=== PATIENT | female | born 1975 | race Asian ===

== ENCOUNTER 2016-08-23 13:11 | Day surgery (SDC) | payer OTHER ==
[~2016-08-23 13:11] MED LIST: OXYC-360 PO; PRENTAB72 PO; VITA100018 PO
[2016-08-23 13:44] VITALS: BP 137/96; PULSE 90; RESP 16; TEMP 98.6; O2SAT 100
--- NOTE | 2016-08-23 14:20 | PD.RAD ---
Post US Procedure Prog Note Pre Procedure Diagnosis: (1) Thyroid mass of unclear etiology Post Procedure Diagnosis: (1) Thyroid mass of unclear etiology Procedure Date: Aug 23, 2016 Supervising Radiologist: Alberto Matthews Proceduralist/Assist: Cristian Steinberg RDMS Anesthesia: Local Plan of Activity Patient to Unit: ROPU Patient Condition: Good See PACS Report for procedural detail/treatment Biopsy Side: Right Biopsy Procedure: Thyroid Specimen: Fine Needle Aspirate Alberto Matthews MD Aug 23, 2016 14:20
[2016-08-23] MEDS ORDERED: SODIUM BICARBONATE 8.4% INJ 50 ML ONE (14:26)
[2016-08-23] MEDS ORDERED: LIDOCAINE HCL 1% PF 30 ML VIAL ONE (14:26)
[2016-08-23 14:30] VITALS: BP 126/66; PULSE 80; RESP 16; O2SAT 100
[2016-08-23 14:45] VITALS: BP 123/69; PULSE 90; RESP 16; O2SAT 100
--- NOTE | 2016-08-23 14:57 | RADRPT ---
EXAM DATE/TIME: 08/23/2016 13:47 [facility] COMPARISON: No previous studies available for comparison. EXTERNAL COMPARISON: [facility], CT SOFT TISSUE NECK,W/ CONTRAST, Aug 09 2016. PET/CT - TUMOR METABOLISM, August. INDICATIONS : Right thyroid nodule. MEDICAL HISTORY : Right breast cancer. Carpal tunnel. Hypertension. Chemotherapy. SURGICAL HISTORY : Appendectomy. section. Right ear surgery. Right breast biopsy. ENCOUNTER: Initial ACUITY: 1 week PAIN SCORE: 0/10 LOCATION: Right neck ORGAN: Right thyroid lobe SPECIMENS: Five fine needle aspirate(s) submitted for pathologic evaluation. DEVICE: 25 gauge needle Post procedure scanning reveals no hematoma or other complication. The possibility does exist that the tissue obtained will be non-diagnostic. If the sample is non-romy gnostic a repeat biopsy or surgical biopsy may need to be performed. TECHNIQUE: 1. Ultrasound guidance for needle biopsy. 2. Needle biopsy. The risks, benefits, and alternatives to ultrasound guided needle biopsy were explained to the patien t in detail including the risk of bleeding and infection. Written and verbal informed consent was ob tained. With the patient on the ultrasound table, images were obtained. Overlying skin was prepped and drape d in the usual sterile fashion and Lidocaine was utilized as a local anesthetic. A needle was advanced into the identified target and the number of specimens as above obtained and kline bmitted for pathologic evaluation. The patient tolerated the procedure well and left the ultrasound suite in stable condition. CONCLUSION: Uncomplicated ultrasound guided needle biopsy. Alberto Matthews MD on August 23, 2016 at 14:55 Board Certified Radiologist. This report was verified electronically.
[2016-08-27] MEDS ORDERED: METO50TA11 PO (15:00)
[2016-08-27] MEDS ORDERED: HYDR12.56 PO (15:00)
== END 2016-08-23 14:55 | disposition home or self-care (01) ==
LOC: HROP 13:11 → HRIP 13:12 → HROP 14:55
PROVIDERS: ATTEND Internal Medicine Hematology & Oncology
DX: E04.1 Nontoxic single thyroid nodule (principal); C73 Malignant neoplasm of thyroid gland; C50.911 Malignant neoplasm of unspecified site of right female breast; I10 Essential (primary) hypertension
CPT/HCPCS: 10022; 76942; 88172; 88173

== ENCOUNTER → 2016-08-28 | Day surgery (SDC) | payer OTHER ==
[~2016-08-28] VITALS: Ht 154.9 cm; Wt 66.0 kg
[~2016-08-28] MED LIST changes: +BUPIVACAINE HCL PF 0.5% 30 ML VIAL ONE; +HEPARIN SODIUM - IV 10,000 UNITS/10 ML VIAL ONE; +HYDR12.56 PO; +Hydrocortisone Supp RECTAL; +K-TA10TA PO; +LACTATED RINGER'S 1000 ML INJ 1,000 ML ONE; +LEVA500T PO; +LIDO1KIT30 TOPICAL; +MECL-62 PO; +METO50TA11 PO; +MIDAZOLAM HCL 2 MG/2 ML VIAL ONE; +MORPHINE SULFATE 4 MG/ML INJ ONE; +ONDANSETRON HCL 4 MG/2 ML VIAL ONE; -OXYC-360 PO; +POTA-243 PO; -PRENTAB72 PO; +PREPCRE RECTAL; +PROC10TA PO; +SODIUM CHLORIDE 0.9% 20 ML VIAL ONE; -VITA100018 PO; +ZOFR4TAB PO; +ceFAZolin 2 GM PREMIX 50 ML ONE
[2016-08-28 11:45] VITALS: BP 120/84; PULSE 87; RESP 18; TEMP 98.3; O2SAT 100
[2016-08-28 14:55] VITALS: TEMP 98.4
--- NOTE | 2016-08-28 15:46 | RADRPT ---
EXAM DATE/TIME: 08/28/2016 15:16 [facility] COMPARISON: No previous studies available for comparison. INDICATIONS : Post infusaport. MEDICAL HISTORY : Right breast cancer. Hypertension. Chemotherapy. SURGICAL HISTORY : Right breast biopsy. ENCOUNTER: Initial ACUITY: 1 day PAIN SCORE: Non-responsive. LOCATION: Left chest FINDINGS: A single view of the chest demonstrates the lungs to be symmetrically aerated without evidence of mas s, infiltrate or effusion. The cardiomediastinal contours are unremarkable. Osseous structures are intact. Placement of left Ejtzzr-c-Rpkw catheter which terminates in superior vena cava near the righ t atrial junction no pneumothorax. CONCLUSION: Left Yatwov-l-Garw catheter placement no pneumothorax John Hairston MD on August 28, 2016 at 15:44 Board Certified Radiologist. This report was verified electronically.
[2016-08-28 16:35] VITALS: BP 111/71; PULSE 72; RESP 14; O2SAT 100
--- NOTE | 2016-09-03 18:15 | MP ---
cc: LENORE SANTOS DATE OF SURGERY 08/28/2016 PRINCIPAL DIAGNOSIS Right breast cancer PROCEDURE PERFORMED Left subclavian Nfwnss-F-Ikwv. SURGEON Lenore Santos MD ANESTHESIA TIVA INDICATION The patient is a 40-year-old female with a newly diagnosed clinical stage II right breast cancer. She requires neoadjuvant chemotherapy and now presents for Xhibbj-I-Gpzw placement to facilitate treatment. FINDINGS AT THE TIME OF SURGERY Normal left subclavian anatomy was identified. PROCEDURE PERFORMED After informed consent was obtained and site verification was performed, the patient was brought to the major operating room where she was given IV sedation. The right and left chest were prepped and draped in sterile fashion. She was given a single dose of IV Ancef and sequential compression hose were placed. The left infraclavicular area was anesthetized with 0.5% Marcaine plain and the left subclavian vein was identified via percutaneous cannulation. A J-wire was advanced via the Seldinger technique into the central circulation where its position was confirmed with fluoroscopy. Further local analgesia was then applied around the wire and both sharp and electrocautery dissection were used to create a subcutaneous pocket for the reservoir. The catheter was then measured out at 30 cm and cut off. A peel-away sheath and introducer were advanced over the wire using fluoroscopic guidance and the introducer and wire were removed. The catheter advanced easily through the peel-away sheath for a total distance of 20 cm and the peel-away sheath was then removed. Fluoroscopy demonstrated good catheter tip position at 17 cm and the catheter was cut off at this point and secured to the reservoir. The reservoir was noted to flush and aspirate easily and it was secured to the chest wall with a single 2-0 Prolene suture. Good hemostasis was noted and the wound was closed using interrupted 3-0 Vicryl subcutaneous sutures and a 4-0 Monocryl subcuticular suture. Steri-Strips and a sterile dressing were applied. The patient tolerated the procedure well with minimal blood loss and she was brought to the recovery room in good condition. All sponge and needle counts were correct at the conclusion of the case. Lenore Santos MD CEMartina/CYNTHIA /2:56 PM /6:11 PM
== END | disposition home or self-care (01) ==
LOC: CSDC 11:06
PROVIDERS: ATTEND Surgery
DX: Z45.2 Encounter for adjustment and management of vascular access device (principal); C50.911 Malignant neoplasm of unspecified site of right female breast; I10 Essential (primary) hypertension
CPT/HCPCS: 00532; 36561; 71010; 77001; C1788; J0690; J1644; J2250; J2270; J2405; J7120

== ENCOUNTER 2016-09-10 21:52 | Inpatient (IN) | payer OTHER ==
[~2016-09-10] VITALS: Ht 154.9 cm; Wt 66.6 kg
[~2016-09-10 21:52] MED LIST changes: -BUPIVACAINE HCL PF 0.5% 30 ML VIAL ONE; -HEPARIN SODIUM - IV 10,000 UNITS/10 ML VIAL ONE; -Hydrocortisone Supp RECTAL; -K-TA10TA PO; -LACTATED RINGER'S 1000 ML INJ 1,000 ML ONE; -LEVA500T PO; -LIDO1KIT30 TOPICAL; -MECL-62 PO; -MIDAZOLAM HCL 2 MG/2 ML VIAL ONE; -MORPHINE SULFATE 4 MG/ML INJ ONE; -ONDANSETRON HCL 4 MG/2 ML VIAL ONE; -POTA-243 PO; -PREPCRE RECTAL; -PROC10TA PO; -SODIUM CHLORIDE 0.9% 20 ML VIAL ONE; -ZOFR4TAB PO; -ceFAZolin 2 GM PREMIX 50 ML ONE
[2016-09-10 21:54] VITALS: BP 98/62; PULSE 123; RESP 20; TEMP 100.2; O2SAT 95
[2016-09-11] VITALS (11 sets, daily range): BP systolic 97–128; BP diastolic 54–63; PULSE 107–126; RESP 18–20; TEMP 98.2–101.6; O2SAT 96–100
[2016-09-11] MEDS ORDERED: ZOFR4TAB PO (02:32)
[2016-09-11] MEDS ORDERED: PROC10TA PO (02:32)
[2016-09-11] MEDS ORDERED: CEFEPIME INJ 2,000 MG in SODIUM CHLORIDE 0.9% INJ 100 ML IV STA (03:03)
[2016-09-11] MEDS ORDERED: VANCOMYCIN INJ 1,250 MG in SODIUM CHLOR 0.9% 250 ML INJ 250 ML IV STA (03:03)
--- NOTE | 2016-09-11 03:40 | RADRPT ---
EXAM DATE/TIME: 09/11/2016 01:24 [facility] COMPARISON: CHEST SINGLE AP, August 28, 2016, 15:16. INDICATIONS : Patient has had fever since yesterday. MEDICAL HISTORY : Right breast cancer. Carpal tunnel. Hypertension. Chemotherapy. SURGICAL HISTORY : Appendectomy. section. Right ear surgery. Right breast biopsy. ENCOUNTER: Initial ACUITY: 1 day PAIN SCORE: 0/10 LOCATION: Bilateral chest FINDINGS: A single view of the chest demonstrates the lungs to be symmetrically aerated without evidence of mas s, infiltrate or effusion. The cardiomediastinal contours are unremarkable. Osseous structures are intact. Left subclavian approach sultana catheter again seen. CONCLUSION: No acute disease. Adriano Manley MD on September 11, 2016 at 3:38 Board Certified Radiologist. This report was verified electronically.
[2016-09-11 04:01] LABS: AUTOMATED NEUTROPHIL # 2.5 TH/MM3 (1.8-7.7); EOSINOPHIL % 0.9 % (0.0-4.0); HEMATOCRIT 31.8 % (35.0-46.0); LYMPH % 26.6 % (9.0-44.0); LYMPHOCYTE # 1.1 TH/MM3 (1.0-4.8); MEAN CELL VOLUME 83.2 FL (80.0-100.0); MEAN CORPUSCULAR HEMOGLOBIN 29.4 PG (27.0-34.0); MEAN CORPUSCULAR HGB CONC 35.4 % (32.0-36.0); MONO % 10.1 % (0.0-8.0); NEUT % 61.4 % (16.0-70.0); PLATELET COUNT 117 TH/MM3 (150-450); RED BLOOD COUNT 3.82 MIL/MM3 (4.00-5.30); RED CELL DISTRIBUTION WIDTH 13.3 % (11.6-17.2); WHITE BLOOD COUNT 4.1 TH/MM3 (4.0-11.0)
[2016-09-11 04:08] LABS: HEMO FLAGS AUTO DIFF
[2016-09-11 04:26] LABS: ALKALINE PHOSPHATASE 151 U/L (45-117); ALT (GPT) 139 U/L (10-53); ANION GAP 9 MEQ/L (5-15); AST (GOT) 116 U/L (15-37); BICARBONATE 26.6 MEQ/L (21.0-32.0); BLOOD UREA NITROGEN 17 MG/DL (7-18); CHLORIDE 96 MEQ/L (98-107); GLOMERULAR FILTRATION RATE 64 ML/MIN (>89); SODIUM (NA) 132 MEQ/L (136-145); TOTAL BILIRUBIN ADULT 0.8 MG/DL (0.2-1.0)
[2016-09-11 04:36] LABS: POTASSIUM 2.9 MEQ/L (3.5-5.1)
--- NOTE | 2016-09-11 04:49 | PD ---
HPI Chief Complaint: Fever Time Seen by Provider: 03:03 Travel History International Travel<30 days: No Contact w/Intl Traveler<30days: No Traveled to known affect area: No History of Present Illness HPI 40-year-old female arrives to the ER complaining of rhinorrhea and cough and congestion. She has breast cancer. She is currently undergoing chemotherapy with most recent dose last night. She has had a fever or about 1 day. She reports rhinorrhea and cough with yellow phlegm production. She reports nausea without vomiting. Temperature maximum at home was 100.7. Oncology Dr Galeana. PMD Dr Rockwell. [facility] Past Medical History Cancer: Yes ( r breast ) Cardiovascular Problems: No Chemotherapy: Yes (09/05/16) Diabetes: No Endocrine: No Genitourinary: No Hepatitis: No Hiatal Hernia: No Hypertension: Yes Immune Disorder: No Musculoskeletal: No Neurologic: No Reproductive: No Respiratory: No Thyroid Disease: No Tetanus Vaccination: > 5 Years Influenza Vaccination: No ?: Not : 1 Para: 0 Miscarriage: 0 : 0 Past Surgical History Abdominal Surgery: Yes (appy) AICD: No Appendectomy: Yes Ear Surgery: Yes (r ear tympanic) Gynecologic Surgery: Yes (c section) Joint Replacement: No Pacemaker: No Other Surgery: Yes Social History Alcohol Use: No Tobacco Use: No Substance Use: No Allergies-Medications (Allergen,Severity, Reaction): Coded Allergies: Hydrocodone (Verified Allergy, Severe, Shortness of Breath, 09/11/16) Oxycodone (Verified Allergy, Severe, Shortness of Breath, 09/11/16) Methocarbamol (Verified Adverse Reaction, Severe, PRESSURE ON CHEST, ) Reported Meds & Prescriptions Reported Meds & Active Scripts Active Reported Zofran (Ondansetron HCl) 4 Mg Tab 4 Mg PO Q8HR PRN Prochlorperazine Maleate 10 Mg Tab 10 Mg PO Q6H PRN Hydrochlorothiazide 12.5 Mg Tab 12.5 Mg PO DAILY Metoprolol Succinate ER 24 HR (Metoprolol Succinate) 50 Mg Tab 50 Mg PO DAILY Review of Systems Except as stated in HPI: all other systems reviewed are Neg Physical Exam Narrative GENERAL: 40-year-old female well-nourished well-developed SKIN: Warm and dry. HEAD: Atraumatic. Normocephalic. Alopecia EYES: Pupils equal and round. No scleral icterus. No injection or drainage. ENT: No nasal bleeding or discharge. Mucous membranes pink and moist. NECK: Trachea midline. No JVD. CARDIOVASCULAR: Regular rate and rhythm. No murmur appreciated. RESPIRATORY: No accessory muscle use. Clear to auscultation. Breath sounds equal bilaterally. GASTROINTESTINAL: Abdomen soft, non-tender, nondistended. Hepatic and splenic margins not palpable. MUSCULOSKELETAL: No obvious deformities. No clubbing. No cyanosis. No edema. NEUROLOGICAL: Awake and alert. No obvious cranial nerve deficits. Motor grossly within normal limits. Normal speech. PSYCHIATRIC: Appropriate mood and affect; insight and judgment normal. Data Data Last Documented VS Vital Signs Date Time Temp Pulse Resp B/P Pulse Ox O2 Delivery O2 Flow Rate FiO2 09/11/16 04:13 98 Room Air 09/11/16 02:47 101.6 09/11/16 02:25 20 09/10/16 21:54 123 98/62 Orders Complete Blood Count With Diff (09/11/16 03:03) Comprehensive Metabolic Panel (09/11/16 03:03) Lactic Acid Sepsis Protocol (09/11/16 03:03) Urinalysis - C+S If Indicated (09/11/16 03:03) Influenzae A/B Antigen (09/11/16 03:03) Blood Culture (09/11/16 03:03) Chest, Single Ap (09/11/16 03:03) Blood Glucose (09/11/16 03:03) Ecg Monitoring (09/11/16 03:03) Iv Access Insert/Monitor (09/11/16 03:03) Oximetry (09/11/16 03:03) Oxygen Administration (09/11/16 03:03) Vancomycin Inj (Vancomycin Inj) (09/11/16 03:03) Cefepime Inj (Maxipime Inj) (09/11/16 03:03) Admit Order (Ed Use Only) (09/11/16 04:49) Labs Laboratory Tests Test 09/11/16 03:50 White Blood Count 4.1 TH/MM3 Red Blood Count 3.82 MIL/MM3 Hemoglobin 11.2 GM/DL Hematocrit 31.8 % Mean Corpuscular Volume 83.2 FL Mean Corpuscular Hemoglobin 29.4 PG Mean Corpuscular Hemoglobin 35.4 % Concent Red Cell Distribution Width 13.3 % Platelet Count 117 TH/MM3 Mean Platelet Volume 9.3 FL Neutrophils (%) (Auto) 61.4 % Lymphocytes (%) (Auto) 26.6 % Monocytes (%) (Auto) 10.1 % Eosinophils (%) (Auto) 0.9 % Basophils (%) (Auto) 1.0 % Neutrophils # (Auto) 2.5 TH/MM3 Lymphocytes # (Auto) 1.1 TH/MM3 Monocytes # (Auto) 0.4 TH/MM3 Eosinophils # (Auto) 0.0 TH/MM3 Basophils # (Auto) 0.0 TH/MM3 CBC Comment AUTO DIFF Differential Total Cells 100 Counted Neutrophils % (Manual) 65 % Band Neutrophils % 9 % Lymphocytes % 16 % Monocytes % 9 % Neutrophils # (Manual) 3.1 TH/MM3 Metamyelocytes 1 % Differential Comment FINAL DIFF MANUAL Dohle Bodies PRESENT Platelet Estimate LOW Platelet Morphology Comment NORMAL Red Cell Morphology Comment NORMAL Sodium Level 132 MEQ/L Potassium Level 2.9 MEQ/L Chloride Level 96 MEQ/L Carbon Dioxide Level 26.6 MEQ/L Anion Gap 9 MEQ/L Blood Urea Nitrogen 17 MG/DL Creatinine 0.98 MG/DL Estimat Glomerular Filtration 64 ML/MIN Rate Random Glucose 110 MG/DL Lactic Acid Level 1.5 mmol/L Calcium Level 8.6 MG/DL Total Bilirubin 0.8 MG/DL Aspartate Amino Transf 116 U/L (AST/SGOT) Alanine Aminotransferase 139 U/L (ALT/SGPT) Alkaline Phosphatase 151 U/L Total Protein 7.8 GM/DL Albumin 3.7 GM/DL [facility] Medical Decision Making Medical Screen Exam Complete: Yes Emergency Medical Condition: Yes Medical Record Reviewed: Yes Differential Diagnosis Sepsis due to pneumonia, UTI, viral syndrome, influenza, allergies, UTI, dehydration Narrative Course CBC & BMP Diagram 09/11/16 03:50 AST 116 ALT 139 Alk phos 151 Last 24 hours Impressions Chest X-Ray 09/11/16 0303 Signed Impressions: Service Date/Time: Sunday, September 11, 2016 01:24 - CONCLUSION: No acute disease. Adriano Manley MD Patient is on chemotherapy. She has a fever. Blood cultures obtained cefepime and vancomycin started. Case discussed with Dr. Archuleta Sepsis Criteria SIRS Criteria (2 or more): Temp > 100.9 or < 96.8, RR > 20 or PaCO2 < 32 Sepsis Criteria (SIRS+source): Infect source susp/known Diagnosis Primary Impression: Sepsis Qualified Code: A41.9 - Sepsis, due to unspecified organism Additional Impressions: Abnormal LFTs (liver function tests) Hypokalemia Effect of chemotherapy Qualified Code: T45.1X5A - Effect of chemotherapy, initial encounter Admitting Information Admitting Physician Requests: Admit Phoenix West MD Sep 11, 2016 04:49
[2016-09-11 04:58] LABS: BANDS 9 % (0-6); METAMYELOCYTES 1 % (0-1); NEUTROPHIL # MANUAL DIFF 3.1 TH/MM3 (1.8-7.7); PLATELET MORPHOLOGY NORMAL (NORMAL); POLYS (SEG NEUTROPHILS) 65 % (16-70); SCAN/DIFF FINAL DIFF MANUAL; WBC DIFF SAMPLE 100
[2016-09-11 04:59] LABS: DOHLE BODIES PRESENT (NONE SEEN); PLATELET ESTIMATE SMEAR LOW (NORMAL)
[2016-09-11] MEDS ORDERED: POTASSIUM CHLORIDE 20 MEQ CONTROLLED RELEASE TAB PO ONE (06:45)
[2016-09-11] MEDS ORDERED: SODIUM CHLORIDE 0.9% FLUSH 5 ML FLUSH FLUSH PRN (07:00)
[2016-09-11] MEDS ORDERED: BISACODYL 10 MG SUPP PR PRN (07:00)
[2016-09-11] MEDS ORDERED: ACETAMINOPHEN 325 MG TAB PO ONE (07:00)
[2016-09-11] MEDS ORDERED: ONDANSETRON HCL 4 MG/2 ML VIAL IVP PRN (07:00)
[2016-09-11] MEDS ORDERED: NALOXONE HCL 0.4 MG/ML AMP IV PRN (07:00)
[2016-09-11] MEDS ORDERED: ACETAMINOPHEN 325 MG TAB PO PRN (07:00)
[2016-09-11] MEDS ORDERED: HYDROmorphone HCL PF 1 MG/ML VIAL IV PUSH ONE (07:45)
[2016-09-11] MEDS: DOCUSATE SODIUM 100 MG CAP PO SCH ×3 (08:04→20:07)
[2016-09-11] MEDS: ENOXAPARIN SODIUM 40 MG/0.4 ML SYRINGE SQ SCH (08:05)
[2016-09-11] MEDS: SODIUM CHLORIDE 0.9% FLUSH 5 ML FLUSH FLUSH SCH ×2 (09:00→20:08)
[2016-09-11 11:55] LABS: BACTERIA, URINE FEW /hpf; BLOOD, URINE MOD (NEG); GLUCOSE,URINE NEG (NEG); KETONE, URINE NEG (NEG); MUCUS URINE FEW /lpf (OCC); NITRITE,URINE NEG (NEG); SQUAMOUS EPITHELIAL CELL URINE <1 /hpf (0-5); URINE COLOR YELLOW (YELLW/STRAW)
[2016-09-11 11:57] LABS: COMMENT (UR) CATH-CULTURE IND; CULTURE IF INDICATED CATH CULTURE IND
--- NOTE | 2016-09-11 14:14 | HHI.HP ---
History of Present Illness Service Primary Care Primary Care Physician Eriberto Rockwell, DO Admission Diagnosis Sepsis (Respiratory Source) Diagnoses: (1) Sepsis Diagnosis: Principal (2) Thyroid mass of unclear etiology Diagnosis: Secondary (3) Abnormal LFTs (liver function tests) (4) Effect of chemotherapy Diagnosis: Secondary (5) Breast cancer Diagnosis: Secondary History of Present Illness This is a very pleasant 40 y/o [place] female who presented to the ED with SOB, fever and cough. She was diagnosed with right breast cancer in 07/2016 and has been under treatment by Dr. Galeana with chemotherapy and neulasta for both the breast cancer. The patient states she is also being followed by Dr. Galeana for a thyroid nodule. Upon admission she was febrile up to 101.6. She has a very poor appetite and has pain with swallowing, so is not drinking and eating as she usually does. She has been admitted for further evaluation and management. Sepsis Criteria SIRS Criteria (2 or more): Temp > 100.9 or < 96.8, Heart rate over 90 Criteria Outcome: Meets SIRS criteria Review of Systems Constitutional: COMPLAINS OF: Fatigue, Fever, Change in appetite Ears, nose, mouth, throat: COMPLAINS OF: Throat pain, Sinus Pain Respiratory: COMPLAINS OF: Shortness of breath Past Family Social History Allergies: Coded Allergies: Hydrocodone (Verified Allergy, Severe, Shortness of Breath, 09/11/16) Oxycodone (Verified Allergy, Severe, Shortness of Breath, 09/11/16) Methocarbamol (Verified Adverse Reaction, Severe, PRESSURE ON CHEST, ) Past Medical History Hypertension Thyroid nodule Right breast cancer on chemo Carpal tunnel surgery Past Surgical History Right ear surgery X 2 Right breast biopsy X 2 section Appendectomy Reported Medications Reported Meds & Active Scripts Active Reported Zofran (Ondansetron HCl) 4 Mg Tab 4 Mg PO Q8HR PRN Prochlorperazine Maleate 10 Mg Tab 10 Mg PO Q6H PRN Hydrochlorothiazide 12.5 Mg Tab 12.5 Mg PO DAILY Metoprolol Succinate ER 24 HR (Metoprolol Succinate) 50 Mg Tab 50 Mg PO DAILY Active Ordered Medications Current Medications Medications (Trade) Dose Ordered Sig/Carlitos Route Start Time Stop Time Status Last Admin (NS Flush) 2 ml UNSCH PRN FLUSH 09/11/16 07:00 (NS Flush) 2 ml BID FLUSH 09/11/16 09:00 (Tylenol) 650 mg Q4H PRN PO 09/11/16 07:00 (Zofran Inj) 4 mg Q6H PRN IVP 09/11/16 07:00 (Dulcolax Supp) 10 mg DAILY PRN NC 09/11/16 07:00 (Colace) 100 mg Q12HR PO 09/11/16 07:00 09/11/16 08:04 (Narcan Inj) 0.4 mg UNSCH PRN IV 09/11/16 07:00 (Lovenox Inj) 40 mg Q24H SQ 09/11/16 08:00 09/11/16 08:05 Family History Positive for diabetes and hypertension, both parents alive and well. Social History Negative for any history of tobacco, ETOH or illicits. Physical Exam Vital Signs Vital Signs Date Time Temp Pulse Resp B/P Pulse Ox O2 Delivery O2 Flow Rate FiO2 09/11/16 09:50 98.2 114 18 128/59 98 Room Air 09/11/16 08:50 100.1 115 20 97/57 98 Room Air 09/11/16 07:35 99 21 09/11/16 07:01 107 97/54 09/11/16 06:43 99.1 110 18 99/63 100 Room Air 09/11/16 04:13 98 Room Air 09/11/16 04:13 98 Room Air 09/11/16 02:47 101.6 09/11/16 02:25 20 100 Room Air 09/10/16 21:54 100.2 123 20 98/62 95 Room Air Physical Exam GENERAL: This is a well-nourished, well-developed patient, in no apparent distress. SKIN: No rashes, ecchymoses or lesions. Cool and dry. HEAD: Atraumatic. Normocephalic. No temporal or scalp tenderness. EYES: Pupils equal round and reactive. Extraocular motions intact. No scleral icterus. No injection or drainage. ENT: Nose without bleeding, purulent drainage or septal hematoma. Throat without erythema, tonsillar hypertrophy or exudate. Uvula midline. Airway patent. NECK: Trachea midline. No JVD or lymphadenopathy. Supple, nontender, no meningeal signs. CARDIOVASCULAR: Tachycardic rate, regular rhythm without murmurs, gallops, or rubs. RESPIRATORY: Scattered wheezes and rhonchi GASTROINTESTINAL: Abdomen soft, non-tender, nondistended. No hepato-splenomegaly , or palpable masses. No guarding. MUSCULOSKELETAL: Extremities without clubbing, cyanosis, or edema. No joint tenderness, effusion, or edema noted. No calf tenderness. Negative Homans sign bilaterally. NEUROLOGICAL: Awake and alert. Cranial nerves II through XII intact. Motor and sensory grossly within normal limits. Five out of 5 muscle strength in all muscle groups. Normal speech. Laboratory Laboratory Tests Test 09/11/16 09/11/16 09/11/16 03:50 09:55 11:20 White Blood Count 4.1 Red Blood Count 3.82 Hemoglobin 11.2 Hematocrit 31.8 Mean Corpuscular Volume 83.2 Mean Corpuscular Hemoglobin 29.4 Mean Corpuscular Hemoglobin 35.4 Concent Red Cell Distribution Width 13.3 Platelet Count 117 Mean Platelet Volume 9.3 Neutrophils (%) (Auto) 61.4 Lymphocytes (%) (Auto) 26.6 Monocytes (%) (Auto) 10.1 Eosinophils (%) (Auto) 0.9 Basophils (%) (Auto) 1.0 Neutrophils # (Auto) 2.5 Lymphocytes # (Auto) 1.1 Monocytes # (Auto) 0.4 Eosinophils # (Auto) 0.0 Basophils # (Auto) 0.0 CBC Comment AUTO DIFF Differential Total Cells 100 Counted Neutrophils % (Manual) 65 Band Neutrophils % 9 Lymphocytes % 16 Monocytes % 9 Neutrophils # (Manual) 3.1 Metamyelocytes 1 Differential Comment FINAL DIFF MANUAL Dohle Bodies PRESENT Platelet Estimate LOW Platelet Morphology Comment NORMAL Red Cell Morphology Comment NORMAL Sodium Level 132 Potassium Level 2.9 Chloride Level 96 Carbon Dioxide Level 26.6 Anion Gap 9 Blood Urea Nitrogen 17 Creatinine 0.98 Estimat Glomerular Filtration 64 Rate Random Glucose 110 Lactic Acid Level 1.5 Calcium Level 8.6 Total Bilirubin 0.8 Aspartate Amino Transf 116 (AST/SGOT) Alanine Aminotransferase 139 (ALT/SGPT) Alkaline Phosphatase 151 Total Protein 7.8 Albumin 3.7 Troponin I LESS THAN 0.02 Urine Color YELLOW Urine Turbidity HAZY Urine pH 6.0 Urine Specific [place] 1.014 Urine Protein 30 Urine Glucose (UA) NEG Urine Ketones NEG Urine Occult Blood MOD Urine Nitrite NEG Urine Bilirubin NEG Urine Urobilinogen LESS THAN 2.0 Urine Leukocyte Esterase NEG Urine RBC 20 Urine WBC 1 Urine Squamous Epithelial <1 Cells Urine Bacteria FEW Urine Mucus FEW Microscopic Urinalysis Comment CATH-CULTURE IND Date/Time Procedure Status Source Growth 09/11/16 11:20 Urine Culture Received Urine Catheterized Urine Pending 09/11/16 04:00 Influenza Types A,B Antigen (JORGE) - Final Complete Nasal Aspirate NEGATIVE FOR FLU A AND B ANTIGEN.... 09/11/16 03:50 Aerobic Blood Culture Received Blood Peripheral Pending 09/11/16 03:50 Anaerobic Blood Culture Received Blood Peripheral Pending Result Diagram: 09/11/16 0350 09/11/16 0350 Imaging Last 24 hours Impressions Chest X-Ray 09/11/16 0303 Signed Impressions: Service Date/Time: Friday, September 11, 2016 01:24 - CONCLUSION: No acute disease. Adriano Manley MD Assessment and Plan Problem List: (1) Thyroid mass of unclear etiology Status: Chronic Plan: Followed by Dr. Galeana. (2) Hypokalemia Status: Acute Plan: Repleted in ED. Recheck pending. (3) Sepsis Status: Acute Plan: Lactate negative, blood cultures drawn, ID consult requested for assistance as patient is immunocompromised, receiving chemotherapy for breast cancer. (4) Abnormal LFTs (liver function tests) Status: Acute Plan: May be due to chemotherapy. Dr. Galeana consulted to follow as she is currently treating patient. (5) Breast cancer Status: Acute Plan: Consult to Dr. Galeana. Discussed Condition With Pt., , RN, Dr. Rockwell. Problem Qualifiers (1) Sepsis: Qualified Code: A41.9 - Sepsis, due to unspecified organism (2) Effect of chemotherapy: Qualified Code: T45.1X5A - Effect of chemotherapy, initial encounter (3) Breast cancer: Qualified Code: C50.511 - Malignant neoplasm of lower-outer quadrant of right female breast Carmen Calvillo Sep 11, 2016 14:14
[2016-09-11] MEDS ORDERED: Vancomycin Consult Pharmacy 1 EA OTHER SCH (14:45)
--- NOTE | 2016-09-11 15:04 | PD.CONS ---
History of Present Illness Service Infectious disease Consult Requested By Dr Rockwell Reason for Consult Evaluate patient with fever Primary Care Physician Eriberto Rockwell, DO Diagnoses: History of Present Illness Patient is a 40-year-old female with a diagnosis of right breast cancer, has been undergoing chemotherapy, presented to the hospital complaining of 2-3 day history of cough with yellow sputum production, as well as 1 day history of fevers. Patient is on her second cycle of chemotherapy, and the last dose of chemotherapy she got was September 05. After the chemotherapy she started having some cough with yellow sputum production, as well as some chest discomfort especially when she coughs. Her appetite has been poor. Then she started having fevers up to 100.7 her WBC is normal. Urinalysis unremarkable. She did have some mild dysuria. She denies any nausea or vomiting or any abdominal pain. After her first chemotherapy she had some problem with mild sores which improved. This time she did not have any sores in her mouth. Patient's liver function tests are also abnormal, and it was normal from blood work dated September 05. Patient states she's had previous history of gallstones. Patient stated that her 4-year-old son to daycare has been sick the last 2 weeks with some runny nose and cough. The son however has not been had any fevers. Infectious disease consultations were requested to evaluate the patient. Review of Systems Constitutional: COMPLAINS OF: Fever, Chills, Change in appetite Eyes: DENIES: Eye pain Ears, nose, mouth, throat: DENIES: Oral lesions, Throat pain, Ear Pain, Sinus Pain, Toothache Respiratory: COMPLAINS OF: Cough, Sputum production, DENIES: Shortness of breath Cardiovascular: COMPLAINS OF: Chest pain, DENIES: Palpitations, Syncope Gastrointestinal: DENIES: Abdominal pain, Diarrhea, Nausea, Vomiting, Difficulty Swallowing Genitourinary: COMPLAINS OF: Dysuria Musculoskeletal: COMPLAINS OF: Muscle aches, DENIES: Joint pain, Joint Swelling Integumentary: DENIES: Rash Neurologic: DENIES: Headache Psychiatric: DENIES: Anxiety, Confusion Past Family Social History Allergies: Coded Allergies: Hydrocodone (Verified Allergy, Severe, Shortness of Breath, 09/11/16) Oxycodone (Verified Allergy, Severe, Shortness of Breath, 09/11/16) Methocarbamol (Verified Adverse Reaction, Severe, PRESSURE ON CHEST, 2/8/ 17) Past Medical History Hypertension Thyroid nodule Right breast cancer on chemo Carpal tunnel surgery One History of gallstones Past Surgical History Right ear surgery X 2 Right breast biopsy X 2 section Appendectomy Port placement Active Ordered Medications Lovenox Zofran Tylenol Dulcolax Colace Got one dose of cefepime and Vancomycin Social History , has a 4-year-old son Works as a TIMBER [employer] No smoking No ETOH abuse No illicit drug use Physical Exam Vital Signs Vital Signs Date Time Temp Pulse Resp B/P Pulse Ox O2 Delivery O2 Flow Rate FiO2 09/11/16 09:50 98.2 114 18 128/59 98 Room Air 09/11/16 08:50 100.1 115 20 97/57 98 Room Air 09/11/16 07:35 99 21 09/11/16 07:01 107 97/54 09/11/16 06:43 99.1 110 18 99/63 100 Room Air 09/11/16 04:13 98 Room Air 09/11/16 04:13 98 Room Air 09/11/16 02:47 101.6 09/11/16 02:25 20 100 Room Air 09/10/16 21:54 100.2 123 20 98/62 95 Room Air Physical Exam GENERAL: This is a well-nourished, well-developed femal,e awake and alert, looks acutely ill appearing, in no apparent distress. SKIN: Warm and dry, no generalized rash. HEAD: Atraumatic. Normocephalic. No temporal or scalp tenderness. Hair has been shaved short EYES: Conjunctivae. Pupils equal round and reactive. Extraocular motions intact. No scleral icterus. No injection or drainage. ENT: Nose without bleeding, or purulent drainage. Moist oral mucosa. No oral thrush. Throat with erythema, but no exudate. Uvula midline. Airway patent. NECK: Trachea midline. No JVD or lymphadenopathy. Supple, nontender, no meningeal signs. CARDIOVASCULAR: Regular rate and rhythm without murmurs, gallops, or rubs. RESPIRATORY: Clear to auscultation. Breath sounds equal bilaterally. No wheezes , rales, or rhonchi. Decreased vocal fremitus R base. Port L upper chest, accessed, with no evidence of infection GASTROINTESTINAL: Abdomen soft, non-tender, nondistended. Bowel sounds are present and normoactive. No hepato-splenomegaly, or palpable masses. No guarding. MUSCULOSKELETAL: Extremities without clubbing, cyanosis, or edema. No joint tenderness, effusion, or edema noted. No calf tenderness. Negative Homans sign bilaterally. NEUROLOGICAL: Awake and alert. Cranial nerves II through XII intact. Motor and sensory grossly within normal limits. Five out of 5 muscle strength in all muscle groups. Normal speech. PSYCH: Calm and cooperative LINE: Port without any evidence of infection Laboratory Laboratory Tests Test 09/11/16 09/11/16 09/11/16 03:50 09:55 11:20 White Blood Count 4.1 Red Blood Count 3.82 Hemoglobin 11.2 Hematocrit 31.8 Mean Corpuscular Volume 83.2 Mean Corpuscular Hemoglobin 29.4 Mean Corpuscular Hemoglobin 35.4 Concent Red Cell Distribution Width 13.3 Platelet Count 117 Mean Platelet Volume 9.3 Neutrophils (%) (Auto) 61.4 Lymphocytes (%) (Auto) 26.6 Monocytes (%) (Auto) 10.1 Eosinophils (%) (Auto) 0.9 Basophils (%) (Auto) 1.0 Neutrophils # (Auto) 2.5 Lymphocytes # (Auto) 1.1 Monocytes # (Auto) 0.4 Eosinophils # (Auto) 0.0 Basophils # (Auto) 0.0 CBC Comment AUTO DIFF Differential Total Cells 100 Counted Neutrophils % (Manual) 65 Band Neutrophils % 9 Lymphocytes % 16 Monocytes % 9 Neutrophils # (Manual) 3.1 Metamyelocytes 1 Differential Comment FINAL DIFF MANUAL Dohle Bodies PRESENT Platelet Estimate LOW Platelet Morphology Comment NORMAL Red Cell Morphology Comment NORMAL Sodium Level 132 Potassium Level 2.9 Chloride Level 96 Carbon Dioxide Level 26.6 Anion Gap 9 Blood Urea Nitrogen 17 Creatinine 0.98 Estimat Glomerular Filtration 64 Rate Random Glucose 110 Lactic Acid Level 1.5 Calcium Level 8.6 Total Bilirubin 0.8 Aspartate Amino Transf 116 (AST/SGOT) Alanine Aminotransferase 139 (ALT/SGPT) Alkaline Phosphatase 151 Total Protein 7.8 Albumin 3.7 Troponin I LESS THAN 0.02 Urine Color YELLOW Urine Turbidity HAZY Urine pH 6.0 Urine Specific [place] 1.014 Urine Protein 30 Urine Glucose (UA) NEG Urine Ketones NEG Urine Occult Blood MOD Urine Nitrite NEG Urine Bilirubin NEG Urine Urobilinogen LESS THAN 2.0 Urine Leukocyte Esterase NEG Urine RBC 20 Urine WBC 1 Urine Squamous Epithelial <1 Cells Urine Bacteria FEW Urine Mucus FEW Microscopic Urinalysis Comment CATH-CULTURE IND Date/Time Procedure Status Source Growth 09/11/16 11:20 Urine Culture Received Urine Catheterized Urine Pending 09/11/16 04:00 Influenza Types A,B Antigen (JORGE) - Final Complete Nasal Aspirate NEGATIVE FOR FLU A AND B ANTIGEN.... 09/11/16 03:50 Aerobic Blood Culture Received Blood Peripheral Pending 09/11/16 03:50 Anaerobic Blood Culture Received Blood Peripheral Pending Result Diagram: 09/11/16 0350 09/11/16 0350 Imaging RADIOLOGY STUDIES/FILMS REVIEWED Chest X-Ray 09/11/16 0303 Signed Impressions: Service Date/Time: Sunday, September 11, 2016 01:24 - CONCLUSION: No acute disease. Adriano Manley MD Assessment and Plan Assessment and Plan IMPRESSION Sepsis on admission, symptoms all point to respiratory, possibly early PNA, - CXR clear, but she is congested and has pleuritic pain when she coughs Possible early PNA - ?atypical has some ear pain and elevated LFT R breast CA - undergoing chemo Elevated LFT, exam is benigh, ?due to sepsis RECOMMENDATION Follow C/S Check legio and pneumo Ag CT chest US GB Zosyn, vanco , and Zithromax Monitor temps Follow counts Monitor progress I will determine course of Abx depending on results of work-up and culture results I will follow along with you Thank you for this consultation Discussed Condition With Explained plan to the patient Marii Dacosta MD Sep 11, 2016 15:04
[2016-09-11] MEDS: PIPERACIL-TAZO 4.5 GM PREMIX 100 ML IV SCH ×2 (16:00→22:17)
[2016-09-11] MEDS ORDERED: IOHEXOL 350 MG/ML 10 ML VIAL (for RAD DIAG) IV ONE (16:28)
--- NOTE | 2016-09-11 16:58 | RADRPT ---
EXAM DATE/TIME: 09/11/2016 16:15 [facility] COMPARISON: No previous studies available for comparison. INDICATIONS : Sepsis, cough, and respiratory issues IV CONTRAST: 97 cc Omnipaque 350 (iohexol) IV RADIATION DOSE: 7.89 CTDIvol (mGy) MEDICAL HISTORY : Hypertension. SURGICAL HISTORY : None. ENCOUNTER: Subsequent ACUITY: 1 day PAIN SCALE: 4/10 LOCATION: chest TECHNIQUE: Volumetric scanning of the chest was performed. Using automated exposure control and adjustment of the mA and/or kV according to patient size, radiation dose was kept as low as reasonab ly achievable to obtain optimal diagnostic quality images. FINDINGS: Very minimal air-space disease is seen in the right middle lobe and the left base. There is no axillary adenopathy. There is no radiographically significant mediastinal adenopathy. T here is no evidence for central pulmonary emboli. There is no associated pleural effusion. Gallstones are evident in a contracted gallbladder. A small 1 cm low density lesion is present in th e liver, too small to characterize. CONCLUSION: 1. Minimal air-space disease as described above. 2. There is no evidence for central pulmonary emboli. 3. Gallstones in a small contracted gallbladder. Lopez Spangler MD FACR on September 11, 2016 at 16:48 Board Certified Radiologist. This report was verified electronically.
[2016-09-11] MEDS: VANCOMYCIN 1,000 MG/NS 250 ML IV SCH ×2 (17:19)
[2016-09-11] MEDS: AZITHROMYCIN 250 MG TAB PO SCH (17:25)
--- NOTE | 2016-09-11 18:32 | EKG ---
Date Performed: 09/11/2016 Time Performed: 07:08:20 PTAGE: 40 years EKG: SINUS TACHYCARDIA ST DEVIATION AND MODERATE T-WAVE ABNORMALITY, CONSIDER ANTEROLATERAL ISCH EMIA ST DEVIATION AND MODERATE T-WAVE ABNORMALITY, CONSIDER INFERIOR ISCHEMIA ABNORMAL ECG NO PREVIOUS TRACING DOCTOR: Mukund West Interpretating Date/Time 09/11/2016 18:32:15
--- NOTE | 2016-09-11 19:17 | RADRPT ---
EXAM DATE/TIME: 09/11/2016 18:09 [facility] COMPARISON: No previous studies available for comparison. EXTERNAL COMPARISON : [facility], PET/CT - TUMOR METABOLISM, August 07, 2016 INDICATIONS : Abnormal labs. MEDICAL HISTORY : Hypertension. Dyspnea. Right breast cancer. Thyroid mass. Sepsis. Pneumonia. Carpal tunnel. Galls tones. SURGICAL HISTORY : section. Appendectomy. Right ear surgery. Right breast biopsy. Chemotherapy. ENCOUNTER: Initial ACUITY: 1 day PAIN SCORE: 0/10 LOCATION: Right upper quadrant MEASUREMENTS: LIVER: 13.4 cm length COMMON DUCT: 6 mm RIGHT KIDNEY: 11.2 x 4.6 x 4.4 cm FINDINGS: Pancreas not well-visualized. 7 mm cyst right lobe liver. Portal venous flow normal direction. Multip le gallstones present in the gallbladder. Negative sonographic Jenkins's sign. Right kidney measures 1 1.2 cm in length without hydronephrosis. CONCLUSION: 1. Gallstones in gallbladder. No biliary ductal dilatation. Small cyst right lobe liver. No free flui d. Bennie Ivy MD on September 11, 2016 at 19:14 Board Certified Radiologist. This report was verified electronically.
[2016-09-11] MEDS ORDERED: diphenhydrAMINE HCL 25 MG CAP PO ONE (19:30)
[2016-09-11 20:37] LABS: HEMOGLOBIN A1a 1.1 %
[2016-09-11 20:38] LABS: HEMOGLOBIN A1b 0.9 %; HEMOGLOBIN Ao 85.1 %; HEMOGLOBIN F 1.1 %; HEMOGLOBIN LA1C 1.8 %; HEMOGLOBIN P3 3.7 %
--- NOTE | 2016-09-11 22:29 | MB ---
cc: ISELA QUEZADA GERALD R. D.O. DATE OF CONSULTATION: 09/11/2016 DATE OF : [address] Rockwell CHIEF COMPLAINT Dr. Rockwell requested consultation for Ms. Encinas regarding HER2/abel over expressing breast cancer. HISTORY OF PRESENT ILLNESS Mrs. Encinas is a 40-year-old woman, well-known patient, with history of hypertension diagnosed locally advanced HER2/abel over expressing right breast cancer. She had high-risk disease in terms of her breast cancer. Initial CT PET scan staging shows no evidence of metastatic disease. She was started on neoadjuvant chemotherapy with Taxotere, carboplatin, Herceptin and pertuzumub. She did extremely well with her first cycle of chemotherapy. Her treatment was administered peripheral vein access. During the course of staging evaluation she was found to have a right thyroid nodule. She underwent right thyroid FNA on August 23, 2016, that shows second primary, papillary thyroid carcinoma. Shortly thereafter she underwent Hbdlyi-J-Ebbr placement at the same day surgery center by Dr. Ordonez on August 28, 2016. She was seen at [facility] on September 06 to receive her cycle two of chemotherapy. She reports sick contact with her son. Shortly after chemotherapy, she developed cough, yellowish sputum production. She had chest discomfort when she coughed. Her appetite is poor from difusa. She developed fevers and came to the hospital for evaluation. She was seen by Dr. Phoenix Carreon. She had complained of rhinorrhea, cough, yellow sputum. She is undergoing chemotherapy, however, she was not neutropenic. Her white blood cell count was 4.1 because of Neulasta support. Troponin-I was negative for her chest pain. She was hyponatremic. Potassium was 2.9. Her liver functions were slightly elevated. Her son had been sick and goes to day care. 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 She was admitted and promptly started on antibiotic therapy. Blood cultures were obtained. Influenza A and B was negative. Imaging study was coordinated by Dr. Dacosta, suspecting respiratory source. There is minimal air space disease in the right lower lung. There is no evidence of central pulmonary emboli. The infiltrate in the right lower lung was not present when compared to previous CT PET scan the month prior. This is the suspected source of her infection. REVIEW OF SYSTEMS: She has decrease in appetite. She has subjective weight loss. She denies any headache, no vision changes. She is quite anxious about her pneumonia. Her father is coming in from [place]. Her 4 year-old son is well. She denies any nausea and vomiting. Chemotherapy is often associated with diarrhea. She has no diarrhea at present. She feels itchy after her antibiotic therapy. She denies any chest pain or shortness of breath at present. The rest of the review of systems is negative. PAST MEDICAL HISTORY: Locally advanced HER2/abel over expressing breast cancer. Right thyroid nodule, second primary papillary cancer, hypertension, difusa, chemotherapy induced anemia, right lung infiltrate. PAST SURGICAL HISTORY Right ear surgery, breast biopsy, , appendectomy. ALLERGIES: ALLERGIES TO HYDROCODONE, ACETAMINOPHEN AND OXYCODONE. CURRENT MEDICATIONS Include: 1. Diphenhydramine. 2. Vancomycin 3. Zithromax. 4. Low-molecular weight heparin Lovenox. 5. Bisacodyl p.r.n. FAMILY HISTORY Mother is alive and well. No family history of cancer. SOCIAL HISTORY She is , lives with her . 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 She is a never smoker. Denies any alcohol or illicit drug use. VITAL SIGNS: Temperature 99.3, heart rate is 110-120, blood pressure 116/62, saturation 96%. GENERAL: Mrs. Encinas is a well-developed, anxious appearing woman with alopecia. HEENT: Pupils equal, round, reactive to light and accommodation. Oropharynx is clear. No thrush. Neck: Supple. LUNGS: Clear to auscultation. Cardiovascular: Exam reveals tachycardia. Abdomen is benign. Lower extremities with no edema. Neurological: Exam is nonfocal. LABORATORY DATA Significant for hemoglobin of 11.2, platelet count 117. Potassium 2.9, on repeat is 3.2. IMAGING STUDIES: Described above. ASSESSMENT/PLAN Mrs. Encinas is a 40 year old woman with history of hypertension diagnosed with locally advanced HER2/abel over expressing breast cancer with right breast cancer. She is receiving perioperative chemotherapy, Taxotere, carboplatin, Herceptin, pertuzumab. Her course is complicated by febrile illness secondary to respiratory source of infection, right lower lung infiltrate. Antibiotic therapy is coordinated by infectious disease. Clinically she is improving. She remains tachycardiac. She is also quite anxious. Emotional support was provided. She has a supportive who is at bedside. Her son who is 4, is keeping her company as well. She complains mainly of decrease in taste. She is worried that she has decrease in her appetite. She has tolerated the chemotherapy well for the first cycle. She usually experiences diarrhea associated with the chemotherapy the second week. Will monitor closely for this. She received G-CSF support which we will keep her ANC above 1500. No specific therapy is required for the chemotherapy induced anemia. I expect that the platelet count will jyoti at the end of the week. Her course was further complicated by a second primary of papillary thyroid cancer. She is pending ENT evaluation definitive surgery at the time of her definitive surgery for her breast cancer. Recommend continued support. We are giving her perioperative chemotherapy with curative intent. She is responding well with decreasing size of the locally advanced tumor. Her questions were answered to her satisfaction. MD MICHELE Bonilla/MARCELL /7:18 PM /9:49 PM
[2016-09-12] VITALS (9 sets, daily range): BP systolic 103–119; BP diastolic 56–65; PULSE 96–106; RESP 16–20; TEMP 96.8–98.5; O2SAT 97–100
[2016-09-12] MEDS: PIPERACIL-TAZO 4.5 GM PREMIX 100 ML IV SCH ×4 (05:14→20:45)
[2016-09-12] MEDS: diphenhydrAMINE HCL 25 MG CAP PO PRN ×2 (05:18→18:33)
[2016-09-12] MEDS: VANCOMYCIN 1,000 MG/NS 250 ML IV SCH ×4 (05:53→19:09)
[2016-09-12 06:12] LABS: AUTOMATED NEUTROPHIL # 3.5 TH/MM3 (1.8-7.7); BASOPHIL # 0.1 TH/MM3 (0-0.2); BASOPHIL % 0.9 % (0.0-2.0); EOSINOPHIL % 0.4 % (0.0-4.0); HEMATOCRIT 30.3 % (35.0-46.0); HEMO FLAGS DIFF FINAL; LYMPH % 19.7 % (9.0-44.0); LYMPHOCYTE # 1.1 TH/MM3 (1.0-4.8); MEAN CELL VOLUME 84.5 FL (80.0-100.0); MEAN CORPUSCULAR HEMOGLOBIN 28.9 PG (27.0-34.0); MEAN CORPUSCULAR HGB CONC 34.2 % (32.0-36.0); MONO % 18.4 % (0.0-8.0); NEUT % 60.6 % (16.0-70.0); PLATELET COUNT 104 TH/MM3 (150-450); RED BLOOD COUNT 3.58 MIL/MM3 (4.00-5.30); RED CELL DISTRIBUTION WIDTH 13.1 % (11.6-17.2); WHITE BLOOD COUNT 5.8 TH/MM3 (4.0-11.0)
[2016-09-12 06:51] LABS: ALKALINE PHOSPHATASE 166 U/L (45-117); ALT (GPT) 120 U/L (10-53); ANION GAP 9 MEQ/L (5-15); AST (GOT) 63 U/L (15-37); BICARBONATE 28.2 MEQ/L (21.0-32.0); BLOOD UREA NITROGEN 10 MG/DL (7-18); CHLORIDE 98 MEQ/L (98-107); GLOMERULAR FILTRATION RATE 80 ML/MIN (>89); SODIUM (NA) 135 MEQ/L (136-145); TOTAL BILIRUBIN ADULT 0.7 MG/DL (0.2-1.0)
[2016-09-12] MEDS: ENOXAPARIN SODIUM 40 MG/0.4 ML SYRINGE SQ SCH (08:42)
[2016-09-12] MEDS: AZITHROMYCIN 250 MG TAB PO SCH (08:43)
[2016-09-12] MEDS: DOCUSATE SODIUM 100 MG CAP PO SCH ×2 (08:43→20:44)
[2016-09-12] MEDS: SODIUM CHLORIDE 0.9% FLUSH 5 ML FLUSH FLUSH SCH ×2 (08:43→20:46)
--- NOTE | 2016-09-12 10:36 | PD.ONC.PN ---
Subjective Subjective Remarks Afebrile overnight. Patient is eating papaya that her mother brought her this AM. She denies pain. She states she feels much less tired today. She still feels she has mucous to cough up but has been unable to do so. Objective Data Date Time Temp Pulse Resp B/P Pulse Ox O2 Delivery O2 Flow Rate FiO2 09/12/16 08:55 Room Air 09/12/16 08:55 97 09/12/16 08:00 98.1 96 18 111/59 98 09/12/16 04:00 98.1 98 20 105/59 97 09/12/16 00:00 98.5 104 20 107/57 98 09/11/16 20:00 Room Air 09/11/16 20:00 115 09/11/16 20:00 98.9 119 20 107/57 97 09/11/16 19:26 124 09/11/16 16:40 99.3 126 19 116/62 96 09/11/16 13:50 110 18 98/55 98 Room Air Result Diagram: 09/12/16 0513 09/12/16 0513 Laboratory Results Laboratory Tests Test 09/11/16 09/11/16 09/12/16 11:20 17:15 05:13 Urine Color YELLOW Urine Turbidity HAZY Urine pH 6.0 Urine Specific [place] 1.014 Urine Protein 30 mg/dL Urine Glucose (UA) NEG mg/dL Urine Ketones NEG mg/dL Urine Occult Blood MOD Urine Nitrite NEG Urine Bilirubin NEG Urine Urobilinogen LESS THAN 2.0 MG/DL Urine Leukocyte Esterase NEG Urine RBC 20 /hpf Urine WBC 1 /hpf Urine Squamous Epithelial <1 /hpf Cells Urine Bacteria FEW /hpf Urine Mucus FEW /lpf Microscopic Urinalysis Comment CATH-CULTURE IND Potassium Level 3.2 MEQ/L 3.0 MEQ/L Troponin I LESS THAN 0.02 NG/ML White Blood Count 5.8 TH/MM3 Red Blood Count 3.58 MIL/MM3 Hemoglobin 10.4 GM/DL Hematocrit 30.3 % Mean Corpuscular Volume 84.5 FL Mean Corpuscular Hemoglobin 28.9 PG Mean Corpuscular Hemoglobin 34.2 % Concent Red Cell Distribution Width 13.1 % Platelet Count 104 TH/MM3 Mean Platelet Volume 9.4 FL Neutrophils (%) (Auto) 60.6 % Lymphocytes (%) (Auto) 19.7 % Monocytes (%) (Auto) 18.4 % Eosinophils (%) (Auto) 0.4 % Basophils (%) (Auto) 0.9 % Neutrophils # (Auto) 3.5 TH/MM3 Lymphocytes # (Auto) 1.1 TH/MM3 Monocytes # (Auto) 1.1 TH/MM3 Eosinophils # (Auto) 0.0 TH/MM3 Basophils # (Auto) 0.1 TH/MM3 CBC Comment DIFF FINAL Differential Comment Sodium Level 135 MEQ/L Chloride Level 98 MEQ/L Carbon Dioxide Level 28.2 MEQ/L Anion Gap 9 MEQ/L Blood Urea Nitrogen 10 MG/DL Creatinine 0.80 MG/DL Estimat Glomerular Filtration 80 ML/MIN Rate Random Glucose 95 MG/DL Calcium Level 7.9 MG/DL Magnesium Level 2.1 MG/DL Total Bilirubin 0.7 MG/DL Aspartate Amino Transf 63 U/L (AST/SGOT) Alanine Aminotransferase 120 U/L (ALT/SGPT) Alkaline Phosphatase 166 U/L Total Protein 7.2 GM/DL Albumin 3.1 GM/DL Culture Results Microbiology Date/Time Procedure Status Source Growth 09/11/16 03:40 Aerobic Blood Culture Received Blood Peripheral Pending 09/11/16 03:40 Anaerobic Blood Culture Received Blood Peripheral Pending 09/11/16 03:50 Aerobic Blood Culture Received Blood Peripheral Pending 09/11/16 03:50 Anaerobic Blood Culture Received Blood Peripheral Pending 09/11/16 04:00 Influenza Types A,B Antigen (JORGE) - Final Complete Nasal Aspirate NEGATIVE FOR FLU A AND B ANTIGEN.... 09/11/16 11:20 Urine Culture Received Urine Catheterized Urine Pending 09/11/16 11:20 Legionella Antigen - Final Complete Urine Clean Catch PRESUMPTIVE NEGATIVE FOR LEGIONELLA P... 09/11/16 11:20 Streptococcus pneumoniae Antigen (M - Final Complete Urine Clean Catch PRESUMPTIVE NEGATIVE FOR STREPTOCOCCU... 09/12/16 05:00 Gram Stain Received Sputum Expectorated Sputum Pending 09/12/16 05:00 Sputum Culture Received Sputum Expectorated Sputum Pending Administered Medications Medications (Trade) Dose Ordered Sig/Carlitos Route PRN Reason Start Time Stop Time Status Last Admin Dose Admin IV Flush (NS Flush) 2 ml BID FLUSH 09/11/16 09:00 09/12/16 08:43 Docusate Sodium (Colace) 100 mg Q12HR PO 09/11/16 07:00 09/11/16 08:04 Enoxaparin Sodium 40 mg 40 mg Q24H SQ 09/11/16 08:00 09/12/16 08:42 Piperacillin Sod/ Tazobactam Sod (Zosyn 4.5 Gm Premix) 100 ml @ 200 mls/hr Q6H IV 09/11/16 16:00 09/12/16 09:46 Azithromycin 500 mg 500 mg DAILY PO 09/11/16 16:00 09/12/16 08:43 Vancomycin HCl/ Sodium Chloride (Vancomycin Inj/ NS 250 ml Inj) 250 ml @ 250 mls/hr Q12H IV 09/11/16 18:00 09/12/16 05:53 Diphenhydramine HCl (Benadryl) 25 mg UNSCH PRN PO SEE LABEL COMMENTS 09/11/16 19:30 09/12/16 05:18 Objective Remarks GENERAL: Young woman, sitting up in bed, with mother at bedside. SKIN: Warm and dry. HEAD: Normocephalic. EYES: No injection or drainage. NECK: Supple, trachea midline. CARDIOVASCULAR: Regular rate and rhythm RESPIRATORY: Breath sounds equal bilaterally. No accessory muscle use. GASTROINTESTINAL: Abdomen soft, non-tender, nondistended. EXTREMITIES: No cyanosis NEUROLOGICAL: No obvious focal deficit. Awake, alert, and oriented x3. Assessment/Plan Problem List: (1) Breast cancer Status: Acute Plan: --locally advanced HER2/abel over expressing right breast cancer. --Initial CT PET scan staging shows no evidence of metastatic disease. --was started on neoadjuvant chemotherapy with Taxotere, carboplatin, Herceptin and Pertuzumub. --usually experiences diarrhea associated with the chemotherapy the second week- -> Will monitor closely for this. --received G-CSF support which we will keep her ANC above 1500. --We are giving her perioperative chemotherapy with curative intent. She is responding well with decreasing size of the locally advanced tumor. (2) Papillary thyroid carcinoma Status: Acute Plan: --right thyroid nodule found during course of w/u for breast cancer --underwent right thyroid FNA on 08/23/16 that shows second primary, papillary thyroid carcinoma. --pending ENT evaluation for definitive surgery at the time of her definitive surgery for her breast cancer. (3) Antineoplastic chemotherapy induced anemia Status: Acute Plan: --No specific therapy required (4) Chemotherapy-induced thrombocytopenia Status: Acute Plan: --expect that the platelet count will jyoti at the end of the week. Assessment 40y/o female with HER2/abel over expressing breast cancer admitted with febrile illness secondary to right lung infiltrate. Plan 1. monitor CBC 2. continue antibiotics per ID 3. continue supportive care. Attending Statement Discussed above. Continue to follow cultures, abx per ID, jyoti of blood counts expected. Problem Qualifiers (1) Breast cancer: Qualified Code: C50.511 - Malignant neoplasm of lower-outer quadrant of right female breast Yesy Austin Sep 12, 2016 10:36 Graciela Galeana MD Sep 12, 2016 23:21
--- NOTE | 2016-09-12 12:48 | HHI.IDPN ---
Subjective Subjective Remarks Notes reviewed Temps ok CT with RML and L base small infiltrates C/S negative so far US with gallstones, no findings of cholecystitis LFT slightly better Feels a little better Antibiotics Zithromax Vanco Zosyn Lines Port Past Medical History Hypertension Thyroid nodule, papillary CA Right breast cancer on chemo Carpal tunnel surgery One History of gallstones Past Surgical History Right ear surgery X 2 Right breast biopsy X 2 section Appendectomy Port placement Allergies: Coded Allergies: Hydrocodone (Verified Allergy, Severe, Shortness of Breath, 09/11/16) Oxycodone (Verified Allergy, Severe, Shortness of Breath, 09/11/16) Methocarbamol (Verified Adverse Reaction, Severe, PRESSURE ON CHEST, ) Objective . Vital Signs Date Time Temp Pulse Resp B/P Pulse Ox O2 Delivery O2 Flow Rate FiO2 09/12/16 11:22 98 21 09/12/16 08:55 Room Air 09/12/16 08:55 97 09/12/16 08:00 98.1 96 18 111/59 98 09/12/16 04:00 98.1 98 20 105/59 97 09/12/16 00:00 98.5 104 20 107/57 98 09/11/16 20:00 Room Air 09/11/16 20:00 115 09/11/16 20:00 98.9 119 20 107/57 97 09/11/16 19:26 124 09/11/16 16:40 99.3 126 19 116/62 96 09/11/16 13:50 110 18 98/55 98 Room Air 09/11/16 09/11/16 09/12/16 15:00 23:00 07:00 Intake Total 240 ml 240 ml Balance 240 ml 240 ml Intake Oral 240 ml 240 ml # Voids 3 2 # Bowel Movements 3 . Laboratory Tests Test 09/11/16 09/12/16 03:50 05:13 White Blood Count 4.1 TH/MM3 5.8 TH/MM3 Red Blood Count 3.82 MIL/MM3 3.58 MIL/MM3 Hemoglobin 11.2 GM/DL 10.4 GM/DL Hematocrit 31.8 % 30.3 % Mean Corpuscular Volume 83.2 FL 84.5 FL Mean Corpuscular Hemoglobin 29.4 PG 28.9 PG Mean Corpuscular Hemoglobin 35.4 % 34.2 % Concent Red Cell Distribution Width 13.3 % 13.1 % Platelet Count 117 TH/MM3 104 TH/MM3 Mean Platelet Volume 9.3 FL 9.4 FL Neutrophils (%) (Auto) 61.4 % 60.6 % Lymphocytes (%) (Auto) 26.6 % 19.7 % Monocytes (%) (Auto) 10.1 % 18.4 % Eosinophils (%) (Auto) 0.9 % 0.4 % Basophils (%) (Auto) 1.0 % 0.9 % Neutrophils # (Auto) 2.5 TH/MM3 3.5 TH/MM3 Lymphocytes # (Auto) 1.1 TH/MM3 1.1 TH/MM3 Monocytes # (Auto) 0.4 TH/MM3 1.1 TH/MM3 Eosinophils # (Auto) 0.0 TH/MM3 0.0 TH/MM3 Basophils # (Auto) 0.0 TH/MM3 0.1 TH/MM3 CBC Comment AUTO DIFF DIFF FINAL Differential Total Cells 100 Counted Neutrophils % (Manual) 65 % Band Neutrophils % 9 % Lymphocytes % 16 % Monocytes % 9 % Neutrophils # (Manual) 3.1 TH/MM3 Metamyelocytes 1 % Differential Comment FINAL DIFF MANUAL Dohle Bodies PRESENT Platelet Estimate LOW Platelet Morphology Comment NORMAL Red Cell Morphology Comment NORMAL Laboratory Tests Test 09/11/16 09/11/16 09/11/16 09/12/16 03:50 09:55 17:15 05:13 Sodium Level 132 MEQ/L 135 MEQ/L Potassium Level 2.9 MEQ/L 3.2 MEQ/L 3.0 MEQ/L Chloride Level 96 MEQ/L 98 MEQ/L Carbon Dioxide Level 26.6 MEQ/L 28.2 MEQ/L Anion Gap 9 MEQ/L 9 MEQ/L Blood Urea Nitrogen 17 MG/DL 10 MG/DL Creatinine 0.98 MG/DL 0.80 MG/DL Estimat Glomerular Filtration 64 ML/MIN 80 ML/MIN Rate Random Glucose 110 MG/DL 95 MG/DL Hemoglobin A1c 5.7 % Lactic Acid Level 1.5 mmol/L Calcium Level 8.6 MG/DL 7.9 MG/DL Total Bilirubin 0.8 MG/DL 0.7 MG/DL Aspartate Amino Transf 116 U/L 63 U/L (AST/SGOT) Alanine Aminotransferase 139 U/L 120 U/L (ALT/SGPT) Alkaline Phosphatase 151 U/L 166 U/L Total Protein 7.8 GM/DL 7.2 GM/DL Albumin 3.7 GM/DL 3.1 GM/DL Troponin I LESS THAN 0.02 LESS THAN 0.02 NG/ML NG/ML Magnesium Level 2.1 MG/DL Microbiology Date/Time Procedure Status Source Growth 09/11/16 03:40 Aerobic Blood Culture - Preliminary Resulted Blood Peripheral NO GROWTH IN 1 DAY 09/11/16 03:40 Anaerobic Blood Culture - Preliminary Resulted Blood Peripheral NO GROWTH IN 1 DAY 09/11/16 03:50 Aerobic Blood Culture - Preliminary Resulted Blood Peripheral NO GROWTH IN 1 DAY 09/11/16 03:50 Anaerobic Blood Culture - Preliminary Resulted Blood Peripheral NO GROWTH IN 1 DAY 09/11/16 04:00 Influenza Types A,B Antigen (JORGE) - Final Complete Nasal Aspirate NEGATIVE FOR FLU A AND B ANTIGEN.... 09/11/16 11:20 Urine Culture - Preliminary Resulted Urine Catheterized Urine NO GROWTH IN 24 HOURS. 09/11/16 11:20 Legionella Antigen - Final Complete Urine Clean Catch PRESUMPTIVE NEGATIVE FOR LEGIONELLA P... 09/11/16 11:20 Streptococcus pneumoniae Antigen (M - Final Complete Urine Clean Catch PRESUMPTIVE NEGATIVE FOR STREPTOCOCCU... 09/12/16 05:00 Gram Stain Received Sputum Expectorated Sputum Pending 09/12/16 05:00 Sputum Culture Received Sputum Expectorated Sputum Pending Imaging Last Impressions Chest X-Ray 09/11/16 0303 Signed Impressions: Service Date/Time: Sunday, September 11, 2016 01:24 - CONCLUSION: No acute disease. Adriano Manley MD Gall Bladder Ultrasound 09/11/16 0000 Signed Impressions: Service Date/Time: Sunday, September 11, 2016 18:09 - CONCLUSION: 1. Gallstones in gallbladder. No biliary ductal dilatation. Small cyst right lobe liver. No free fluid. Bennie Ivy MD Chest CT 09/11/16 0000 Signed Impressions: Service Date/Time: Sunday, September 11, 2016 16:15 - CONCLUSION: 1. Minimal air-space disease as described above. 2. There is no evidence for central pulmonary emboli. 3. Gallstones in a small contracted gallbladder. Lopez Spangler MD FACR Physical Exam GENERAL: awake and alert, NAD SKIN: Warm and dry, no generalized rash. HEENT: [place] conjunctivae. No scleral icterus. Moist oral mucosa. No oral thrush. NECK: Trachea midline. No JVD or lymphadenopathy. Supple, nontender, no meningeal signs. CARDIOVASCULAR: Regular rate and rhythm without murmurs, gallops, or rubs. RESPIRATORY: Clear to auscultation. Breath sounds equal bilaterally. No wheezes , rales, or rhonchi. Decreased vocal fremitus R base. Port L upper chest, accessed, with no evidence of infection GASTROINTESTINAL: Abdomen soft, non-tender, nondistended. Bowel sounds are present and normoactive. No hepato-splenomegaly, or palpable masses. No guarding. MUSCULOSKELETAL: Extremities without clubbing, cyanosis, or edema. No joint tenderness, effusion, or edema noted. No calf tenderness. Negative Homans sign bilaterally. NEUROLOGICAL: Non-focal. PSYCH: Calm and cooperative LINE: Port without any evidence of infection Assessment & Plan Remarks IMPRESSION Sepsis on admission, symptoms all point to respiratory, possibly early PNA, - CXR clear, but she is congested and has pleuritic pain when she coughs - CT with small infiltrates RML and L base Possible early PNA - ?atypical has some ear pain and elevated LFT R breast CA - undergoing chemo Elevated LFT, exam is benign, ?due to sepsis - LFT slightly better RECOMMENDATION Continue current Abx : Zosyn, vanco , and Zithromax Monitor temps Follow counts Monitor progress Marii Dacosta MD Sep 12, 2016 12:48
--- NOTE | 2016-09-12 15:46 | HHI.PR ---
Subjective Remarks Feeling better today Objective Vital Signs Date Time Temp Pulse Resp B/P Pulse Ox O2 Delivery O2 Flow Rate FiO2 09/12/16 12:00 98.3 96 18 105/57 97 09/12/16 11:22 98 21 09/12/16 08:55 Room Air 09/12/16 08:55 97 09/12/16 08:00 98.1 96 18 111/59 98 09/12/16 04:00 98.1 98 20 105/59 97 09/12/16 00:00 98.5 104 20 107/57 98 09/11/16 20:00 Room Air 09/11/16 20:00 115 09/11/16 20:00 98.9 119 20 107/57 97 09/11/16 19:26 124 09/11/16 16:40 99.3 126 19 116/62 96 I/O 09/11/16 09/11/16 09/11/16 09/12/16 09/12/16 09/12/16 07:00 15:00 23:00 07:00 15:00 23:00 Intake Total 240 ml 240 ml Balance 240 ml 240 ml Intake Oral 240 ml 240 ml # Voids 3 2 # Bowel Movements 3 Result Diagram: 09/12/16 0513 09/12/16 0513 Imaging Last Impressions Chest X-Ray 09/11/16 0303 Signed Impressions: Service Date/Time: Sunday, September 11, 2016 01:24 - CONCLUSION: No acute disease. Adriano Manley MD Gall Bladder Ultrasound 09/11/16 0000 Signed Impressions: Service Date/Time: Sunday, September 11, 2016 18:09 - CONCLUSION: 1. Gallstones in gallbladder. No biliary ductal dilatation. Small cyst right lobe liver. No free fluid. Bennie Ivy MD Chest CT 09/11/16 0000 Signed Impressions: Service Date/Time: Sunday, September 11, 2016 16:15 - CONCLUSION: 1. Minimal air-space disease as described above. 2. There is no evidence for central pulmonary emboli. 3. Gallstones in a small contracted gallbladder. Lopez Spangler MD FACR Objective Remarks GENERAL: Well-nourished, well-developed patient. SKIN: Warm and dry. HEAD: Normocephalic. EYES: No scleral icterus. No injection or drainage. NECK: Supple, trachea midline. No JVD or lymphadenopathy. CARDIOVASCULAR: Regular rate and rhythm without murmurs, gallops, or rubs. RESPIRATORY: Breath sounds equal bilaterally. No accessory muscle use. Occ rhonchi, pleuritic chest discomfort with cough/deep insp. GASTROINTESTINAL: Abdomen soft, non-tender, nondistended. EXTREMITIES: No cyanosis, or edema. NEUROLOGICAL: Awake, alert, and oriented x 3. Non-focal. Medications and IVs Current Medications Medications (Trade) Dose Ordered Sig/Carlitos Route Start Time Stop Time Status Last Admin (NS Flush) 2 ml UNSCH PRN FLUSH 09/11/16 07:00 (NS Flush) 2 ml BID FLUSH 09/11/16 09:00 09/12/16 08:43 (Tylenol) 650 mg Q4H PRN PO 09/11/16 07:00 (Zofran Inj) 4 mg Q6H PRN IVP 09/11/16 07:00 (Dulcolax Supp) 10 mg DAILY PRN AK 09/11/16 07:00 (Colace) 100 mg Q12HR PO 09/11/16 07:00 09/11/16 08:04 (Narcan Inj) 0.4 mg UNSCH PRN IV 09/11/16 07:00 Enoxaparin Sodium 40 mg 40 mg Q24H SQ 09/11/16 08:00 09/12/16 08:42 Piperacillin Sod/ Tazobactam Sod 100 ml @ 200 mls/hr Q6H IV 09/11/16 16:00 09/12/16 09:46 (Vancomycin Consult Pharmacy) 0 ml @ 0 mls/hr UNSCH OTHER 09/11/16 14:45 Azithromycin 500 mg 500 mg DAILY PO 09/11/16 16:00 09/12/16 08:43 (Vancomycin Inj/ NS 250 ml Inj) 250 ml @ 250 mls/hr Q12H IV 09/11/16 18:00 09/12/16 05:53 Miscellaneous Information SPECIFIC LAB TO BE DRAWN:VANCOMYCIN TROUGH DATE TO... ONCE ONCE XX 09/13/16 05:45 09/13/16 05:46 (Benadryl) 25 mg UNSCH PRN PO 09/11/16 19:30 09/12/16 05:18 Assessment and Plan Problem List: (1) Thyroid mass of unclear etiology Status: Chronic Plan: Followed by Dr. Galeana. (2) Hypokalemia Status: Acute Plan: Will give 60 meq today, then 30 BID with daily lab checks. (3) Sepsis Status: Acute Plan: Lactate negative, blood cultures drawn, ID consult appreciated. Feeling better today. (4) Abnormal LFTs (liver function tests) Status: Acute Plan: May be due to chemotherapy. Dr. Galeana following (5) Breast cancer Status: Acute Plan: Dr. Galeana consult appreciated. Problem Qualifiers (1) Sepsis: Qualified Code: A41.9 - Sepsis, due to unspecified organism (2) Breast cancer: Qualified Code: C50.511 - Malignant neoplasm of lower-outer quadrant of right female breast Carmen Calvillo Sep 12, 2016 15:46
[2016-09-12] MEDS: POTASSIUM CHLORIDE 10 MEQ CONTROLLED RELEASE TAB PO SCH ×2 (15:51→20:43)
[2016-09-12] MEDS ORDERED: Infusaport/Implanted VAD PRN NS Lock Flush IVF (17:30)
[2016-09-12] MEDS: HYDROCORTISONE ACETATE 25 MG SUPP RECTAL SCH (20:45)
[2016-09-13] VITALS: BP 101/58; PULSE 93; RESP 18; TEMP 97.9; O2SAT 100
[2016-09-13 04:00] VITALS: BP 103/57; PULSE 93; RESP 16; TEMP 97.4; O2SAT 98
[2016-09-13] MEDS: PIPERACIL-TAZO 4.5 GM PREMIX 100 ML IV SCH ×4 (04:35→16:00)
[2016-09-13] MEDS: diphenhydrAMINE HCL 25 MG CAP PO PRN ×3 (04:44→22:38)
[2016-09-13] MEDS: VANCOMYCIN 1,000 MG/NS 250 ML IV SCH ×8 (05:13→22:00)
[2016-09-13] MEDS ORDERED: PHARMACY ORDERED LAB XX ONE (05:45)
[2016-09-13 06:02] LABS: BICARBONATE 25.8 MEQ/L (21.0-32.0); POTASSIUM 3.7 MEQ/L (3.5-5.1)
[2016-09-13 06:03] LABS: VANCOMYCIN TROUGH 9.5 MCG/ML (5.0-10.0)
[2016-09-13 08:22] VITALS: BP 110/71; PULSE 96; RESP 20; TEMP 98.1; O2SAT 98
[2016-09-13] MEDS: DOCUSATE SODIUM 100 MG CAP PO SCH ×2 (09:00→22:27)
[2016-09-13 10:30] LABS: INDIRECT BILIRUBIN 0.1 MG/DL (0.0-0.8); TOTAL BILIRUBIN ADULT 0.2 MG/DL (0.2-1.0)
--- NOTE | 2016-09-13 10:54 | PD.ONC.PN ---
Subjective Subjective Remarks Afebrile overnight. Patient resting comfortably. and father at bedside. She states she had a hard time sleeping last night. She continues to have pain in her chest and when she coughs, some phlegm comes up. Has not required supplemental O2. + diarrhea overnight. Objective Data Date Time Temp Pulse Resp B/P Pulse Ox O2 Delivery O2 Flow Rate FiO2 09/13/16 08:22 98.1 96 20 110/71 98 09/13/16 04:00 97.4 93 16 103/57 98 09/13/16 00:00 97.9 93 18 101/58 100 09/12/16 20:12 100 09/12/16 20:00 97.7 97 16 103/56 100 09/12/16 20:00 Room Air 09/12/16 16:00 96.8 106 20 119/65 100 09/12/16 12:00 98.3 96 18 105/57 97 09/12/16 11:22 98 21 09/13/16 09/13/16 09/13/16 07:00 15:00 23:00 Intake Total 120 ml Balance 120 ml Result Diagram: 09/12/16 0513 09/13/16 0449 Laboratory Results Laboratory Tests Test 09/13/16 04:49 Sodium Level 140 MEQ/L Potassium Level 3.7 MEQ/L Chloride Level 107 MEQ/L Carbon Dioxide Level 25.8 MEQ/L Anion Gap 7 MEQ/L Blood Urea Nitrogen 7 MG/DL Creatinine 0.72 MG/DL Estimat Glomerular Filtration 91 ML/MIN Rate Random Glucose 109 MG/DL Calcium Level 8.0 MG/DL Total Bilirubin 0.2 MG/DL Direct Bilirubin 0.1 MG/DL Indirect Bilirubin 0.1 MG/DL Aspartate Amino Transf 45 U/L (AST/SGOT) Alanine Aminotransferase 104 U/L (ALT/SGPT) Alkaline Phosphatase 145 U/L Total Protein 7.2 GM/DL Albumin 2.9 GM/DL Vancomycin Level Trough 9.5 MCG/ML Culture Results Microbiology Date/Time Procedure Status Source Growth 09/11/16 03:40 Aerobic Blood Culture - Preliminary Resulted Blood Peripheral NO GROWTH IN 1 DAY 09/11/16 03:40 Anaerobic Blood Culture - Preliminary Resulted Blood Peripheral NO GROWTH IN 1 DAY 09/11/16 03:50 Aerobic Blood Culture - Preliminary Resulted Blood Peripheral NO GROWTH IN 1 DAY 09/11/16 03:50 Anaerobic Blood Culture - Preliminary Resulted Blood Peripheral NO GROWTH IN 1 DAY 09/11/16 04:00 Influenza Types A,B Antigen (JORGE) - Final Complete Nasal Aspirate NEGATIVE FOR FLU A AND B ANTIGEN.... 09/11/16 11:20 Urine Culture - Final Complete Urine Catheterized Urine NO GROWTH IN 48 HOURS. 09/11/16 11:20 Legionella Antigen - Final Complete Urine Clean Catch PRESUMPTIVE NEGATIVE FOR LEGIONELLA P... 09/11/16 11:20 Streptococcus pneumoniae Antigen (M - Final Complete Urine Clean Catch PRESUMPTIVE NEGATIVE FOR STREPTOCOCCU... 09/12/16 05:00 Gram Stain - Final Resulted Sputum Expectorated Sputum 09/12/16 05:00 Sputum Culture Resulted Sputum Expectorated Sputum Pending Administered Medications Medications (Trade) Dose Ordered Sig/Carlitos Route PRN Reason Start Time Stop Time Status Last Admin Dose Admin IV Flush (NS Flush) 2 ml BID FLUSH 09/11/16 09:00 09/12/16 20:46 Docusate Sodium (Colace) 100 mg Q12HR PO 09/11/16 07:00 09/11/16 08:04 Enoxaparin Sodium 40 mg 40 mg Q24H SQ 09/11/16 08:00 09/12/16 08:42 Piperacillin Sod/ Tazobactam Sod (Zosyn 4.5 Gm Premix) 100 ml @ 200 mls/hr Q6H IV 09/11/16 16:00 09/13/16 04:35 Azithromycin (Zithromax) 500 mg DAILY PO 09/11/16 16:00 09/12/16 08:43 Diphenhydramine HCl (Benadryl) 25 mg UNSCH PRN PO SEE LABEL COMMENTS 09/11/16 19:30 09/13/16 04:44 Potassium Chloride (KCl) 30 meq Q12HR PO 09/12/16 15:45 09/12/16 20:43 Hydrocortisone Acetate (Hemorrhoidal Hc Supp) 25 mg BID RECTAL 09/12/16 21:00 09/12/16 20:45 Objective Remarks GENERAL: Young woman, sitting up in bed, with mother at bedside. SKIN: Warm and dry. HEAD: Normocephalic. EYES: No injection or drainage. NECK: Supple, trachea midline. CARDIOVASCULAR: +S1/S2 RESPIRATORY: diminished at left base. anterior breen clear. GASTROINTESTINAL: Abdomen soft, non-tender, nondistended. EXTREMITIES: No cyanosis NEUROLOGICAL: awake and alert, normal speech. moving all extremities. Assessment/Plan Problem List: (1) Pneumonia Status: Acute Plan: --ID following --on multiple antibiotics --BC no growth --afebrile (2) Breast cancer Status: Acute Plan: --locally advanced HER2/abel over expressing right breast cancer. --Initial CT PET scan staging shows no evidence of metastatic disease. --was started on neoadjuvant chemotherapy with Taxotere, carboplatin, Herceptin and Pertuzumub. --usually experiences diarrhea associated with the chemotherapy the second week- -> Will monitor closely for this. --received G-CSF support which we will keep her ANC above 1500. --We are giving her perioperative chemotherapy with curative intent. She is responding well with decreasing size of the locally advanced tumor. (3) Papillary thyroid carcinoma Status: Acute Plan: --right thyroid nodule found during course of w/u for breast cancer --underwent right thyroid FNA on 08/23/16 that shows second primary, papillary thyroid carcinoma. --pending ENT evaluation for definitive surgery at the time of her definitive surgery for her breast cancer. (4) Antineoplastic chemotherapy induced anemia Status: Acute Plan: --No specific therapy required (5) Chemotherapy-induced thrombocytopenia Status: Acute Plan: --expect that the platelet count will jyoti at the end of the week. Assessment 40y/o female with HER2/abel over expressing breast cancer admitted with febrile illness secondary to right lung infiltrate. Plan 1. patient can be discharged once cleared by ID and home antibiotic recommendations made. 2. continue DVT prophylaxis 3. supportive care. Attending Statement The exam, history, and the medical decision-making described in the above note were completed with the assistance of the mid-level provider. I reviewed and agree with the findings presented. I attest that I had a [id number] encounter with the patient on the same day, and personally performed and documented my assessment and findings in the medical record. Clinically better but cough worse, no sputum production, afebrile. Good spirits, father is here from [place]. Friends sent her Reeves for get well. Discussed plan to continue abx, per ID. Monitor for diarrhea, diarrhea expected from Pertuzumab as well. Follow. Problem Qualifiers (1) Breast cancer: Qualified Code: C50.511 - Malignant neoplasm of lower-outer quadrant of right female breast Yesy Austin Sep 13, 2016 10:54 Graciela Galeana MD Sep 13, 2016 19:17
[2016-09-13 12:16] VITALS: BP 115/65; PULSE 103; RESP 19; TEMP 97.9; O2SAT 99
[2016-09-13] MEDS: ENOXAPARIN SODIUM 40 MG/0.4 ML SYRINGE SQ SCH (12:21)
[2016-09-13] MEDS: POTASSIUM CHLORIDE 10 MEQ CONTROLLED RELEASE TAB PO SCH ×2 (12:22→22:28)
[2016-09-13] MEDS: SODIUM CHLORIDE 0.9% FLUSH 5 ML FLUSH FLUSH SCH ×2 (12:22→22:28)
[2016-09-13] MEDS: AZITHROMYCIN 250 MG TAB PO SCH (12:22)
[2016-09-13] MEDS: LACTOBACILLUS ACIDOPHILUS 1 GM PACKET PO SCH ×3 (12:22→18:02)
[2016-09-13] MEDS: HYDROCORTISONE ACETATE 25 MG SUPP RECTAL SCH ×2 (12:23→22:27)
--- NOTE | 2016-09-13 15:55 | HHI.PR ---
Subjective Remarks feeling much better gi upset remains will continue probiotic and add fiber Objective Vital Signs Date Time Temp Pulse Resp B/P Pulse Ox O2 Delivery O2 Flow Rate FiO2 09/13/16 12:16 97.9 103 19 115/65 99 09/13/16 08:22 98.1 96 20 110/71 98 09/13/16 04:00 97.4 93 16 103/57 98 09/13/16 00:00 97.9 93 18 101/58 100 09/12/16 20:12 100 09/12/16 20:00 97.7 97 16 103/56 100 09/12/16 20:00 Room Air 09/12/16 16:00 96.8 106 20 119/65 100 I/O 09/12/16 09/12/16 09/12/16 09/13/16 09/13/16 09/13/16 07:00 15:00 23:00 07:00 15:00 23:00 Intake Total 240 ml 840 ml 120 ml 120 ml Balance 240 ml 840 ml 120 ml 120 ml Intake Oral 240 ml 840 ml 120 ml 120 ml # Voids 2 5 4 2 # Bowel Movements 5 4 2 Result Diagram: 09/12/16 0513 09/13/16 0449 Assessment and Plan Problem List: (1) Pneumonia Status: Acute (2) Diarrhea Status: Acute Discussed Condition With patient RockwellEriberto Ermias HUERTA Sep 13, 2016 15:55
--- NOTE | 2016-09-13 16:05 | HHI.IDPN ---
Subjective Subjective Remarks Notes reviewed Temps ok Coughing a lot, C/O R sided chest pain when she coughs Having diarrhea, no abdominal pain CT with RML and L base small infiltrates C/S negative so far US with gallstones, no findings of cholecystitis LFT slightly better Antibiotics Zithromax Vanco Zosyn Lines Port Past Medical History Hypertension Thyroid nodule, papillary CA Right breast cancer on chemo Carpal tunnel surgery One History of gallstones Past Surgical History Right ear surgery X 2 Right breast biopsy X 2 section Appendectomy Port placement Allergies: Coded Allergies: Hydrocodone (Verified Allergy, Severe, Shortness of Breath, 09/11/16) Oxycodone (Verified Allergy, Severe, Shortness of Breath, 09/11/16) Methocarbamol (Verified Adverse Reaction, Severe, PRESSURE ON CHEST, ) Objective . Vital Signs Date Time Temp Pulse Resp B/P Pulse Ox O2 Delivery O2 Flow Rate FiO2 09/13/16 12:16 97.9 103 19 115/65 99 09/13/16 08:22 98.1 96 20 110/71 98 09/13/16 04:00 97.4 93 16 103/57 98 09/13/16 00:00 97.9 93 18 101/58 100 09/12/16 20:12 100 09/12/16 20:00 97.7 97 16 103/56 100 09/12/16 20:00 Room Air 09/12/16 09/12/16 09/13/16 15:00 23:00 07:00 Intake Total 840 ml 120 ml 120 ml Balance 840 ml 120 ml 120 ml Intake Oral 840 ml 120 ml 120 ml # Voids 5 4 2 # Bowel Movements 5 4 2 . Laboratory Tests Test 09/12/16 05:13 White Blood Count 5.8 TH/MM3 Red Blood Count 3.58 MIL/MM3 Hemoglobin 10.4 GM/DL Hematocrit 30.3 % Mean Corpuscular Volume 84.5 FL Mean Corpuscular Hemoglobin 28.9 PG Mean Corpuscular Hemoglobin 34.2 % Concent Red Cell Distribution Width 13.1 % Platelet Count 104 TH/MM3 Mean Platelet Volume 9.4 FL Neutrophils (%) (Auto) 60.6 % Lymphocytes (%) (Auto) 19.7 % Monocytes (%) (Auto) 18.4 % Eosinophils (%) (Auto) 0.4 % Basophils (%) (Auto) 0.9 % Neutrophils # (Auto) 3.5 TH/MM3 Lymphocytes # (Auto) 1.1 TH/MM3 Monocytes # (Auto) 1.1 TH/MM3 Eosinophils # (Auto) 0.0 TH/MM3 Basophils # (Auto) 0.1 TH/MM3 CBC Comment DIFF FINAL Differential Comment Laboratory Tests Test 09/11/16 09/12/16 09/13/16 17:15 05:13 04:49 Potassium Level 3.2 MEQ/L 3.0 MEQ/L 3.7 MEQ/L Troponin I LESS THAN 0.02 NG/ML Sodium Level 135 MEQ/L 140 MEQ/L Chloride Level 98 MEQ/L 107 MEQ/L Carbon Dioxide Level 28.2 MEQ/L 25.8 MEQ/L Anion Gap 9 MEQ/L 7 MEQ/L Blood Urea Nitrogen 10 MG/DL 7 MG/DL Creatinine 0.80 MG/DL 0.72 MG/DL Estimat Glomerular Filtration 80 ML/MIN 91 ML/MIN Rate Random Glucose 95 MG/DL 109 MG/DL Calcium Level 7.9 MG/DL 8.0 MG/DL Magnesium Level 2.1 MG/DL Total Bilirubin 0.7 MG/DL 0.2 MG/DL Aspartate Amino Transf 63 U/L 45 U/L (AST/SGOT) Alanine Aminotransferase 120 U/L 104 U/L (ALT/SGPT) Alkaline Phosphatase 166 U/L 145 U/L Total Protein 7.2 GM/DL 7.2 GM/DL Albumin 3.1 GM/DL 2.9 GM/DL Direct Bilirubin 0.1 MG/DL Indirect Bilirubin 0.1 MG/DL Microbiology Date/Time Procedure Status Source Growth 09/11/16 03:40 Aerobic Blood Culture - Preliminary Resulted Blood Peripheral NO GROWTH IN 2 DAYS 09/11/16 03:40 Anaerobic Blood Culture - Preliminary Resulted Blood Peripheral NO GROWTH IN 2 DAYS 09/11/16 03:50 Aerobic Blood Culture - Preliminary Resulted Blood Peripheral NO GROWTH IN 2 DAYS 09/11/16 03:50 Anaerobic Blood Culture - Preliminary Resulted Blood Peripheral NO GROWTH IN 2 DAYS 09/11/16 04:00 Influenza Types A,B Antigen (JORGE) - Final Complete Nasal Aspirate NEGATIVE FOR FLU A AND B ANTIGEN.... 09/11/16 11:20 Urine Culture - Final Complete Urine Catheterized Urine NO GROWTH IN 48 HOURS. 09/11/16 11:20 Legionella Antigen - Final Complete Urine Clean Catch PRESUMPTIVE NEGATIVE FOR LEGIONELLA P... 09/11/16 11:20 Streptococcus pneumoniae Antigen (M - Final Complete Urine Clean Catch PRESUMPTIVE NEGATIVE FOR STREPTOCOCCU... 09/12/16 05:00 Gram Stain - Final Resulted Sputum Expectorated Sputum 09/12/16 05:00 Sputum Culture Resulted Sputum Expectorated Sputum Pending Imaging Last Impressions Chest X-Ray 09/11/16 0303 Signed Impressions: Service Date/Time: Sunday, September 11, 2016 01:24 - CONCLUSION: No acute disease. Adriano Manley MD Gall Bladder Ultrasound 09/11/16 0000 Signed Impressions: Service Date/Time: Sunday, September 11, 2016 18:09 - CONCLUSION: 1. Gallstones in gallbladder. No biliary ductal dilatation. Small cyst right lobe liver. No free fluid. Bennie Ivy MD Chest CT 09/11/16 0000 Signed Impressions: Service Date/Time: Sunday, September 11, 2016 16:15 - CONCLUSION: 1. Minimal air-space disease as described above. 2. There is no evidence for central pulmonary emboli. 3. Gallstones in a small contracted gallbladder. Lopez Spangler MD FACR Physical Exam GENERAL: awake and alert, NAD SKIN: Warm and dry, no generalized rash. HEENT: [place] conjunctivae. No scleral icterus. Moist oral mucosa. No oral thrush. NECK: Trachea midline. No JVD or lymphadenopathy. Supple, nontender, no meningeal signs. CARDIOVASCULAR: Regular rate and rhythm without murmurs, gallops, or rubs. RESPIRATORY: Clear to auscultation. Breath sounds equal bilaterally. No wheezes , rales, or rhonchi. Port L upper chest, accessed, with no evidence of infection GASTROINTESTINAL: Abdomen soft, non-tender, nondistended. Bowel sounds are present and normoactive. No guarding. MUSCULOSKELETAL: Extremities without clubbing, cyanosis, or edema. No calf tenderness. NEUROLOGICAL: Non-focal. PSYCH: Calm and cooperative LINE: Port without any evidence of infection Assessment & Plan Remarks IMPRESSION Sepsis on admission, symptoms all point to respiratory, possibly early PNA, - CXR clear, but she is congested and has pleuritic pain when she coughs - CT with small infiltrates RML and L base Possible early PNA - ?atypical has some ear pain and elevated LFT R breast CA - undergoing chemo Elevated LFT, exam is benign, ?due to sepsis - LFT slightly better Diarrhea RECOMMENDATION Continue Zithromax Continue Vancomycin Change Zosyn to Cefepime Monitor temps Repeat CXR Monitor progress Stool for C diff Explained plan to patient Marii Dacosta MD Sep 13, 2016 16:05
[2016-09-13 16:24] VITALS: BP 109/62; PULSE 99; RESP 19; TEMP 97.9; O2SAT 100
[2016-09-13 17:56] LABS: AUTOMATED NEUTROPHIL # 4.9 TH/MM3 (1.8-7.7); BASOPHIL % 0.3 % (0.0-2.0); EOSINOPHIL % 0.5 % (0.0-4.0); HEMATOCRIT 29.2 % (35.0-46.0); HEMO FLAGS DIFF FINAL; LYMPH % 22.3 % (9.0-44.0); LYMPHOCYTE # 1.7 TH/MM3 (1.0-4.8); MEAN CORPUSCULAR HEMOGLOBIN 29.3 PG (27.0-34.0); MEAN CORPUSCULAR HGB CONC 34.5 % (32.0-36.0); MONO % 13.1 % (0.0-8.0); NEUT % 63.8 % (16.0-70.0); PLATELET COUNT 134 TH/MM3 (150-450); RED BLOOD COUNT 3.43 MIL/MM3 (4.00-5.30); RED CELL DISTRIBUTION WIDTH 13.6 % (11.6-17.2); WHITE BLOOD COUNT 7.7 TH/MM3 (4.0-11.0)
[2016-09-13] MEDS: CEFEPIME INJ 2,000 MG in SODIUM CHLORIDE 0.9% INJ 100 ML IV SCH ×2 (18:02→18:48)
[2016-09-13 18:09] LABS: BICARBONATE 27.8 MEQ/L (21.0-32.0); POTASSIUM 3.5 MEQ/L (3.5-5.1)
--- NOTE | 2016-09-13 18:53 | RADRPT ---
EXAM DATE/TIME: 09/13/2016 17:20 [place] COMPARISON: No previous studies available for comparison. INDICATIONS : Cough, fever for 3 days MEDICAL HISTORY : Right breast cancer. Carpal tunnel. Hypertension. Chemotherapy. SURGICAL HISTORY : Appendectomy. section. Right ear surgery. Right breast biopsy. ENCOUNTER: Subsequent ACUITY: 3 days PAIN SCORE: 0/10 LOCATION: Bilateral chest FINDINGS: A left subclavian Cicily-u-Ziac has its tip in the superior vena cava. There is no pneumothorax. Mi ld central pulmonary vascular congestion is noted. The heart is minimally prominent. CONCLUSION: 1. Minimal cardiomegaly. 2. Minimal central pulmonary vascular congestion. Dedrick Napier MD on September 13, 2016 at 18:39 Board Certified Radiologist. This report was verified electronically.
[2016-09-13 20:00] VITALS: BP 114/70; PULSE 102; PULSE 97; RESP 18; TEMP 97.9; O2SAT 97
[2016-09-13] MEDS: PSYLLIUM FIBER SF/GF 6 GM POWD PKT PO SCH (22:28)
[2016-09-14] VITALS (7 sets, daily range): BP systolic 107–119; BP diastolic 57–73; PULSE 88–104; RESP 17–19; TEMP 97.8–98.6; O2SAT 95–100
[2016-09-14] MEDS: CEFEPIME INJ 2,000 MG in SODIUM CHLORIDE 0.9% INJ 100 ML IV SCH ×2 (06:14→17:01)
[2016-09-14] MEDS: diphenhydrAMINE HCL 25 MG CAP PO PRN ×3 (06:14→21:03)
[2016-09-14] MEDS: VANCOMYCIN 1,000 MG/NS 250 ML IV SCH ×6 (06:16→21:03)
[2016-09-14 08:30] LABS: C. DIFF EPI 027 PRESUMPTIVE NEGATIVE (NEGATIVE); C. DIFF TOXIN PCR NEGATIVE (NEGATIVE)
[2016-09-14] MEDS: DOCUSATE SODIUM 100 MG CAP PO SCH ×2 (09:00→21:00)
[2016-09-14] MEDS: LACTOBACILLUS ACIDOPHILUS 1 GM PACKET PO SCH ×3 (09:11→17:12)
[2016-09-14] MEDS: ENOXAPARIN SODIUM 40 MG/0.4 ML SYRINGE SQ SCH (09:11)
[2016-09-14] MEDS: AZITHROMYCIN 250 MG TAB PO SCH (09:11)
[2016-09-14] MEDS: PSYLLIUM FIBER SF/GF 6 GM POWD PKT PO SCH ×2 (09:11→21:01)
[2016-09-14] MEDS: POTASSIUM CHLORIDE 10 MEQ CONTROLLED RELEASE TAB PO SCH ×2 (09:11→21:02)
[2016-09-14] MEDS: SODIUM CHLORIDE 0.9% FLUSH 5 ML FLUSH FLUSH SCH ×2 (09:12→21:03)
[2016-09-14] MEDS: HYDROCORTISONE ACETATE 25 MG SUPP RECTAL SCH ×2 (09:12→21:03)
--- NOTE | 2016-09-14 13:41 | HHI.PR ---
Subjective Remarks feeling much better stool now forming will continue fiber Objective Current Medications Medications (Trade) Dose Ordered Sig/Carlitos Route PRN Reason Start Time Stop Time Status Last Admin Dose Admin IV Flush (NS Flush) 2 ml UNSCH PRN FLUSH FLUSH AFTER USING IV ACCESS 09/11/16 07:00 IV Flush (NS Flush) 2 ml BID FLUSH 09/11/16 09:00 09/14/16 09:12 Acetaminophen (Tylenol) 650 mg Q4H PRN PO TEMP > 100.4 09/11/16 07:00 Ondansetron HCl (Zofran Inj) 4 mg Q6H PRN IVP NAUSEA OR VOMITING 09/11/16 07:00 Bisacodyl (Dulcolax Supp) 10 mg DAILY PRN [place] CONSTIPATION 09/11/16 07:00 Docusate Sodium (Colace) 100 mg Q12HR PO 09/11/16 07:00 09/13/16 22:27 Naloxone HCl (Narcan Inj) 0.4 mg UNSCH PRN IV SEE LABEL COMMENTS 09/11/16 07:00 Enoxaparin Sodium 40 mg 40 mg Q24H SQ 09/11/16 08:00 09/14/16 09:11 Pharmacy Profile Note (Vancomycin Consult Pharmacy) 0 ml @ 0 mls/hr UNSCH OTHER 09/11/16 14:45 Azithromycin (Zithromax) 500 mg DAILY PO 09/11/16 16:00 09/14/16 09:11 Diphenhydramine HCl (Benadryl) 25 mg UNSCH PRN PO SEE LABEL COMMENTS 09/11/16 19:30 09/14/16 13:24 Potassium Chloride (KCl) 30 meq Q12HR PO 09/12/16 15:45 09/14/16 09:11 IV Flush (NS Flush) 5 ml UNSCH PRN IVF SEE PROTOCOL TABLE 09/12/16 17:30 Heparin Sodium (Porcine) (Heparin Central Flush) 250 units UNSCH PRN IVF SEE PROTOCOL TABLE 09/12/16 17:30 Heparin Sodium (Porcine) (Heparin Central Flush) 500 units UNSCH IVF 09/12/16 17:30 Hydrocortisone Acetate (Hemorrhoidal Hc Supp) 25 mg BID RECTAL 09/12/16 21:00 09/14/16 09:12 Lactobacillus Acidophilus 1 gm 1 gm TID PO 09/13/16 09:00 09/14/16 13:24 Vancomycin HCl/ Sodium Chloride (Vancomycin Inj/ NS 250 ml Inj) 250 ml @ 250 mls/hr Q8H IV 09/13/16 14:00 09/14/16 06:16 Miscellaneous Information SPECIFIC LAB TO BE IRIS... ONCE ONCE XX 09/14/16 13:45 09/14/16 13:46 09/14/16 13:25 Psyllium Hydrophilic Mucilloid 1 pkt 1 pkt BID PO 09/13/16 21:00 09/14/16 09:11 Cefepime HCl/ Sodium Chloride (Maxipime Inj/NS Inj) 100 ml @ 200 mls/hr Q12H IV 09/13/16 17:00 09/14/16 06:14 Vital Signs Date Time Temp Pulse Resp B/P Pulse Ox O2 Delivery O2 Flow Rate FiO2 09/14/16 12:00 98.3 104 17 114/64 95 09/14/16 09:00 Room Air 09/14/16 08:59 Nasal Cannula 09/14/16 08:00 98.5 88 19 117/57 100 09/14/16 08:00 95 09/14/16 04:00 98.2 97 17 107/64 97 09/14/16 00:13 97 09/14/16 00:00 98.6 97 17 107/59 100 09/13/16 20:30 Room Air 21 09/13/16 20:00 97.9 97 18 114/70 97 09/13/16 20:00 97.9 97 18 114/70 97 09/13/16 20:00 102 09/13/16 18:26 96 Room Air 09/13/16 16:24 97.9 99 19 109/62 100 I/O 09/13/16 09/13/16 09/13/16 09/14/16 09/14/16 09/14/16 07:00 15:00 23:00 07:00 15:00 23:00 Intake Total 120 ml 480 ml 240 ml 575 ml Balance 120 ml 480 ml 240 ml 575 ml Intake Oral 120 ml 480 ml 240 ml 220 ml IV Total 355 ml # Voids 2 3 2 1 # Bowel Movements 2 0 Result Diagram: 09/13/16 1745 09/13/16 174 Imaging Last 48 hours Impressions Chest X-Ray 09/13/16 0000 Signed Impressions: Service Date/Time: Tuesday, September 13, 2016 17:20 - CONCLUSION: 1. Minimal cardiomegaly. 2. Minimal central pulmonary vascular congestion. Dedrick Napier MD Objective Remarks GENERAL: SKIN: Warm and dry. HEAD: Atraumatic. Normocephalic. EYES: Pupils equal and round. No scleral icterus. No injection or drainage. ENT: No nasal bleeding or discharge. Mucous membranes pink and moist. NECK: Trachea midline. No JVD. CARDIOVASCULAR: Regular rate and rhythm. RESPIRATORY: No accessory muscle use. Clear to auscultation. Breath sounds equal bilaterally occrhonchi present with barking cough. GASTROINTESTINAL: Abdomen soft, non-tender, nondistended. Hepatic and splenic margins not palpable. MUSCULOSKELETAL: Extremities without clubbing, cyanosis, or edema. No obvious deformities. NEUROLOGICAL: Awake and alert. No obvious cranial nerve deficits. Motor grossly within normal limits. Five out of 5 muscle strength in the arms and legs. Normal speech. PSYCHIATRIC: Appropriate mood and affect; insight and judgment normal. Medications and IVs Current Medications Medications (Trade) Dose Ordered Sig/Carlitos Route PRN Reason Start Time Stop Time Status Last Admin Dose Admin IV Flush (NS Flush) 2 ml UNSCH PRN FLUSH FLUSH AFTER USING IV ACCESS 09/11/16 07:00 IV Flush (NS Flush) 2 ml BID FLUSH 09/11/16 09:00 09/14/16 09:12 Acetaminophen (Tylenol) 650 mg Q4H PRN PO TEMP > 100.4 09/11/16 07:00 Ondansetron HCl (Zofran Inj) 4 mg Q6H PRN IVP NAUSEA OR VOMITING 09/11/16 07:00 Bisacodyl (Dulcolax Supp) 10 mg DAILY PRN [place] CONSTIPATION 09/11/16 07:00 Docusate Sodium (Colace) 100 mg Q12HR PO 09/11/16 07:00 09/13/16 22:27 Naloxone HCl (Narcan Inj) 0.4 mg UNSCH PRN IV SEE LABEL COMMENTS 09/11/16 07:00 Enoxaparin Sodium 40 mg 40 mg Q24H SQ 09/11/16 08:00 09/14/16 09:11 Pharmacy Profile Note (Vancomycin Consult Pharmacy) 0 ml @ 0 mls/hr UNSCH OTHER 09/11/16 14:45 Azithromycin (Zithromax) 500 mg DAILY PO 09/11/16 16:00 09/14/16 09:11 Diphenhydramine HCl (Benadryl) 25 mg UNSCH PRN PO SEE LABEL COMMENTS 09/11/16 19:30 09/14/16 13:24 Potassium Chloride (KCl) 30 meq Q12HR PO 09/12/16 15:45 09/14/16 09:11 IV Flush (NS Flush) 5 ml UNSCH PRN IVF SEE PROTOCOL TABLE 09/12/16 17:30 Heparin Sodium (Porcine) (Heparin Central Flush) 250 units UNSCH PRN IVF SEE PROTOCOL TABLE 09/12/16 17:30 Heparin Sodium (Porcine) (Heparin Central Flush) 500 units UNSCH IVF 09/12/16 17:30 Hydrocortisone Acetate (Hemorrhoidal Hc Supp) 25 mg BID RECTAL 09/12/16 21:00 09/14/16 09:12 Lactobacillus Acidophilus 1 gm 1 gm TID PO 09/13/16 09:00 09/14/16 13:24 Vancomycin HCl/ Sodium Chloride (Vancomycin Inj/ NS 250 ml Inj) 250 ml @ 250 mls/hr Q8H IV 09/13/16 14:00 09/14/16 06:16 Miscellaneous Information SPECIFIC LAB TO BE ... ONCE ONCE XX 09/14/16 13:45 09/14/16 13:46 09/14/16 13:25 Psyllium Hydrophilic Mucilloid 1 pkt 1 pkt BID PO 09/13/16 21:00 09/14/16 09:11 Cefepime HCl/ Sodium Chloride (Maxipime Inj/NS Inj) 100 ml @ 200 mls/hr Q12H IV 09/13/16 17:00 09/14/16 06:14 Assessment and Plan Problem List: (1) Pneumonia Status: Acute (2) Diarrhea Status: Acute Assessment and Plan continue fiber pts bowels are now forming will ck lab in Eriberto Peacock DO Sep 14, 2016 13:41
[2016-09-14] MEDS ORDERED: PHARMACY ORDERED LAB XX ONE (13:45)
[2016-09-15] VITALS (9 sets, daily range): BP systolic 110–124; BP diastolic 53–72; PULSE 89–113; RESP 16–26; TEMP 97.6–98.5; O2SAT 97–99
[2016-09-15] MEDS: CEFEPIME INJ 2,000 MG in SODIUM CHLORIDE 0.9% INJ 100 ML IV SCH ×2 (05:50→17:21)
[2016-09-15] MEDS: diphenhydrAMINE HCL 25 MG CAP PO PRN ×3 (05:50→20:57)
[2016-09-15] MEDS: VANCOMYCIN 1,000 MG/NS 250 ML IV SCH ×6 (06:20→21:57)
[2016-09-15 07:02] LABS: AUTOMATED NEUTROPHIL # 6.7 TH/MM3 (1.8-7.7); BASOPHIL % 0.4 % (0.0-2.0); EOSINOPHIL % 0.2 % (0.0-4.0); HEMATOCRIT 28.7 % (35.0-46.0); HEMO FLAGS DIFF FINAL; LYMPH % 16.4 % (9.0-44.0); LYMPHOCYTE # 1.5 TH/MM3 (1.0-4.8); MEAN CORPUSCULAR HEMOGLOBIN 29.7 PG (27.0-34.0); MEAN CORPUSCULAR HGB CONC 34.9 % (32.0-36.0); MONO % 9.5 % (0.0-8.0); NEUT % 73.5 % (16.0-70.0); PLATELET COUNT 130 TH/MM3 (150-450); RED BLOOD COUNT 3.38 MIL/MM3 (4.00-5.30); RED CELL DISTRIBUTION WIDTH 13.5 % (11.6-17.2); WHITE BLOOD COUNT 9.2 TH/MM3 (4.0-11.0)
[2016-09-15 07:30] LABS: BICARBONATE 22.5 MEQ/L (21.0-32.0); POTASSIUM 3.8 MEQ/L (3.5-5.1)
[2016-09-15] MEDS: SODIUM CHLORIDE 0.9% FLUSH 5 ML FLUSH FLUSH SCH ×2 (09:00→20:57)
[2016-09-15] MEDS: HYDROCORTISONE ACETATE 25 MG SUPP RECTAL SCH ×2 (09:44→20:58)
[2016-09-15] MEDS: POTASSIUM CHLORIDE 10 MEQ CONTROLLED RELEASE TAB PO SCH ×2 (09:44→20:57)
[2016-09-15] MEDS: ENOXAPARIN SODIUM 40 MG/0.4 ML SYRINGE SQ SCH (09:44)
[2016-09-15] MEDS: AZITHROMYCIN 250 MG TAB PO SCH (09:44)
[2016-09-15] MEDS: DOCUSATE SODIUM 100 MG CAP PO SCH ×3 (09:44→21:00)
[2016-09-15] MEDS: PSYLLIUM FIBER SF/GF 6 GM POWD PKT PO SCH ×2 (09:44→20:57)
[2016-09-15] MEDS: LACTOBACILLUS ACIDOPHILUS 1 GM PACKET PO SCH ×3 (09:45→17:21)
--- NOTE | 2016-09-15 13:47 | HHI.PR ---
Subjective Remarks feeling much better stool now forming will continue fiber cough decreasing Objective Vital Signs Date Time Temp Pulse Resp B/P Pulse Ox O2 Delivery O2 Flow Rate FiO2 09/15/16 12:26 99 21 09/15/16 08:09 98.2 105 18 124/71 99 09/15/16 08:00 Room Air 09/15/16 08:00 91 09/15/16 04:00 97.6 89 16 110/59 99 09/15/16 00:00 98.0 94 18 110/53 97 09/14/16 20:00 98 09/14/16 20:00 Room Air 21 09/14/16 20:00 97.8 98 18 117/73 98 09/14/16 16:00 98.3 98 17 119/69 98 I/O 09/14/16 09/14/16 09/14/16 09/15/16 09/15/16 09/15/16 07:00 15:00 23:00 07:00 15:00 23:00 Intake Total 575 ml 1452 ml 360 ml 860 ml Balance 575 ml 1452 ml 360 ml 860 ml Intake Oral 220 ml 1200 ml 240 ml 240 ml IV Total 355 ml 252 ml 120 ml 620 ml # Voids 1 4 1 1 # Bowel Movements 2 1 0 Result Diagram: 09/15/16 0600 09/15/16 0600 Objective Remarks GENERAL: SKIN: Warm and dry. HEAD: Atraumatic. Normocephalic. EYES: Pupils equal and round. No scleral icterus. No injection or drainage. ENT: No nasal bleeding or discharge. Mucous membranes pink and moist. NECK: Trachea midline. No JVD. CARDIOVASCULAR: Regular rate and rhythm. RESPIRATORY: No accessory muscle use. Clear to auscultation. Breath sounds equal bilaterally occ rhonchi present with barking cough diminishing. GASTROINTESTINAL: Abdomen soft, non-tender, nondistended. Hepatic and splenic margins not palpable. MUSCULOSKELETAL: Extremities without clubbing, cyanosis, or edema. No obvious deformities. NEUROLOGICAL: Awake and alert. No obvious cranial nerve deficits. Motor grossly within normal limits. Five out of 5 muscle strength in the arms and legs. Normal speech. PSYCHIATRIC: Appropriate mood and affect; insight and judgment normal. Medications and IVs Current Medications Medications (Trade) Dose Ordered Sig/Carlitos Route PRN Reason Start Time Stop Time Status Last Admin Dose Admin IV Flush (NS Flush) 2 ml UNSCH PRN FLUSH FLUSH AFTER USING IV ACCESS 09/11/16 07:00 IV Flush (NS Flush) 2 ml BID FLUSH 09/11/16 09:00 09/15/16 09:00 Acetaminophen (Tylenol) 650 mg Q4H PRN PO TEMP > 100.4 09/11/16 07:00 Ondansetron HCl (Zofran Inj) 4 mg Q6H PRN IVP NAUSEA OR VOMITING 09/11/16 07:00 Bisacodyl (Dulcolax Supp) 10 mg DAILY PRN [place] CONSTIPATION 09/11/16 07:00 Docusate Sodium (Colace) 100 mg Q12HR PO 09/11/16 07:00 09/15/16 09:44 Naloxone HCl (Narcan Inj) 0.4 mg UNSCH PRN IV SEE LABEL COMMENTS 09/11/16 07:00 Enoxaparin Sodium 40 mg 40 mg Q24H SQ 09/11/16 08:00 09/15/16 09:44 Pharmacy Profile Note (Vancomycin Consult Pharmacy) 0 ml @ 0 mls/hr UNSCH OTHER 09/11/16 14:45 Azithromycin (Zithromax) 500 mg DAILY PO 09/11/16 16:00 09/15/16 09:44 Diphenhydramine HCl (Benadryl) 25 mg UNSCH PRN PO SEE LABEL COMMENTS 09/11/16 19:30 09/15/16 05:50 Potassium Chloride (KCl) 30 meq Q12HR PO 09/12/16 15:45 09/15/16 09:44 IV Flush (NS Flush) 5 ml UNSCH PRN IVF SEE PROTOCOL TABLE 09/12/16 17:30 Heparin Sodium (Porcine) (Heparin Central Flush) 250 units UNSCH PRN IVF SEE PROTOCOL TABLE 09/12/16 17:30 Heparin Sodium (Porcine) (Heparin Central Flush) 500 units UNSCH IVF 09/12/16 17:30 Hydrocortisone Acetate (Hemorrhoidal Hc Supp) 25 mg BID RECTAL 09/12/16 21:00 09/15/16 09:44 Lactobacillus Acidophilus 1 gm 1 gm TID PO 09/13/16 09:00 09/15/16 09:45 Vancomycin HCl/ Sodium Chloride (Vancomycin Inj/ NS 250 ml Inj) 250 ml @ 250 mls/hr Q8H IV 09/13/16 14:00 09/15/16 06:20 Psyllium Hydrophilic Mucilloid 1 pkt 1 pkt BID PO 09/13/16 21:00 09/15/16 09:44 Cefepime HCl/ Sodium Chloride (Maxipime Inj/NS Inj) 100 ml @ 200 mls/hr Q12H IV 09/13/16 17:00 09/15/16 05:50 Assessment and Plan Problem List: (1) Pneumonia Status: Acute (2) Diarrhea Status: Acute Assessment and Plan continue fiber pts bowels are now forming will ck lab in am cough improved Discharge Planning home with [facility] Eriberto Rockwell DO Sep 15, 2016 13:47
[2016-09-16] VITALS (9 sets, daily range): BP systolic 99–133; BP diastolic 51–77; PULSE 85–102; RESP 16–22; TEMP 97.5–98.2; O2SAT 96–100
[2016-09-16] MEDS: CEFEPIME INJ 2,000 MG in SODIUM CHLORIDE 0.9% INJ 100 ML IV SCH (05:00)
[2016-09-16] MEDS: diphenhydrAMINE HCL 25 MG CAP PO PRN ×2 (05:31→12:29)
[2016-09-16 07:30] LABS: AUTOMATED NEUTROPHIL # 6.8 TH/MM3 (1.8-7.7); BASOPHIL % 0.3 % (0.0-2.0); EOSINOPHIL % 0.1 % (0.0-4.0); HEMATOCRIT 29.2 % (35.0-46.0); HEMO FLAGS DIFF FINAL; LYMPH % 14.5 % (9.0-44.0); LYMPHOCYTE # 1.3 TH/MM3 (1.0-4.8); MEAN CELL VOLUME 86.7 FL (80.0-100.0); MEAN CORPUSCULAR HEMOGLOBIN 29.3 PG (27.0-34.0); MEAN CORPUSCULAR HGB CONC 33.8 % (32.0-36.0); MONO % 9.4 % (0.0-8.0); NEUT % 75.7 % (16.0-70.0); PLATELET COUNT 121 TH/MM3 (150-450); RED BLOOD COUNT 3.36 MIL/MM3 (4.00-5.30); RED CELL DISTRIBUTION WIDTH 13.2 % (11.6-17.2); WHITE BLOOD COUNT 8.9 TH/MM3 (4.0-11.0)
[2016-09-16 07:43] LABS: BICARBONATE 24.1 MEQ/L (21.0-32.0); POTASSIUM 4.1 MEQ/L (3.5-5.1)
[2016-09-16] MEDS: DOCUSATE SODIUM 100 MG CAP PO SCH ×2 (08:29→21:00)
[2016-09-16] MEDS: PSYLLIUM FIBER SF/GF 6 GM POWD PKT PO SCH ×2 (08:41→21:00)
[2016-09-16] MEDS: LACTOBACILLUS ACIDOPHILUS 1 GM PACKET PO SCH ×3 (08:41→17:07)
[2016-09-16] MEDS: ENOXAPARIN SODIUM 40 MG/0.4 ML SYRINGE SQ SCH (08:42)
[2016-09-16] MEDS: AZITHROMYCIN 250 MG TAB PO SCH (08:42)
[2016-09-16] MEDS: POTASSIUM CHLORIDE 10 MEQ CONTROLLED RELEASE TAB PO SCH (08:42)
[2016-09-16] MEDS: HYDROCORTISONE ACETATE 25 MG SUPP RECTAL SCH ×2 (08:42→21:42)
[2016-09-16] MEDS: SODIUM CHLORIDE 0.9% FLUSH 5 ML FLUSH FLUSH SCH ×2 (08:51→21:42)
--- NOTE | 2016-09-16 12:58 | HHI.IDPN ---
Subjective Subjective Remarks Notes reviewed Temps ok Feels good Anxious to go home C/S reviewed Antibiotics Zithromax Vanco Cefepime Lines Port Past Medical History Hypertension Thyroid nodule, papillary CA Right breast cancer on chemo Carpal tunnel surgery One History of gallstones Past Surgical History Right ear surgery X 2 Right breast biopsy X 2 section Appendectomy Port placement Allergies: Coded Allergies: Hydrocodone (Verified Allergy, Severe, Shortness of Breath, 09/11/16) Oxycodone (Verified Allergy, Severe, Shortness of Breath, 09/11/16) Methocarbamol (Verified Adverse Reaction, Severe, PRESSURE ON CHEST, ) Objective . Vital Signs Date Time Temp Pulse Resp B/P Pulse Ox O2 Delivery O2 Flow Rate FiO2 09/16/16 12:00 97.7 95 20 133/72 100 09/16/16 11:37 100 09/16/16 10:15 98 09/16/16 08:00 97.8 96 16 124/77 100 09/16/16 04:00 98.0 85 18 99/54 98 09/16/16 00:00 97.7 85 22 106/51 96 09/15/16 20:30 Room Air 09/15/16 20:00 98.5 91 26 112/63 98 09/15/16 19:46 21 09/15/16 19:41 104 09/15/16 16:10 98.4 97 18 122/65 98 09/15/16 09/15/16 09/16/16 15:00 23:00 07:00 Intake Total 360 ml 988 ml 786 ml Balance 360 ml 988 ml 786 ml Intake Oral 360 ml 480 ml 280 ml IV Total 508 ml 506 ml # Voids 5 3 2 # Bowel Movements 3 2 . Laboratory Tests Test 09/15/16 09/16/16 06:00 06:05 White Blood Count 9.2 TH/MM3 8.9 TH/MM3 Red Blood Count 3.38 MIL/MM3 3.36 MIL/MM3 Hemoglobin 10.0 GM/DL 9.8 GM/DL Hematocrit 28.7 % 29.2 % Mean Corpuscular Volume 85.0 FL 86.7 FL Mean Corpuscular Hemoglobin 29.7 PG 29.3 PG Mean Corpuscular Hemoglobin 34.9 % 33.8 % Concent Red Cell Distribution Width 13.5 % 13.2 % Platelet Count 130 TH/MM3 121 TH/MM3 Mean Platelet Volume 8.6 FL 8.3 FL Neutrophils (%) (Auto) 73.5 % 75.7 % Lymphocytes (%) (Auto) 16.4 % 14.5 % Monocytes (%) (Auto) 9.5 % 9.4 % Eosinophils (%) (Auto) 0.2 % 0.1 % Basophils (%) (Auto) 0.4 % 0.3 % Neutrophils # (Auto) 6.7 TH/MM3 6.8 TH/MM3 Lymphocytes # (Auto) 1.5 TH/MM3 1.3 TH/MM3 Monocytes # (Auto) 0.9 TH/MM3 0.8 TH/MM3 Eosinophils # (Auto) 0.0 TH/MM3 0.0 TH/MM3 Basophils # (Auto) 0.0 TH/MM3 0.0 TH/MM3 CBC Comment DIFF FINAL DIFF FINAL Differential Comment Laboratory Tests Test 09/15/16 09/16/16 06:00 06:05 Sodium Level 139 MEQ/L 140 MEQ/L Potassium Level 3.8 MEQ/L 4.1 MEQ/L Chloride Level 108 MEQ/L 107 MEQ/L Carbon Dioxide Level 22.5 MEQ/L 24.1 MEQ/L Anion Gap 9 MEQ/L 9 MEQ/L Blood Urea Nitrogen 5 MG/DL 7 MG/DL Creatinine 0.69 MG/DL 0.72 MG/DL Estimat Glomerular Filtration 95 ML/MIN 91 ML/MIN Rate Random Glucose 88 MG/DL 87 MG/DL Calcium Level 8.1 MG/DL 8.3 MG/DL Imaging Last Impressions Chest X-Ray 09/11/16 0303 Signed Impressions: Service Date/Time: Sunday, September 11, 2016 01:24 - CONCLUSION: No acute disease. Adriano Manley MD Gall Bladder Ultrasound 09/11/16 0000 Signed Impressions: Service Date/Time: Sunday, September 11, 2016 18:09 - CONCLUSION: 1. Gallstones in gallbladder. No biliary ductal dilatation. Small cyst right lobe liver. No free fluid. Bennie Ivy MD Chest CT 09/11/16 0000 Signed Impressions: Service Date/Time: Sunday, September 11, 2016 16:15 - CONCLUSION: 1. Minimal air-space disease as described above. 2. There is no evidence for central pulmonary emboli. 3. Gallstones in a small contracted gallbladder. Lopez G. Miles, MD FACR Physical Exam GENERAL: awake and alert, NAD SKIN: Warm and dry, no generalized rash. HEENT: [place] conjunctivae. No scleral icterus. Moist oral mucosa. No oral thrush. NECK: Trachea midline. No JVD or lymphadenopathy. Supple, nontender, no meningeal signs. CARDIOVASCULAR: Regular rate and rhythm without murmurs, gallops, or rubs. RESPIRATORY: Clear to auscultation. Breath sounds equal bilaterally. No wheezes , rales, or rhonchi. Port L upper chest, accessed, with no evidence of infection GASTROINTESTINAL: Abdomen soft, non-tender, nondistended. Bowel sounds are present and normoactive. No guarding. MUSCULOSKELETAL: Extremities without clubbing, cyanosis, or edema. No calf tenderness. NEUROLOGICAL: Non-focal. PSYCH: Calm and cooperative LINE: Port without any evidence of infection Assessment & Plan Remarks IMPRESSION Sepsis on admission, symptoms all point to respiratory, possibly early PNA, - resolved - CXR clear, but she is congested and has pleuritic pain when she coughs - CT with small infiltrates RML and L base Possible early PNA R breast CA - undergoing chemo Elevated LFT, exam is benign, ?due to sepsis - LFT slightly better Diarrhea RECOMMENDATION Stop Zithromax Stop Vancomycin Stop Cefepime Start Levaquin - if no GI problems with first dose, ok to D/C from ID standpoint and give 5 more days oral Abx Explained plan to patient D/W Marii Hoyt MD Sep 16, 2016 12:58
[2016-09-16] MEDS ORDERED: LEVA500T PO (12:59)
[2016-09-16] MEDS: LEVOFLOXACIN 500 MG TAB PO SCH (13:10)
--- NOTE | 2016-09-16 16:24 | HHI.PR ---
Subjective Remarks Feeling better today Objective Vital Signs Date Time Temp Pulse Resp B/P Pulse Ox O2 Delivery O2 Flow Rate FiO2 09/16/16 13:20 Room Air 09/16/16 12:00 97.7 95 20 133/72 100 09/16/16 11:37 100 09/16/16 10:15 98 09/16/16 08:00 97.8 96 16 124/77 100 09/16/16 04:00 98.0 85 18 99/54 98 09/16/16 00:00 97.7 85 22 106/51 96 09/15/16 20:30 Room Air 09/15/16 20:00 98.5 91 26 112/63 98 09/15/16 19:46 21 09/15/16 19:41 104 I/O 09/15/16 09/15/16 09/15/16 09/16/16 09/16/16 09/16/16 07:00 15:00 23:00 07:00 15:00 23:00 Intake Total 860 ml 360 ml 988 ml 786 ml 732 ml Balance 860 ml 360 ml 988 ml 786 ml 732 ml Intake Oral 240 ml 360 ml 480 ml 280 ml 720 ml IV Total 620 ml 508 ml 506 ml 12 ml # Voids 1 5 3 2 4 # Bowel Movements 0 3 2 4 Result Diagram: 09/16/1660409/16/16604 Objective Remarks GENERAL: Well-nourished, well-developed patient. SKIN: Warm and dry. HEAD: Normocephalic. EYES: No scleral icterus. No injection or drainage. NECK: Supple, trachea midline. No JVD or lymphadenopathy. CARDIOVASCULAR: Regular rate and rhythm without murmurs, gallops, or rubs. RESPIRATORY: Breath sounds equal bilaterally. No accessory muscle use. Occ rhonchi, pleuritic chest discomfort with cough/deep insp. GASTROINTESTINAL: Abdomen soft, non-tender, nondistended. EXTREMITIES: No cyanosis, or edema. NEUROLOGICAL: Awake, alert, and oriented x 3. Non-focal. Medications and IVs Current Medications Medications (Trade) Dose Ordered Sig/Carlitos Route Start Time Stop Time Status Last Admin (NS Flush) 2 ml UNSCH PRN FLUSH 09/11/16 07:00 (NS Flush) 2 ml BID FLUSH 09/11/16 09:00 09/16/16 08:51 (Tylenol) 650 mg Q4H PRN PO 09/11/16 07:00 (Zofran Inj) 4 mg Q6H PRN IVP 09/11/16 07:00 (Dulcolax Supp) 10 mg DAILY PRN [place] 09/11/16 07:00 (Colace) 100 mg Q12HR PO 09/11/16 07:00 09/15/16 09:44 (Narcan Inj) 0.4 mg UNSCH PRN IV 09/11/16 07:00 (Lovenox Inj) 40 mg Q24H SQ 09/11/16 08:00 09/16/16 08:42 (Benadryl) 25 mg UNSCH PRN PO 09/11/16 19:30 09/16/16 12:29 (KCl) 30 meq Q12HR PO 09/12/16 15:45 09/16/16 08:42 (NS Flush) 5 ml UNSCH PRN IVF 09/12/16 17:30 (Heparin Central Flush) 250 units UNSCH PRN IVF 09/12/16 17:30 (Heparin Central Flush) 500 units UNSCH IVF 09/12/16 17:30 (Hemorrhoidal Hc Supp) 25 mg BID RECTAL 09/12/16 21:00 09/16/16 08:42 (Lactinex Pkt) 1 gm TID PO 09/13/16 09:00 09/16/16 12:29 (Metamucil Smooth Texture Sf/ Gf Pkt) 1 pkt BID PO 09/13/16 21:00 09/16/16 08:41 (Levaquin) 500 mg DAILY PO 09/16/16 13:00 09/20/16 23:00 09/16/16 13:10 Assessment and Plan Problem List: (1) Thyroid mass of unclear etiology Status: Chronic Plan: Followed by Dr. Galeana. (2) Hypokalemia Status: Acute Plan: Now repleted to 4.1 Will decrease supplemental K+ to 30 meq QD and monitor labs. (3) Sepsis Status: Acute Plan: ID consult appreciated. Feeling better today. Changed to PO levaquin. If tolerated she can be DC'd in a.m. with an additional 5 days of abx, per Dr. Dacosta's notes. (4) Abnormal LFTs (liver function tests) Status: Acute Plan: May be due to chemotherapy. Dr. Galeana following (5) Breast cancer Status: Acute Plan: Dr. Galeana consult appreciated. Problem Qualifiers (1) Sepsis: Qualified Code: A41.9 - Sepsis, due to unspecified organism (2) Breast cancer: Qualified Code: C50.511 - Malignant neoplasm of lower-outer quadrant of right female breast Carmen Calvillo Sep 16, 2016 16:24
[2016-09-17 00:21] VITALS: O2SAT 98
[2016-09-17 02:08] VITALS: BP 112/78; PULSE 88; RESP 20; TEMP 97.4
[2016-09-17 04:00] VITALS: BP 104/66; PULSE 94; RESP 20; TEMP 98.6; O2SAT 98
[2016-09-17 05:30] LABS: AUTOMATED NEUTROPHIL # 9.9 TH/MM3 (1.8-7.7); BASOPHIL % 0.3 % (0.0-2.0); HEMATOCRIT 29.7 % (35.0-46.0); LYMPH % 11.2 % (9.0-44.0); LYMPHOCYTE # 1.4 TH/MM3 (1.0-4.8); MEAN CELL VOLUME 85.2 FL (80.0-100.0); MEAN CORPUSCULAR HEMOGLOBIN 29.7 PG (27.0-34.0); MEAN CORPUSCULAR HGB CONC 34.8 % (32.0-36.0); MONO % 9.3 % (0.0-8.0); NEUT % 79.2 % (16.0-70.0); PLATELET COUNT 121 TH/MM3 (150-450); RED BLOOD COUNT 3.49 MIL/MM3 (4.00-5.30); RED CELL DISTRIBUTION WIDTH 13.4 % (11.6-17.2); WHITE BLOOD COUNT 12.6 TH/MM3 (4.0-11.0)
[2016-09-17 05:34] LABS: HEMO FLAGS AUTO DIFF
[2016-09-17 05:49] LABS: ANION GAP 9 MEQ/L (5-15); AST (GOT) 50 U/L (15-37); BICARBONATE 23.7 MEQ/L (21.0-32.0); BLOOD UREA NITROGEN 8 MG/DL (7-18); CHLORIDE 106 MEQ/L (98-107); GLOMERULAR FILTRATION RATE 83 ML/MIN (>89); POTASSIUM 3.9 MEQ/L (3.5-5.1); SODIUM (NA) 139 MEQ/L (136-145)
[2016-09-17 05:52] LABS: ALKALINE PHOSPHATASE 156 U/L (45-117); ALT (GPT) 116 U/L (10-53); TOTAL BILIRUBIN ADULT 0.2 MG/DL (0.2-1.0)
[2016-09-17 06:41] LABS: PLATELET ESTIMATE SMEAR LOW (NORMAL); PLATELET MORPHOLOGY NORMAL (NORMAL); SCAN/DIFF AUTO DIFF CONFIRMED
[2016-09-17] MEDS: DOCUSATE SODIUM 100 MG CAP PO SCH (07:19)
[2016-09-17 08:00] VITALS: BP 104/62; PULSE 91; RESP 20; TEMP 98.1; O2SAT 96
[2016-09-17] MEDS: ENOXAPARIN SODIUM 40 MG/0.4 ML SYRINGE SQ SCH (08:00)
[2016-09-17] MEDS ORDERED: PREPCRE RECTAL (08:29)
[2016-09-17] MEDS ORDERED: Hydrocortisone Supp RECTAL (08:29)
[2016-09-17] MEDS ORDERED: POTA-243 PO (08:34)
--- NOTE | 2016-09-17 08:37 | HHI.DS ---
Discharge Summary Admission Date Sep 14, 2016 at 12:03 Discharge Date: Sep 17, 2016 Admitting Diagnosis Sepsis (Respiratory Source) (1) Pneumonia Diagnosis: Principal (2) Hypokalemia Diagnosis: Secondary (3) Breast cancer Diagnosis: Secondary (4) Abnormal LFTs (liver function tests) Diagnosis: Secondary Brief History This is a very pleasant 40 y/o [place] female who presented to the ED with SOB, fever and cough. She was diagnosed with right breast cancer in 07/2016 and has been under treatment by Dr. Galeana with chemotherapy and neulasta for both the breast cancer. The patient states she is also being followed by Dr. Galeana for a thyroid nodule. Upon admission she was febrile up to 101.6. She has a very poor appetite and has pain with swallowing, so is not drinking and eating as she usually does. She has been admitted for further evaluation and management. CBC/BMP: 09/17/16 0515 09/17/16 0515 Significant Findings Laboratory Tests Test 09/14/16 09/15/16 09/16/16 09/17/16 13:30 06:00 06:05 05:15 Vancomycin Level Trough 18.0 MCG/ML (5.0-10.0) Red Blood Count 3.38 MIL/MM3 3.36 MIL/MM3 3.49 MIL/MM3 (4.00-5.30) (4.00-5.30) (4.00-5.30) Hemoglobin 10.0 GM/DL 9.8 GM/DL 10.3 GM/DL (11.6-15.3) (11.6-15.3) (11.6-15.3) Hematocrit 28.7 % 29.2 % 29.7 % (35.0-46.0) (35.0-46.0) (35.0-46.0) Platelet Count 130 TH/MM3 121 TH/MM3 121 TH/MM3 (150-450) (150-450) (150-450) Neutrophils (%) (Auto) 73.5 % 75.7 % 79.2 % (16.0-70.0) (16.0-70.0) (16.0-70.0) Monocytes (%) (Auto) 9.5 % (0.0-8.0) 9.4 % (0.0-8.0) 9.3 % (0.0-8.0) Chloride Level 108 MEQ/L (98-107) Blood Urea Nitrogen 5 MG/DL (7-18) Calcium Level 8.1 MG/DL 8.3 MG/DL (8.5-10.1) (8.5-10.1) White Blood Count 12.6 TH/MM3 (4.0-11.0) Neutrophils # (Auto) 9.9 TH/MM3 (1.8-7.7) Monocytes # (Auto) 1.2 TH/MM3 (0-0.9) Platelet Estimate LOW (NORMAL) Basophilic Stippling FAINT (NORMAL) Estimat Glomerular Filtration 83 ML/MIN (>89) Rate Aspartate Amino Transf 50 U/L (15-37) (AST/SGOT) Alanine Aminotransferase 116 U/L (10-53) (ALT/SGPT) Alkaline Phosphatase 156 U/L (45-117) Albumin 3.3 GM/DL (3.4-5.0) Imaging Last Impressions Chest X-Ray 09/13/16 0000 Signed Impressions: Service Date/Time: Tuesday, September 13, 2016 17:20 - CONCLUSION: 1. Minimal cardiomegaly. 2. Minimal central pulmonary vascular congestion. Dedrick Napier MD Gall Bladder Ultrasound 09/11/16 0000 Signed Impressions: Service Date/Time: Sunday, September 11, 2016 18:09 - CONCLUSION: 1. Gallstones in gallbladder. No biliary ductal dilatation. Small cyst right lobe liver. No free fluid. Bennie Ivy MD Chest CT 09/11/16 0000 Signed Impressions: Service Date/Time: Sunday, September 11, 2016 16:15 - CONCLUSION: 1. Minimal air-space disease as described above. 2. There is no evidence for central pulmonary emboli. 3. Gallstones in a small contracted gallbladder. Lopez Spangler MD FACR PE at Discharge GENERAL: Well-nourished, well-developed patient. SKIN: Warm and dry. HEAD: Normocephalic. EYES: No scleral icterus. No injection or drainage. NECK: Supple, trachea midline. No JVD or lymphadenopathy. CARDIOVASCULAR: Regular rate and rhythm without murmurs, gallops, or rubs. RESPIRATORY: Breath sounds equal bilaterally. No accessory muscle use. Occ rhonchi, pleuritic chest discomfort with cough/deep insp. GASTROINTESTINAL: Abdomen soft, non-tender, nondistended. EXTREMITIES: No cyanosis, or edema. NEUROLOGICAL: Awake, alert, and oriented x 3. Non-focal. Hospital Course Admitted with SOB found to have PNA, she was evaluated by ID and antibiotics prescribed. She is undergoing chemotherapy for breast cancer and had received neulasta after her last chemo. Dr. Galeana was consulted to assist with treatment from an oncology standpoint. On 09/17 she was deemed stable for discharge and discharged home with outpatient followup. Pt Condition on Discharge: Stable Discharge Disposition: Discharge Home Discharge Instructions DIET: Follow Instructions for: As Tolerated, No Restrictions Activities you can perform: Regular-No Restrictions Activities to avoid: Strenuous Activity New Medications: Levofloxacin (Levaquin) 500 Mg Tab 500 MG PO DAILY Infection #5 Ref 0 TAB Uhdmufuex-Ydnegjzaurqnp-Eoleulwq Topical (Preparation H Topical) 1-0.25-14.4-15 % Cre 1 APPLIC RECTAL QID PRN ITCHING #1 Ref 1 TUBE Potassium Chloride ER (Klor-Con 10) 10 Meq Tab 30 MEQ PO DAILY replacement Days 30 TAB ([Hydrocortisone Supp]) 25 MG SUPP 25 MG RECTAL BID Hemorrhoids #20 SUPP Continued Medications: Hydrochlorothiazide (Hydrochlorothiazide) 12.5 Mg Tab 12.5 MG PO DAILY #30 Ref 0 TAB Metoprolol Succinate ER 24 HR (Metoprolol Succinate ER 24 HR) 50 Mg Tab 50 MG PO DAILY #30 Ref 0 TAB Ondansetron (Zofran) 4 Mg Tab 4 MG PO Q8HR PRN NAUSEA OR VOMITING Ref 0 TAB Prochlorperazine Maleate (Prochlorperazine Maleate) 10 Mg Tab 10 MG PO Q6H PRN NAUSEA OR VOMITING Ref 0 TAB Carmen Calvillo Sep 17, 2016 08:36
[2016-09-17] MEDS ORDERED: POTASSIUM CHLORIDE 10 MEQ CONTROLLED RELEASE TAB PO SCH (09:00)
[2016-09-17] MEDS: SODIUM CHLORIDE 0.9% FLUSH 5 ML FLUSH FLUSH SCH (09:02)
[2016-09-17] MEDS: LEVOFLOXACIN 500 MG TAB PO SCH (09:04)
[2016-09-17] MEDS: PSYLLIUM FIBER SF/GF 6 GM POWD PKT PO SCH (09:04)
[2016-09-17] MEDS: LACTOBACILLUS ACIDOPHILUS 1 GM PACKET PO SCH (09:04)
[2016-09-17] MEDS: HYDROCORTISONE ACETATE 25 MG SUPP RECTAL SCH (09:04)
--- NOTE | 2016-09-17 09:05 | HHI.FF ---
Face to Face Verification Diagnosis: (1) Sepsis (2) Breast cancer (3) Pneumonia (4) Thyroid mass of unclear etiology (5) Abnormal LFTs (liver function tests) (6) Hypokalemia (7) Chemotherapy-induced thrombocytopenia (8) Diarrhea Home Health Nursing Order: Medical education Signs/symptoms of disease process Medication education-adverse effect Nursing assessment with vital signs Home Health Aide Order: To Assist In: Bathing and personal care, nurse anesthetist and meal prep I have seen patient John Encinas on 09/17/16. My clinical findings support the need for the requested home health care services because: Infection w/ risk of complications I certify that my clinical findings support that this patient is homebound because: Unsafe to leave home unassisted Carmen Calvillo Sep 17, 2016 09:04
[2016-09-17 09:58] VITALS: PULSE 92
== END 2016-09-17 11:15 | disposition home or self-care (01) | DRG 871 ==
LOC: NEPC 21:52 → INTOOBSV 09-11 04:50 → NEDA 09-11 04:50 → NEDH 09-11 10:36 → N04B 09-11 16:40 → OBSVTOIN 09-14 12:03
PROVIDERS: ADMIT Family Medicine; ATTEND Family Medicine
DX: A41.9 Sepsis, unspecified organism (principal); J18.9 Pneumonia, unspecified organism; D69.59 Other secondary thrombocytopenia; C50.911 Malignant neoplasm of unspecified site of right female breast; E87.1 Hypo-osmolality and hyponatremia; C73 Malignant neoplasm of thyroid gland; D64.81 Anemia due to antineoplastic chemotherapy; E87.6 Hypokalemia; R94.5 Abnormal results of liver function studies; Z79.899 Other long term (current) drug therapy; Z92.21 Personal history of antineoplastic chemotherapy; I10 Essential (primary) hypertension; R19.7 Diarrhea, unspecified
CPT/HCPCS: 71010; 71020; 71260; 76705; 80048; 80053; 80076; 80202; 81001; 83036; 83605; 83735; 84132; 84484; 85007; 85025; 85027; 87040; 87070; 87086; 87205; 87449; 87493; 87804; 93005; 96365; 96366; G0378; J0692; J1642; J1650; J2543; J3370; J7050; Q9967

== ENCOUNTER 2016-09-29 20:17 | Emergency (ER) | payer OTHER ==
[~2016-09-29] VITALS: Ht 157.5 cm; Wt 63.5 kg
[~2016-09-29 20:17] MED LIST changes: +Hydrocortisone Supp RECTAL; +LEVA500T PO; +POTA-243 PO; +PREPCRE RECTAL; +PROC10TA PO; +ZOFR4TAB PO
[2016-09-29 20:20] VITALS: BP 109/58; PULSE 82; RESP 18; TEMP 98.1; O2SAT 97
[2016-09-29 21:06] VITALS: BP 96/56; PULSE 89; RESP 18; O2SAT 98
[2016-09-29] MEDS ORDERED: K-TA10TA PO (21:15)
--- NOTE | 2016-09-29 21:30 | PD ---
HPI Chief Complaint: Fever Time Seen by Provider: 21:01 Travel History International Travel<30 days: No Contact w/Intl Traveler<30days: No Traveled to known affect area: No History of Present Illness HPI 40-year-old female complains of fever, headache, back pain and shortness of breath. Patient states that the symptoms started last night. Patient states that the temperature was 99.4 last night and 99.9 this morning. Patient took Aleve for the pain and headache. Patient states that she has aching headache diffuse over the head. Patient denies any visual change. Patient denies any neck pain. Patient states the cough is intermittent dry cough. Patient states that she has aching back pain and low back area since this morning. Patient denies any pain radiation. Patient has history of breast cancer on chemotherapy and Neulasta. Last chemotherapy was 3 days ago and Neulasta was 2 days ago. Patient was admitted on September 14 and discharge September 17 for pneumonia. Patient was given prescription for Levaquin. Patient finished Levaquin a week ago. Patient states that the cough got better after the medication. PFSH Past Medical History Cancer: Yes (BREAST AND THYROID) Cardiovascular Problems: No Chemotherapy: Yes (09/05/16) Diabetes: No Endocrine: No Genitourinary: No Hepatitis: No Hiatal Hernia: No Hypertension: Yes Immune Disorder: No Implanted Vascular Access Dvce: Yes (PORT LEFT CHEST) Musculoskeletal: No Neurologic: No Psychiatric: No Reproductive: No Respiratory: No Thyroid Disease: No ?: Not : 1 Para: 0 Miscarriage: 0 : 0 Past Surgical History Abdominal Surgery: Yes (appy) AICD: No Appendectomy: Yes Section: Yes Ear Surgery: Yes (r ear tympanic) Gynecologic Surgery: Yes (c section) Joint Replacement: No Pacemaker: No Other Surgery: Yes (PORT PLACED LEFT) Social History Alcohol Use: No Tobacco Use: No Substance Use: No Allergies-Medications (Allergen,Severity, Reaction): Coded Allergies: Hydrocodone (Verified Allergy, Severe, Shortness of Breath, 09/29/16) Oxycodone (Verified Allergy, Severe, Shortness of Breath, 09/29/16) Methocarbamol (Verified Adverse Reaction, Severe, PRESSURE ON CHEST, ) Reported Meds & Prescriptions Reported Meds & Active Scripts Active Preparation H Topical (Wfzicgkdx-Saxtdglqoygfc-Afzbznqd Topical) 1-0.25-14.4-15 % Cre 1 Applic RECTAL QID PRN [Hydrocortisone Supp] 25 MG Supp 25 Mg RECTAL BID Reported K-Tab (Potassium Chloride) 10 Meq Tab 10 Meq PO TID Zofran (Ondansetron HCl) 4 Mg Tab 4 Mg PO Q8HR PRN Prochlorperazine Maleate 10 Mg Tab 10 Mg PO Q6H PRN Hydrochlorothiazide 12.5 Mg Tab 12.5 Mg PO DAILY Metoprolol Succinate ER 24 HR (Metoprolol Succinate) 50 Mg Tab 50 Mg PO DAILY Review of Systems General / Constitutional: Positive: Fever Eyes: No: Visual changes HENT: Positive: Headaches Cardiovascular: No: Chest Pain or Discomfort Respiratory: No: Shortness of Breath Gastrointestinal: No: Abdominal Pain Genitourinary: No: Dysuria Musculoskeletal: No: Pain Skin: No Rash Neurologic: No: Weakness Psychiatric: No: Depression Endocrine: No: Polydipsia Hematologic/Lymphatic: No: Easy Bruising Physical Exam Narrative GENERAL: Well-nourished, well-developed patient. SKIN: Warm and dry. HEAD: Normocephalic. EYES: No scleral icterus. No injection or drainage. NECK: Supple, trachea midline. No JVD or lymphadenopathy. CARDIOVASCULAR: Regular rate and rhythm without murmurs, gallops, or rubs. RESPIRATORY: Breath sounds equal bilaterally. No accessory muscle use. GASTROINTESTINAL: Abdomen soft, non-tender, nondistended. MUSCULOSKELETAL: No cyanosis, or edema. BACK: Nontender without obvious deformity. No CVA tenderness. Neurologic exam normal. Data Data Last Documented VS Vital Signs Date Time Temp Pulse Resp B/P Pulse Ox O2 Delivery O2 Flow Rate FiO2 09/29/16 21:06 89 18 96/56 98 Room Air 09/29/16 20:20 98.1 Orders Complete Blood Count With Diff (09/29/16 21:21) Comprehensive Metabolic Panel (09/29/16 21:21) Blood Culture (09/29/16 21:21) Urinalysis - C+S If Indicated (09/29/16 21:21) Influenzae A/B Antigen (09/29/16 21:21) Chest, Single Ap (09/29/16 21:21) Iv Access Insert/Monitor (09/29/16 21:21) Ecg Monitoring (09/29/16 21:21) Oximetry (09/29/16 21:21) Lactic Acid (09/29/16 21:21) Labs Laboratory Tests Test 09/29/16 09/29/16 21:20 21:35 Urine Color LIGHT-YELLOW Urine Turbidity CLEAR Urine pH 5.5 Urine Specific [place] 1.005 Urine Protein NEG mg/dL Urine Glucose (UA) NEG mg/dL Urine Ketones NEG mg/dL Urine Occult Blood MOD Urine Nitrite NEG Urine Bilirubin NEG Urine Urobilinogen LESS THAN 2.0 MG/DL Urine Leukocyte Esterase TRACE Urine RBC 3 /hpf Urine WBC 2 /hpf Urine Squamous Epithelial <1 /hpf Cells Microscopic Urinalysis Comment CULT NOT INDICATED White Blood Count 13.8 TH/MM3 Red Blood Count 3.60 MIL/MM3 Hemoglobin 10.9 GM/DL Hematocrit 31.7 % Mean Corpuscular Volume 88.0 FL Mean Corpuscular Hemoglobin 30.2 PG Mean Corpuscular Hemoglobin 34.3 % Concent Red Cell Distribution Width 16.5 % Platelet Count 118 TH/MM3 Mean Platelet Volume 8.1 FL Neutrophils (%) (Auto) 84.6 % Lymphocytes (%) (Auto) 13.3 % Monocytes (%) (Auto) 1.0 % Eosinophils (%) (Auto) 0.5 % Basophils (%) (Auto) 0.6 % Neutrophils # (Auto) 11.7 TH/MM3 Lymphocytes # (Auto) 1.8 TH/MM3 Monocytes # (Auto) 0.1 TH/MM3 Eosinophils # (Auto) 0.1 TH/MM3 Basophils # (Auto) 0.1 TH/MM3 CBC Comment AUTO DIFF Sodium Level 139 MEQ/L Potassium Level 3.3 MEQ/L Chloride Level 101 MEQ/L Carbon Dioxide Level 28.8 MEQ/L Anion Gap 9 MEQ/L Blood Urea Nitrogen 19 MG/DL Creatinine 0.83 MG/DL Estimat Glomerular Filtration 77 ML/MIN Rate Random Glucose 109 MG/DL Lactic Acid Level 1.2 mmol/L Calcium Level 8.9 MG/DL Total Bilirubin 0.9 MG/DL Aspartate Amino Transf 22 U/L (AST/SGOT) Alanine Aminotransferase 51 U/L (ALT/SGPT) Alkaline Phosphatase 120 U/L Total Protein 7.7 GM/DL Albumin 3.8 GM/DL MDM Medical Decision Making Medical Screen Exam Complete: Yes Emergency Medical Condition: Yes Interpretation(s) Last Impressions Chest X-Ray 09/29/162120 Signed Impressions: Service Date/Time: Thursday, September 29, 2016 21:32 - CONCLUSION: No acute disease. Dax Pantoja MD 22:32 PM. CBC WBC 13.8. Hemoglobin 10.9 hematocrit 31.7. Platelets 118. 84 neutrophil. Sodium 139 potassium 3.3. BUN 19. Lactic acid 1.2. Alkaline phosphatase 120. UA is negative. Differential Diagnosis Differential diagnosis including viral syndrome, bronchitis, pneumonia, UTI, sepsis. Narrative Course 40-year-old female with fever, headache, dry cough, low back pain. History of breast cancer on chemotherapy and Neulasta. 22:41 PM. I spoke with Dr. Galeana ,advised to follow with her in the office. Return if persistent or worsening of the symptoms. Diagnosis Primary Impression: Viral syndrome Patient Instructions: General Instructions Additional Instructions: Ibuprofen for aching pain. Follow-up with personal physician. Return immediately if persistent fever, worsening of the symptoms. Med/Other Pt SpecificInfo: No Change to Meds Disposition: 01 DISCHARGE HOME Condition: Stable Rafael Duffy MD Sep 29, 2016 21:29
--- NOTE | 2016-09-29 21:53 | RADRPT ---
EXAM DATE/TIME: 09/29/2016 21:32 [facility] COMPARISON: CHEST SINGLE AP, September 11, 2016, 1:24. INDICATIONS : Cough MEDICAL HISTORY : Right breast cancer. Carpal tunnel. Hypertension. Chemotherapy. SURGICAL HISTORY : Infusa port,Appendectomy. section. Right ear surgery. Right breast biopsy. ENCOUNTER: Initial ACUITY: 1 day PAIN SCORE: 0/10 LOCATION: Bilateral chest FINDINGS: A single view of the chest demonstrates the lungs to be symmetrically aerated without evidence of mas s, infiltrate or effusion. Heart and the upper limits of normal in size. Left-sided portacatheter un changed. The cardiomediastinal contours are unremarkable. Osseous structures are intact. CONCLUSION: No acute disease. Dax Pantoja MD on September 29, 2016 at 21:51 Board Certified Radiologist. This report was verified electronically.
[2016-09-29 22:03] LABS: AUTOMATED NEUTROPHIL # 11.7 TH/MM3 (1.8-7.7); BASOPHIL # 0.1 TH/MM3 (0-0.2); BASOPHIL % 0.6 % (0.0-2.0); EOSINOPHIL # 0.1 TH/MM3 (0-0.4); EOSINOPHIL % 0.5 % (0.0-4.0); HEMATOCRIT 31.7 % (35.0-46.0); LYMPH % 13.3 % (9.0-44.0); LYMPHOCYTE # 1.8 TH/MM3 (1.0-4.8); MEAN CORPUSCULAR HEMOGLOBIN 30.2 PG (27.0-34.0); MEAN CORPUSCULAR HGB CONC 34.3 % (32.0-36.0); NEUT % 84.6 % (16.0-70.0); PLATELET COUNT 118 TH/MM3 (150-450); RED CELL DISTRIBUTION WIDTH 16.5 % (11.6-17.2); WHITE BLOOD COUNT 13.8 TH/MM3 (4.0-11.0)
[2016-09-29 22:04] LABS: HEMO FLAGS AUTO DIFF
[2016-09-29 22:20] LABS: ALT (GPT) 51 U/L (10-53); ANION GAP 9 MEQ/L (5-15); AST (GOT) 22 U/L (15-37); BICARBONATE 28.8 MEQ/L (21.0-32.0); BLOOD UREA NITROGEN 19 MG/DL (7-18); CHLORIDE 101 MEQ/L (98-107); GLOMERULAR FILTRATION RATE 77 ML/MIN (>89); POTASSIUM 3.3 MEQ/L (3.5-5.1); SODIUM (NA) 139 MEQ/L (136-145)
[2016-09-29 22:21] LABS: BLOOD, URINE MOD (NEG); COMMENT (UR) CULT NOT INDICATED; CULTURE IF INDICATED CULT NOT INDICATED; GLUCOSE,URINE NEG (NEG); KETONE, URINE NEG (NEG); NITRITE,URINE NEG (NEG); PH, URINE 5.5 (5.0-8.5); SQUAMOUS EPITHELIAL CELL URINE <1 /hpf (0-5); URINE COLOR LIGHT-YELLOW (YELLW/STRAW)
[2016-09-29 22:26] LABS: ALKALINE PHOSPHATASE 120 U/L (45-117); TOTAL BILIRUBIN ADULT 0.9 MG/DL (0.2-1.0)
[2016-09-29 22:46] VITALS: BP 100/64
[2016-09-29 22:46] LABS: BANDS 8 % (0-6); EOSINOPHILS 2 % (0-4); METAMYELOCYTES 12 % (0-1); NEUTROPHIL # MANUAL DIFF 11.9 TH/MM3 (1.8-7.7); PLATELET ESTIMATE SMEAR LOW (NORMAL); PLATELET MORPHOLOGY NORMAL (NORMAL); POLYS (SEG NEUTROPHILS) 66 % (16-70); SCAN/DIFF FINAL DIFF MANUAL; WBC DIFF SAMPLE 100
== END 2016-09-29 22:46 | disposition home or self-care (01) ==
LOC: NEPC 20:17
DX: B34.9 Viral infection, unspecified (principal); I10 Essential (primary) hypertension; Z85.3 Personal history of malignant neoplasm of breast
CPT/HCPCS: 71010; 80053; 81001; 83605; 85007; 85027; 87040; 87804; 99285

== ENCOUNTER 2016-11-28 15:21 | Emergency (ER) | payer OTHER ==
[~2016-11-28] VITALS: Ht 157.5 cm; Wt 75.0 kg
[~2016-11-28 15:21] MED LIST changes: +K-TA10TA PO; -LEVA500T PO; -POTA-243 PO
--- NOTE | 2016-11-28 15:44 | PD ---
HPI Chief Complaint: tachycardia Time Seen by Provider: 15:32 Travel History International Travel<30 days: No Contact w/Intl Traveler<30days: No Traveled to known affect area: No History of Present Illness HPI The patient is a 40-year-old female who presents to the emergency department from the regional oncology office, Dr. Galeana's office, for elevated heart rate. The patient has a history of right sided breast cancer, ductal carcinoma according to the patient, and was receiving Taxol earlier today when she developed tachycardia. The patient states she's had multiple treatments in the past, this was going to be her last treatment. The patient developed a heart rate near 150 that cannot be broken with Demerol, Benadryl, and IV fluids. The patient complained of mild shortness of breath with her palpitations, denied any chest pain. She denied any nausea, vomiting, diarrhea, or abdominal pain. The patient was advised to have a vagal maneuver by EMS, they state her heart rate came down 80, and then elevated to 120. The patient denies any known history of pulmonary embolism or DVT. She does state she was admitted several months ago for pneumonia, denies any recent prolonged travel or recent surgery. Symptoms are moderate, slightly alleviated with IV fluids and Valsalva maneuver, and possibly exacerbated by chemotherapy treatment earlier today. PFSH Past Medical History Cancer: Yes (BREAST AND THYROID) Cardiovascular Problems: No Chemotherapy: Yes (09/05/16) Diabetes: No Endocrine: No Genitourinary: No Hepatitis: No Hiatal Hernia: No Hypertension: Yes Immune Disorder: No Implanted Vascular Access Dvce: Yes (PORT LEFT CHEST) Musculoskeletal: No Neurologic: No Psychiatric: No Reproductive: No Respiratory: No Thyroid Disease: No : 1 Para: 0 Miscarriage: 0 : 0 Past Surgical History Abdominal Surgery: Yes (appy) AICD: No Appendectomy: Yes Section: Yes Ear Surgery: Yes (r ear tympanic) Gynecologic Surgery: Yes (c section) Joint Replacement: No Pacemaker: No Other Surgery: Yes (PORT PLACED LEFT) Social History Alcohol Use: No Tobacco Use: No Substance Use: No Allergies-Medications (Allergen,Severity, Reaction): Coded Allergies: Hydrocodone (Verified Allergy, Severe, Shortness of Breath, 09/29/16) Oxycodone (Verified Allergy, Severe, Shortness of Breath, 09/29/16) Methocarbamol (Verified Adverse Reaction, Severe, PRESSURE ON CHEST, ) Reported Meds & Prescriptions Reported Meds & Active Scripts Active Reported Lido-Prilo Roman Pack 2.5-2.5 % (Lidocaine-Prilocaine) 1 Kit Kit 1 Applic TOPICAL DAILY PRN Zofran (Ondansetron HCl) 4 Mg Tab 4 Mg PO Q8HR PRN Prochlorperazine Maleate 10 Mg Tab 10 Mg PO Q6H PRN Hydrochlorothiazide 12.5 Mg Tab 12.5 Mg PO DAILY Metoprolol Succinate ER 24 HR (Metoprolol Succinate) 50 Mg Tab 50 Mg PO DAILY Review of Systems Except as stated in HPI: all other systems reviewed are Neg General / Constitutional: No: Fever Cardiovascular: Positive: Palpitations, Tachycardia, No: Chest Pain or Discomfort, Diaphoresis Respiratory: Positive: Shortness of Breath Gastrointestinal: No: Nausea, Vomiting, Abdominal Pain Musculoskeletal: No: Weakness, Edema Neurologic: No: Dizziness Physical Exam Narrative GENERAL: Awake, slightly lethargic, pleasant 40-year-old female who appears her stated age and is in no acute respiratory distress. SKIN: Focused skin assessment warm/dry. HEAD: Atraumatic. Normocephalic. EYES: Pupils equal and round. No scleral icterus. No injection or drainage. ENT: No nasal bleeding or discharge. Mucous membranes pink and moist. NECK: Trachea midline. No JVD. CARDIOVASCULAR: Regular, tachycardic with a heart rate of 120. [address] left chest wall. RESPIRATORY: No accessory muscle use. Clear to auscultation. Breath sounds equal bilaterally. GASTROINTESTINAL: Abdomen soft, non-tender, nondistended. No rebound tenderness. MUSCULOSKELETAL: No obvious deformities. No clubbing. No cyanosis. No edema. Calves are soft bilaterally. NEUROLOGICAL: Awake and alert. No obvious cranial nerve deficits. Motor grossly within normal limits. Normal speech. PSYCHIATRIC: Appropriate mood and affect; insight and judgment normal. Data Data Last Documented VS Vital Signs Date Time Temp Pulse Resp B/P Pulse Ox O2 Delivery O2 Flow Rate FiO2 11/28/16 17:16 100 18 132/89 98 Room Air Orders Complete Blood Count With Diff (11/28/16 15:32) Comprehensive Metabolic Panel (11/28/16 15:32) Creatine Kinase (Cpk) (11/28/16 15:32) Troponin I (11/28/16 15:32) Chest, Single Ap (11/28/16 ) Sodium Chlor 0.9% 1000 Ml Inj (Ns 1000 M (11/28/16 15:45) Electrocardiogram (11/28/16 ) Thyroid Stimulating Hormone (11/28/16 15:38) Ct Pulmonary Angiogram (11/28/16 ) Iohexol 350 Inj (Omnipaque 350 Inj) (11/28/16 17:07) Labs Laboratory Tests Test 11/28/16 11/28/16 15:50 16:15 Sodium Level 139 MEQ/L Potassium Level 3.8 MEQ/L Chloride Level 105 MEQ/L Carbon Dioxide Level 22.2 MEQ/L Anion Gap 12 MEQ/L Blood Urea Nitrogen 12 MG/DL Creatinine 1.21 MG/DL Estimat Glomerular Filtration 50 ML/MIN Rate Random Glucose 163 MG/DL Calcium Level 8.5 MG/DL Total Bilirubin 0.4 MG/DL Aspartate Amino Transf 59 U/L (AST/SGOT) Alanine Aminotransferase 30 U/L (ALT/SGPT) Alkaline Phosphatase 65 U/L Total Creatine Kinase 182 U/L Troponin I LESS THAN 0.02 NG/ML Total Protein 7.8 GM/DL Albumin 3.6 GM/DL Thyroid Stimulating Hormone 0.974 uIU/ML 3rd Gen White Blood Count 7.5 TH/MM3 Red Blood Count 3.84 MIL/MM3 Hemoglobin 12.0 GM/DL Hematocrit 35.8 % Mean Corpuscular Volume 93.0 FL Mean Corpuscular Hemoglobin 31.2 PG Mean Corpuscular Hemoglobin 33.5 % Concent Red Cell Distribution Width 15.8 % Platelet Count 215 TH/MM3 Mean Platelet Volume 8.7 FL Neutrophils (%) (Auto) 92.8 % Lymphocytes (%) (Auto) 6.4 % Monocytes (%) (Auto) 0.7 % Eosinophils (%) (Auto) 0.0 % Basophils (%) (Auto) 0.1 % Neutrophils # (Auto) 6.9 TH/MM3 Lymphocytes # (Auto) 0.5 TH/MM3 Monocytes # (Auto) 0.1 TH/MM3 Eosinophils # (Auto) 0.0 TH/MM3 Basophils # (Auto) 0.0 TH/MM3 CBC Comment DIFF FINAL Differential Comment MDM Medical Decision Making Medical Screen Exam Complete: Yes Emergency Medical Condition: Yes Medical Record Reviewed: Yes Interpretation(s) EKG reveals sinus tachycardia with a heart rate of 108. Nonspecific T wave changes. Last Impressions Chest X-Ray 11/28/16 0000 Signed Impressions: Service Date/Time: November 15:43 - CONCLUSION: No acute disease. Anthony Floyd MD CT Angiography 11/28/16 0000 Signed Impressions: Service Date/Time: November 16:54 - CONCLUSION: 1. No evidence of pulmonary emboli. 2. Cholelithiasis. Anthony Floyd MD Laboratory Tests Test 11/28/16 11/28/16 15:50 16:15 Sodium Level 139 MEQ/L Potassium Level 3.8 MEQ/L Chloride Level 105 MEQ/L Carbon Dioxide Level 22.2 MEQ/L Anion Gap 12 MEQ/L Blood Urea Nitrogen 12 MG/DL Creatinine 1.21 MG/DL Estimat Glomerular Filtration 50 ML/MIN Rate Random Glucose 163 MG/DL Calcium Level 8.5 MG/DL Total Bilirubin 0.4 MG/DL Aspartate Amino Transf 59 U/L (AST/SGOT) Alanine Aminotransferase 30 U/L (ALT/SGPT) Alkaline Phosphatase 65 U/L Total Creatine Kinase 182 U/L Troponin I LESS THAN 0.02 NG/ML Total Protein 7.8 GM/DL Albumin 3.6 GM/DL Thyroid Stimulating Hormone 0.974 uIU/ML 3rd Gen White Blood Count 7.5 TH/MM3 Red Blood Count 3.84 MIL/MM3 Hemoglobin 12.0 GM/DL Hematocrit 35.8 % Mean Corpuscular Volume 93.0 FL Mean Corpuscular Hemoglobin 31.2 PG Mean Corpuscular Hemoglobin 33.5 % Concent Red Cell Distribution Width 15.8 % Platelet Count 215 TH/MM3 Mean Platelet Volume 8.7 FL Neutrophils (%) (Auto) 92.8 % Lymphocytes (%) (Auto) 6.4 % Monocytes (%) (Auto) 0.7 % Eosinophils (%) (Auto) 0.0 % Basophils (%) (Auto) 0.1 % Neutrophils # (Auto) 6.9 TH/MM3 Lymphocytes # (Auto) 0.5 TH/MM3 Monocytes # (Auto) 0.1 TH/MM3 Eosinophils # (Auto) 0.0 TH/MM3 Basophils # (Auto) 0.0 TH/MM3 CBC Comment DIFF FINAL Differential Comment Differential Diagnosis Differential diagnosis includes pulmonary embolism, hyperthyroidism, Taxol side effect, dehydration, cardiomyopathy, electrolyte abnormality, pneumonia, sepsis. Narrative Course The patient's port was accessed, labs are drawn and sent, and the patient was placed on cardiac telemetry monitoring and continuous pulse oximetry monitoring. EKG was ordered and interpreted. Chest x-ray was obtained. CT pulmonary angiogram was ordered to rule out PE. TSH was sent to lab. Labs are unremarkable. TSH is normal. Electrolytes are within normal limits. CT pulmonary angiogram is negative for PE. The patient's heart rate came down into the 80s, her symptoms improved, and she wanted food and water to drink. The patient was evaluated by Dr. Galeana in the emergency department. The patient will be discharged home. Diagnosis Primary Impression: Tachycardia Additional Impression: Drug reaction Qualified Code: T88.7XXA - Drug reaction, initial encounter Additional Instructions: Follow-up with your primary physician and oncologist. Return if symptoms worsen or progress. Med/Other Pt SpecificInfo: No Change to Meds Disposition: 01 DISCHARGE HOME Condition: Stable Sanchez Arreola MD Nov 28, 2016 15:44
[2016-11-28] MEDS ORDERED: SODIUM CHLOR 0.9% 1000 ML INJ 1,000 ML IV ONE (15:45)
[2016-11-28 16:04] VITALS: BP 132/89; PULSE 119; RESP 18; O2SAT 100
--- NOTE | 2016-11-28 16:21 | RADRPT ---
EXAM DATE/TIME: 11/28/2016 15:43 [facility] COMPARISON: CHEST SINGLE AP, September 29, 2016, 21:32. INDICATIONS : Chest pain and heart palpitations. MEDICAL HISTORY : Right breast cancer. Carpal tunnel. Hypertension. Chemotherapy. SURGICAL HISTORY : Infusa port, Appendectomy. section. Right ear surgery. Right breast biopsy. ENCOUNTER: Initial ACUITY: 3 days PAIN SCORE: 3/10 LOCATION: Bilateral chest FINDINGS: A single view of the chest demonstrates the lungs to be symmetrically aerated without evidence of mas s, infiltrate or effusion. The cardiomediastinal contours are unremarkable. Osseous structures are intact. The left subclavian sultana catheter remains in place. There are multiple overlying electrocard iogram leads. CONCLUSION: No acute disease. Anthony Floyd MD on November 28, 2016 at 16:18 Board Certified Radiologist. This report was verified electronically.
[2016-11-28 16:38] LABS: ALKALINE PHOSPHATASE 65 U/L (45-117); ALT (GPT) 30 U/L (10-53); ANION GAP 12 MEQ/L (5-15); AST (GOT) 59 U/L (15-37); BICARBONATE 22.2 MEQ/L (21.0-32.0); BLOOD UREA NITROGEN 12 MG/DL (7-18); CHLORIDE 105 MEQ/L (98-107); CREATINE KINASE 182 U/L (26-192); GLOMERULAR FILTRATION RATE 50 ML/MIN (>89); POTASSIUM 3.8 MEQ/L (3.5-5.1); SODIUM (NA) 139 MEQ/L (136-145); TOTAL BILIRUBIN ADULT 0.4 MG/DL (0.2-1.0)
[2016-11-28 16:43] LABS: AUTOMATED NEUTROPHIL # 6.9 TH/MM3 (1.8-7.7); BASOPHIL % 0.1 % (0.0-2.0); HEMATOCRIT 35.8 % (35.0-46.0); HEMO FLAGS DIFF FINAL; LYMPH % 6.4 % (9.0-44.0); LYMPHOCYTE # 0.5 TH/MM3 (1.0-4.8); MEAN CORPUSCULAR HEMOGLOBIN 31.2 PG (27.0-34.0); MEAN CORPUSCULAR HGB CONC 33.5 % (32.0-36.0); MONO % 0.7 % (0.0-8.0); NEUT % 92.8 % (16.0-70.0); PLATELET COUNT 215 TH/MM3 (150-450); RED BLOOD COUNT 3.84 MIL/MM3 (4.00-5.30); RED CELL DISTRIBUTION WIDTH 15.8 % (11.6-17.2); WHITE BLOOD COUNT 7.5 TH/MM3 (4.0-11.0)
[2016-11-28] MEDS ORDERED: IOHEXOL 350 MG/ML 10 ML VIAL (for RAD DIAG) IV ONE (17:07)
[2016-11-28 17:16] VITALS: BP 132/89; O2SAT 98
--- NOTE | 2016-11-28 17:20 | RADRPT ---
EXAM DATE/TIME: 11/28/2016 16:54 [facility] COMPARISON: No previous studies available for comparison. INDICATIONS : Tachycardic and short of breath IV CONTRAST: 70 cc Omnipaque 350 (iohexol) IV RADIATION DOSE: 23.17 CTDIvol (mGy) MEDICAL HISTORY : Carcinoma, breast. Hypertension. Carcinoma, thyroid.Thyroid cancer, Currently on Chemo, SURGICAL HISTORY : Port. ENCOUNTER: Initial ACUITY: 1 day PAIN SCALE: 5/10 LOCATION: Bilateral chest TECHNIQUE: Volumetric scanning of the chest was performed using a pulmonary embolism protocol MIP images were re constructed. Using automated exposure control and adjustment of the mA and/or kV according to patien t size, radiation dose was kept as low as reasonably achievable to obtain optimal diagnostic quality images. FINDINGS: PULMONARY ARTERIES: No filling defects are seen in the pulmonary arteries through the segmental level. LUNGS: There is no consolidation or pneumothorax . No concerning pulmonary nodule is visualized. PLEURAE: There is no pleural thickening or pleural effusion. MEDIASTINUM: There is good visualization of the great vessels of the middle mediastinum. No evidence of mediastin al or hilar adenopathy/mass. MUSCULOSKELETAL: Within normal limits for patient age. MISCELLANEOUS: The visualized upper abdominal organs demonstrate no acute abnormality. There are densely calcified g allstones in the gallbladder. There is a small simple appearing cyst in the right lobe of the liver CONCLUSION: 1. No evidence of pulmonary emboli. 2. Cholelithiasis. Anthony Floyd MD on November 28, 2016 at 17:16 Board Certified Radiologist. This report was verified electronically.
[2016-11-28] MEDS ORDERED: LIDO1KIT30 TOPICAL (17:28)
[2016-11-28 18:59] VITALS: BP 113/81
--- NOTE | 2016-11-28 21:00 | EKG ---
Date Performed: 11/28/2016 Time Performed: 16:21:35 PTAGE: 40 years EKG: SINUS TACHYCARDIA NONSPECIFIC T-WAVE ABNORMALITY ABNORMAL RHYTHM ECG COMPARED TO PRIOR ELEC TROCARDIOGRAM, Rate has decreased. PREVIOUS TRACING : 11/28/2016 14.47 DOCTOR: Asif Kapoor Interpretating Date/Time 11/28/2016 21:00:12
== END 2016-11-28 19:07 | disposition home or self-care (01) ==
LOC: NEPE 15:21
DX: R00.0 Tachycardia, unspecified (principal); C50.911 Malignant neoplasm of unspecified site of right female breast; T45.1X5A Adverse effect of antineoplastic and immunosuppressive drugs, initial encounter; Y92.531 Health care provider office as the place of occurrence of the external cause
CPT/HCPCS: 71010; 71275; 80053; 82550; 84443; 84484; 85025; 93005; 99285; J7030; Q9967

== ENCOUNTER 2016-12-22 16:59 | Emergency (ER) | payer OTHER ==
[~2016-12-22] VITALS: Ht 157.5 cm; Wt 70.0 kg
[~2016-12-22 16:59] MED LIST changes: -Hydrocortisone Supp RECTAL; -K-TA10TA PO; +LIDO1KIT30 TOPICAL; -PREPCRE RECTAL
[2016-12-22 17:01] VITALS: BP 148/84; PULSE 68; RESP 20; TEMP 97.5; O2SAT 100
[2016-12-22] MEDS ORDERED: SODIUM CHLOR 0.9% 1000 ML INJ 1,000 ML IV ONE (18:03)
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
[2016-12-22] MEDS ORDERED: ONDANSETRON HCL 4 MG/2 ML VIAL IVP ONE (18:15)
[2016-12-22] MEDS ORDERED: MECLIZINE HCL 25 MG TAB PO ONE (18:15)
[2016-12-22 18:25] LABS: AUTOMATED NEUTROPHIL # 3.1 TH/MM3 (1.8-7.7); BASOPHIL % 0.7 % (0.0-2.0); EOSINOPHIL # 0.3 TH/MM3 (0-0.4); EOSINOPHIL % 4.6 % (0.0-4.0); HEMATOCRIT 36.1 % (35.0-46.0); HEMO FLAGS DIFF FINAL; LYMPH % 35.7 % (9.0-44.0); LYMPHOCYTE # 2.3 TH/MM3 (1.0-4.8); MEAN CELL VOLUME 90.6 FL (80.0-100.0); MEAN CORPUSCULAR HEMOGLOBIN 30.1 PG (27.0-34.0); MEAN CORPUSCULAR HGB CONC 33.3 % (32.0-36.0); MONO % 10.1 % (0.0-8.0); NEUT % 48.9 % (16.0-70.0); PLATELET COUNT 164 TH/MM3 (150-450); RED BLOOD COUNT 3.98 MIL/MM3 (4.00-5.30); RED CELL DISTRIBUTION WIDTH 13.9 % (11.6-17.2); WHITE BLOOD COUNT 6.4 TH/MM3 (4.0-11.0)
--- NOTE | 2016-12-22 19:00 | RADRPT ---
EXAM DATE/TIME: 12/22/2016 18:34 [facility] COMPARISON: No previous studies available for comparison. INDICATIONS : Cephalgia; dizziness. RADIATION DOSE: 56.35 CTDIvol (mGy) MEDICAL HISTORY : Carcinoma, breast. Hypertension. Chemotherapy. SURGICAL HISTORY : None. ENCOUNTER: Initial ACUITY: 1 day PAIN SCALE: 4/10 LOCATION: cranial TECHNIQUE: Multiple contiguous axial images were obtained of the head. Using automated exposure control and adj ustment of the mA and/or kV according to patient size, radiation dose was kept as low as reasonably a chievable to obtain optimal diagnostic quality images. FINDINGS: CEREBRUM: The ventricles are normal for age. No evidence of midline shift, mass lesion, hemorrhage or acute in farction. No extra-axial fluid collections are seen. POSTERIOR FOSSA: The cerebellum and brainstem are intact. The 4th ventricle is midline. The cerebellopontine angle i s unremarkable. EXTRACRANIAL: The visualized portion of the orbits is intact. SKULL: The calvaria is intact. No evidence of skull fracture. CONCLUSION: Negative noncontrast head CT. Michael Patrick MD on December 22, 2016 at 18:58 Board Certified Radiologist. This report was verified electronically.
[2016-12-22 19:05] LABS: BICARBONATE 32.1 MEQ/L (21.0-32.0); MAGNESIUM 2.2 MG/DL (1.5-2.5); POTASSIUM 3.3 MEQ/L (3.5-5.1)
[2016-12-22] MEDS ORDERED: MECL-62 PO (19:12)
[2016-12-22] MEDS ORDERED: POTASSIUM CHLORIDE 20 MEQ CONTROLLED RELEASE TAB PO ONE (19:15)
--- NOTE | 2016-12-23 13:15 | EKG ---
Date Performed: 12/22/2016 Time Performed: 17:45:22 PTAGE: 41 years EKG: Sinus rhythm NONSPECIFIC T-WAVE ABNORMALITY BORDERLINE ECG Compared to prior tracing no significant change PREVIOUS TRACING : 11/28/2016 16.21 DOCTOR: Dutch Carrion Interpretating Date/Time 12/23/2016 13:13:27
== END 2016-12-22 19:47 | disposition home or self-care (01) ==
LOC: NEPC 16:59
DX: R42 Dizziness and giddiness (principal); S80.11XA Contusion of right lower leg, initial encounter; S09.90XA Unspecified injury of head, initial encounter; I10 Essential (primary) hypertension; C50.511 Malignant neoplasm of lower-outer quadrant of right female breast; C73 Malignant neoplasm of thyroid gland; Z79.899 Other long term (current) drug therapy; V43.52XA Car driver injured in collision with other type car in traffic accident, initial encounter; Y93.9 Activity, unspecified; Y92.9 Unspecified place or not applicable; Y99.9 Unspecified external cause status
CPT/HCPCS: 70450; 80048; 83735; 85025; 93005; 96374; 99284; J2405; J7030

== ENCOUNTER → 2017-01-10 | Day surgery (SDC) | payer OTHER ==
[~2017-01-10] MED LIST changes: +BUPIVACAINE HCL PF 0.5% 10 ML VIAL ONE; +ISOSULFAN BLUE 50 MG/5 ML VIAL SQ ONE; +KETOROLAC TROMETHAMINE 30 MG/ML (IVP) VIAL IV PUSH ONE; +LACTATED RINGER'S 1000 ML INJ 1,000 ML ONE; +MECL-62 PO; +MEPERIDINE HCL 25 MG/ML VIAL ONE; +MIDAZOLAM HCL 2 MG/2 ML VIAL ONE; +ONDANSETRON HCL 4 MG/2 ML VIAL IV PUSH ONE; +PROPOFOL 200 MG/20 ML AMP IV ONE; +SODIUM CHLORIDE 0.9% INJ 10 ML ONE; +ceFAZolin 2 GM PREMIX 50 ML ONE
--- NOTE | 2017-01-10 13:00 | TN ---
cc: LENORE SANTOS DATE OF SURGERY 01/10/2017 PRINCIPAL DIAGNOSIS Locally advanced right breast cancer status post neoadjuvant chemotherapy. PROCEDURE PERFORMED Right breast needle-localized lumpectomy and right axillary sentinel lymph node biopsy. SURGEON Lenore Santos MD ANESTHESIA General via LMA device. INDICATION The patient is a 41-year-old [place] woman who presented with a palpable right breast mass late last year. Biopsy was positive for a HER2 positive stage II ductal carcinoma and she has completed neoadjuvant chemotherapy with Herceptin and pertuzumab. She had a good clinical response and now presents for definitive surgical therapy. FINDINGS AT THE TIME OF SURGERY One sentinel lymph node was removed which was 2+ blue with a count of 1018. Touch prep analysis was negative for metastatic disease. Specimen mammogram did demonstrate an intact wire and the biopsy clip and lesion were within the specimen. PROCEDURE PERFORMED After informed consent was obtained and site verification was performed, the patient was brought to the radiology suite where she underwent peritumoral radionuclide injection as well as placement of a wire at the site of her prior biopsy. She was then brought to the major operating room where she underwent general anesthesia via an LMA device. The right breast and arm were prepped and draped in a sterile fashion. An incision was anesthetized at the inferior aspect of the right axillary hairline utilizing Xylocaine. Both sharp and electrocautery dissection were performed until the clavipectoral fascia was divided and the level I axilla was entered. A large blue lymph node near the axillary tail of Johnson was identified and circumferentially dissected free from surrounding structures using the harmonic scalpel. This was the sentinel lymph node and was sent for touch prep and two nodes were found in the specimen and it was negative for metastatic disease. Some adjacent axillary nodes were circumferentially dissection free from surrounding structures using the harmonic scalpel and these were sent as a permanent specimen. Good hemostasis was noted and the wound was closed using interrupted 3-0 Vicryl subcutaneous sutures and a 4-0 Monocryl subcuticular suture. Attention was then turned to the right breast where a wire was identified at 7 o'clock 3 cm from the nipple. There was a residual indurated palpable area. An inframammary crease incision was anesthetized with 0.5% Marcaine and incised sharply. Electrocautery dissection was used to dissect superficially to the level where the wire entry point was identified and it was secured with a hemostat. The wire was cut off at the skin with pin cutters and a 2-0 silk transfixion suture was placed at the wire entry point into the breast tissue. Sharp and electrocautery dissection was then performed circumferentially around the wire and the specimen was oriented with two sutures anteriorly, one long suture laterally and one short suture superiorly. The specimen was sent to mammography with the findings as noted and was then sent for permanent pathologic evaluation. The anterior and superior margins were sharply re-excised with a stitch on each of the new margins and these were sent as permanent specimens. Hemostasis was easily obtained with electrocautery and the wound was closed using interrupted 3-0 Vicryl subcutaneous sutures and a 4-0 Monocryl subcuticular suture. Steri-Strips and a sterile dressing were applied to both wounds. The patient tolerated the procedure well with minimal blood loss and she was extubated in the operating room and brought to the recovery room in good condition. All sponge and needle counts were correct at the conclusion of the case. MD ROCKY Arce/CYNTHIA /12:40 PM /12:53 PM
== END | disposition home or self-care (01) ==
LOC: ESDC 07:16
PROVIDERS: ATTEND Surgery
DX: C50.911 Malignant neoplasm of unspecified site of right female breast (principal); Z92.3 Personal history of irradiation
CPT/HCPCS: 00400; 01610; 19125; 38525; 88305; 88307; 88333; J0690; J1885; J2175; J2250; J2405; J3010; J7120; Q9968

== ENCOUNTER → 2017-02-21 | Day surgery (SDC) | payer OTHER ==
[~2017-02-21] MED LIST changes: -BUPIVACAINE HCL PF 0.5% 10 ML VIAL ONE; +BUPIVACAINE/EPINEPHRINE 0.5% PF 10 ML VIAL ONE; -ISOSULFAN BLUE 50 MG/5 ML VIAL SQ ONE; -KETOROLAC TROMETHAMINE 30 MG/ML (IVP) VIAL IV PUSH ONE; +LACTATED RINGER'S 1,000 ML BAG IV ONE; +MORPHINE SULFATE 4 MG/ML INJ ONE; -SODIUM CHLORIDE 0.9% INJ 10 ML ONE
--- NOTE | 2017-02-21 13:08 | TN ---
cc: LENORE SANTOS DATE OF SURGERY 02/21/2017 PRINCIPAL DIAGNOSIS Residual right breast cancer status post neoadjuvant chemotherapy and lumpectomy. POSTOPERATIVE DIAGNOSIS Residual right breast cancer status post neoadjuvant chemotherapy and lumpectomy. PROCEDURE PERFORMED Right mastectomy SURGEON Lenore Santos MD ANESTHESIA General via LMA device. INDICATION The patient is a 41-year-old [place] female who presented with clinical stage II right breast cancer. She appeared to have an excellent clinical response to neoadjuvant chemotherapy and she had a lumpectomy and sentinel lymph node biopsy. There was a moderate amount of ductal carcinoma in situ involving multiple margins and the anterior margin was positive for invasive disease. She now presents for mastectomy. FINDINGS AT THE TIME OF SURGERY No gross evidence of residual disease was identified and the lumpectomy cavity was easily identified. PROCEDURE PERFORMED After informed consent was obtained and site verification was performed, the patient was brought to the major operating room where she was given a single dose of IV Ancef and sequential compression hose were placed. She then underwent general anesthesia via LMA device and the right breast and arm were prepped and draped in a sterile fashion. 200 cc of tumescent solution were infiltrated in the plane between the subcutaneous fat and anterior breast fascia circumferentially around the breast. An elliptical incision was then sharply created to incorporate the previous inframammary scar and lower outer quadrant skin. Electrocautery dissection was required because of the vascularity of the subcutaneous tissue. Multiple arterial vessels in the subcutaneous tissue were identified requiring extensive electrocautery. The breast tissue was also extremely dense. Dissection was performed in the anterior plane between the subcutaneous fat and anterior breast fascia superiorly to the clavicle, medially to the parasternal area, inferiorly to the anterior rectus sheath, and laterally to the axilla. The breast was then dissected off the pectoralis muscle using electrocautery. The specimen was oriented with the skin anterior, one short suture superiorly, and one long suture laterally. The specimen was sent for permanent pathologic evaluation and hemostasis was obtained. A stab wound was created along the lower outer skin and a 10-Yoruba Ismael drain was placed along the chest wall and secured to the skin with a 3-0 nylon suture. The wound was closed using interrupted 3-0 Vicryl subcutaneous sutures and a 4-0 Monocryl subcuticular suture. Steri-Strips and sterile dressings were applied. The patient tolerated the procedure well with an estimated blood loss of 500 cc and she was extubated in the operating room and brought to the recovery room in good condition. All sponge and needle counts were correct at the conclusion of the case. MD ROCKY Arce/CYNTHIA /12:54 PM /1:05 PM
== END | disposition home or self-care (01) ==
LOC: ESDC 08:14
PROVIDERS: ATTEND Surgery
DX: D05.11 Intraductal carcinoma in situ of right breast (principal)
CPT/HCPCS: 00400; 19303; 88307; J0690; J2175; J2250; J2270; J2405; J3010; J7120

== ENCOUNTER 2017-06-15 22:51 | Emergency (ER) | payer OTHER ==
[~2017-06-15] VITALS: Ht 157.5 cm; Wt 65.0 kg
[~2017-06-15 22:51] MED LIST changes: -BUPIVACAINE/EPINEPHRINE 0.5% PF 10 ML VIAL ONE; -LACTATED RINGER'S 1,000 ML BAG IV ONE; -LACTATED RINGER'S 1000 ML INJ 1,000 ML ONE; -MEPERIDINE HCL 25 MG/ML VIAL ONE; +METO1TAB9 PO; -METO50TA11 PO; -MIDAZOLAM HCL 2 MG/2 ML VIAL ONE; -MORPHINE SULFATE 4 MG/ML INJ ONE; -ONDANSETRON HCL 4 MG/2 ML VIAL IV PUSH ONE; -PROPOFOL 200 MG/20 ML AMP IV ONE; -ceFAZolin 2 GM PREMIX 50 ML ONE
[2017-06-15 22:54] VITALS: BP 141/72; PULSE 69; RESP 20; TEMP 97.1; O2SAT 100
[2017-06-15] MEDS ORDERED: POTA-163 PO (23:37)
[2017-06-15 23:40] VITALS: BP 115/79; PULSE 65; RESP 15
[2017-06-15] MEDS ORDERED: [UNRECOGNIZED DRUG - CODE] (23:40)
--- NOTE | 2017-06-16 00:14 | PD ---
HPI Chief Complaint: Chest Pain Time Seen by Provider: 00:09 Travel History International Travel<30 days: No Contact w/Intl Traveler<30days: No Traveled to known affect area: No History of Present Illness HPI 41-year-old female presents to the emergency department by private transportation the care of her spouse for evaluation of chest pain. According to the patient she started noticing chest pain this evening around 10 PM while she was at work patient states shortly thereafter she noticed that pain worsened with taking a deep breath. Patient has never had pain like this before. Pain is initially 6/10 in intensity. Pain is nonradiating. No hemoptysis. Patient has had a cough for the past while and has been on antibiotic but she is currently not on any antibiotic. Patient denies any abdominal pain. Patient is currently undergoing chemotherapy and radiation therapy for right breast cancer and is status post mastectomy. Patient had her mastectomy she believes in February of this year. Patient denies any lower extremity pain or swelling. Patient's had no recent long distance travel protracted bedrest or recent surgical intervention. Patient denies personal history of dyslipidemia diabetes tobaccoism or premature onset heart disease in her family. Patient does have history of hypertension. PFSH Past Medical History Narrative Medical breast cancer with thyroid cancer mastectomy chemotherapy radiation therapy hypertension appendectomy fine-needle aspiration thyroid mastectomy Infuse-a- Port; no tobacco use; nursing notes reviewed Cancer: Yes (BREAST AND THYROID) Cardiovascular Problems: Yes (HTN ) Chemotherapy: Yes Diabetes: No Endocrine: No Genitourinary: No Hepatitis: No Hiatal Hernia: No Hypertension: Yes Immune Disorder: No Implanted Vascular Access Dvce: Yes (PORT LEFT CHEST) Musculoskeletal: No Neurologic: No Psychiatric: No Reproductive: No Respiratory: Yes (PNEUMONIA ) Thyroid Disease: No ?: Not LMP: not since jaunuary when they started pt on chemo : 1 Para: 0 Miscarriage: 0 : 0 Past Surgical History Abdominal Surgery: Yes (appy) AICD: No Appendectomy: Yes Section: Yes Ear Surgery: Yes (r ear tympanic) Gynecologic Surgery: Yes (c section, right side masectomy) Joint Replacement: No Pacemaker: No Other Surgery: Yes (PORT PLACED LEFT) Social History Alcohol Use: No Tobacco Use: No Substance Use: No Allergies-Medications (Allergen,Severity, Reaction): Coded Allergies: hydrocodone (Verified Allergy, Severe, Shortness of Breath, 06/15/17) oxycodone (Verified Allergy, Severe, Shortness of Breath, 06/15/17) methocarbamol (Verified Adverse Reaction, Severe, PRESSURE ON CHEST, 06/15) Reported Meds & Prescriptions Reported Meds & Active Scripts Active Meclizine (Meclizine HCl) 25 Mg Tab 25 Mg PO TID PRN Reported Perjeta Inj (Pertuzumab) 420 Mg/14 Ml (30 Mg/Ml) Inj Potassium Chloride ER (Potassium Chloride) 20 Meq Tab 20 Meq PO DAILY Hydrochlorothiazide 12.5 Mg Tab 12.5 Mg PO DAILY Metoprolol Succinate ER 24 HR (Metoprolol Succinate) 50 Mg Tab 50 Mg PO DAILY Review of Systems Except as stated in HPI: all other systems reviewed are Neg Physical Exam Narrative GENERAL: Well-developed well-nourished female in no acute distress no respiratory distress SKIN: Warm and dry. HEAD: Normocephalic. EYES: No scleral icterus. No injection or drainage. NECK: Supple, trachea midline. No JVD or lymphadenopathy. CARDIOVASCULAR: Regular rate and rhythm without murmurs, gallops, or rubs. Chest wall: right mastectomy left [id number] palpation of the left chest wall area where patient points to discomfort is tender and reproduces pain of presentation no induration no erythema no vesicular rash no crepitus no bony tenderness no ecchymosis no abrasion. RESPIRATORY: Breath sounds equal bilaterally. No accessory muscle use. GASTROINTESTINAL: Abdomen soft, non-tender, nondistended. MUSCULOSKELETAL: No cyanosis, or edema. BACK: Nontender without obvious deformity. No CVA tenderness. Data Data Last Documented VS Vital Signs Date Time Temp Pulse Resp B/P (MAP) Pulse Ox O2 Delivery O2 Flow Rate FiO2 06/16/17 04:41 Room Air 06/16/17 04:40 96 06/16/17 03:36 78 16 06/15/17 22:54 97.1 Orders Orders Basic Metabolic Panel (Bmp) (06/16/17 00:09) Ckmb (Isoenzyme) Profile (06/16/17 00:09) Complete Blood Count With Diff (06/16/17 00:09) D-Dimer (06/16/17 00:09) Magnesium (Mg) (06/16/17 00:09) Prothrombin Time / Inr (Pt) (06/16/17 00:09) Act Partial Throm Time (Ptt) (06/16/17 00:09) Troponin I (06/16/17 00:09) Chest, Single Ap (06/16/17 00:09) Ecg Monitoring (06/16/17 00:09) Bilateral Bp Monitoring (06/16/17 00:09) Iv Access Insert/Monitor (06/16/17 00:09) Oximetry (06/16/17 00:09) Oxygen Administration (06/16/17 00:09) Sodium Chloride 0.9% Flush (Ns Flush) (06/16/17 00:15) Potassium Chloride (Kcl) (06/16/17 01:30) Ketorolac Inj (Toradol Inj) (06/16/17 02:45) Ed Discharge Order (06/16/17 02:47) Heparin Central Flush (Heparin Central F (06/16/17 03:15) Labs Laboratory Tests Test 06/16/17 00:40 White Blood Count 5.2 TH/MM3 Red Blood Count 3.73 MIL/MM3 Hemoglobin 11.2 GM/DL Hematocrit 32.9 % Mean Corpuscular Volume 88.4 FL Mean Corpuscular Hemoglobin 30.0 PG Mean Corpuscular Hemoglobin Concent 33.9 % Red Cell Distribution Width 14.8 % Platelet Count 133 TH/MM3 Mean Platelet Volume 8.6 FL Neutrophils (%) (Auto) 69.9 % Lymphocytes (%) (Auto) 13.7 % Monocytes (%) (Auto) 11.6 % Eosinophils (%) (Auto) 4.0 % Basophils (%) (Auto) 0.8 % Neutrophils # (Auto) 3.6 TH/MM3 Lymphocytes # (Auto) 0.7 TH/MM3 Monocytes # (Auto) 0.6 TH/MM3 Eosinophils # (Auto) 0.2 TH/MM3 Basophils # (Auto) 0.0 TH/MM3 CBC Comment DIFF FINAL Differential Comment Prothrombin Time 13.7 SEC Prothromb Time International Ratio 1.2 RATIO Activated Partial Thromboplast Time 32.2 SEC D-Dimer Quantitative (PE/DVT) LESS THAN 0.19 MG/L FEU Blood Urea Nitrogen 17 MG/DL Creatinine 0.63 MG/DL Random Glucose 85 MG/DL Calcium Level 8.2 MG/DL Magnesium Level 2.1 MG/DL Sodium Level 139 MEQ/L Potassium Level 3.0 MEQ/L Chloride Level 103 MEQ/L Carbon Dioxide Level 27.4 MEQ/L Anion Gap 9 MEQ/L Estimat Glomerular Filtration Rate 105 ML/MIN Total Creatine Kinase 86 U/L Troponin I LESS THAN 0.02 NG/ML MDM Medical Decision Making Medical Screen Exam Complete: Yes Emergency Medical Condition: Yes Medical Record Reviewed: Yes Interpretation(s) Troponin I is less than 0.02, not elevated D-dimer is less than 0.19, not elevated EKG normal sinus rhythm rate [address] elevation injury pattern or ectopy normal axis and intervals Last Impressions Chest X-Ray 06/16/17 0009 Signed Impressions: Service Date/Time: Friday, June 16, 2017 00:48 - CONCLUSION: Normal examination. Left-sided Uaijhe-n-Fhhz catheter Daniel Frey MD CBC & BMP Diagram 06/16/17 00:40 Calcium Level 8.2 L, Magnesium Level 2.1 Vital Signs Date Time Temp Pulse Resp B/P (MAP) Pulse Ox O2 Delivery O2 Flow Rate FiO2 06/15/17 23:40 65 15 115/79 (91) Room Air 06/15/17 22:54 97.1 69 20 141/72 (95) 100 Room Air Differential Diagnosis Chest pain atypical chest pain ACS pneumothorax PE pneumonia shingles muscular skeletal pain Narrative Course Patient placed on director cardiac with continuous pulse oximetry EKG obtained in triage shows sinus rhythm with no acute injury pattern change; IV access obtained specimens collected and sent for resulting Patient resting comfortably voicing no concerns or complaints. Patient continues to have reproducible left chest wall tenderness to palpation. Lab values are found to be grossly within normal limits specifically troponin I is less than 0.02 and d-dimer is less than 0.19 not elevated EKG shows no acute injury pattern changed chest x-ray is unremarkable for acute process and patient is asymptomatic except with palpation of the left chest wall there is no rash or indication for shingles. Patient responded well to nonsteroidal anti -inflammatory medication Toradol IV and is stable for outpatient management. Diagnosis Primary Impression: Left-sided chest wall pain Referrals: Graciela Galeana MD call for appointment Patient Instructions: General Instructions Additional Instructions: Increase fluid hydration Follow-up with your primary care provider/Dr. aGleana Return to the emergency department for any concerns or change in condition Take as tolerated ibuprofen 600 mg as often as every 6-8 hours as needed for pain associated inflammation or for fever 100.4F or greater Med/Other Pt SpecificInfo: No Change to Meds Disposition: 01 DISCHARGE HOME Condition: Stable Jennie Chaudhry MD Jun 16, 2017 00:14
[2017-06-16] MEDS ORDERED: SODIUM CHLORIDE 0.9% FLUSH 10 ML FLUSH IVF PRN (00:15)
[2017-06-16 00:57] LABS: AUTOMATED NEUTROPHIL # 3.6 TH/MM3 (1.8-7.7); BASOPHIL % 0.8 % (0.0-2.0); EOSINOPHIL # 0.2 TH/MM3 (0-0.4); HEMATOCRIT 32.9 % (35.0-46.0); HEMO FLAGS DIFF FINAL; LYMPH % 13.7 % (9.0-44.0); LYMPHOCYTE # 0.7 TH/MM3 (1.0-4.8); MEAN CELL VOLUME 88.4 FL (80.0-100.0); MEAN CORPUSCULAR HGB CONC 33.9 % (32.0-36.0); MONO % 11.6 % (0.0-8.0); NEUT % 69.9 % (16.0-70.0); PLATELET COUNT 133 TH/MM3 (150-450); RED BLOOD COUNT 3.73 MIL/MM3 (4.00-5.30); RED CELL DISTRIBUTION WIDTH 14.8 % (11.6-17.2); WHITE BLOOD COUNT 5.2 TH/MM3 (4.0-11.0)
--- NOTE | 2017-06-16 01:11 | RADRPT ---
EXAM DATE/TIME: 06/16/2017 00:48 [facility] COMPARISON: CHEST SINGLE AP, November 28, 2016, 15:43. INDICATIONS : Chest pain MEDICAL HISTORY : Carcinoma, breast. Hypertension Chemotherapy SURGICAL HISTORY : None. ENCOUNTER: Initial ACUITY: 1 day PAIN SCORE: 8/10 LOCATION: Bilateral chest FINDINGS: A single view of the chest demonstrates the lungs to be symmetrically aerated without evidence of mas s, infiltrate or effusion. The cardiomediastinal contours are unremarkable. Osseous structures are intact. CONCLUSION: Normal examination. Left-sided Phalig-z-Eygw catheter Daniel Frey MD on June 16, 2017 at 1:09 Board Certified Radiologist. This report was verified electronically.
[2017-06-16 01:13] LABS: APTT (PATIENT) 32.2 SEC (24.3-30.1); INTERNATIONAL NORMALIZED RATIO 1.2 RATIO; PROTHROMBIN TIME - PATIENT 13.7 SEC (9.8-11.6)
[2017-06-16 01:17] LABS: ANION GAP 9 MEQ/L (5-15); BICARBONATE 27.4 MEQ/L (21.0-32.0); BLOOD UREA NITROGEN 17 MG/DL (7-18); CHLORIDE 103 MEQ/L (98-107); GLOMERULAR FILTRATION RATE 105 ML/MIN (>89); MAGNESIUM 2.1 MG/DL (1.5-2.5); SODIUM (NA) 139 MEQ/L (136-145)
[2017-06-16 01:20] LABS: CREATINE KINASE 86 U/L (26-192)
[2017-06-16] MEDS ORDERED: POTASSIUM CHLORIDE 20 MEQ CONTROLLED RELEASE TAB PO ONE (01:30)
[2017-06-16] MEDS ORDERED: KETOROLAC TROMETHAMINE 30 MG/ML (IVP) VIAL IV PUSH ONE (02:45)
[2017-06-16 03:36] VITALS: BP 112/68; PULSE 78; RESP 16
--- NOTE | 2017-06-16 19:25 | EKG ---
Date Performed: 06/15/2017 Time Performed: 23:08:15 PTAGE: 41 years EKG: Sinus rhythm NORMAL ECG Since PREVIOUS TRACING , no significant change noted PREVIOUS TRACIN12/22/2016 17.45 DOCTOR: Dilip Mcqueen Interpretating Date/Time 06/16/2017 19:24:18
== END 2017-06-16 04:41 | disposition home or self-care (01) ==
LOC: NEPC 22:51
DX: R07.89 Other chest pain (principal); R05 Cough; I10 Essential (primary) hypertension; Z79.899 Other long term (current) drug therapy; Z85.3 Personal history of malignant neoplasm of breast; Z85.850 Personal history of malignant neoplasm of thyroid; Z86.79 Personal history of other diseases of the circulatory system
CPT/HCPCS: 71010; 80048; 82550; 83735; 84484; 85025; 85379; 85610; 85730; 93005; 96374; 99285; J1642; J1885

== ENCOUNTER → 2017-09-09 | Day surgery (SDC) | payer OTHER ==
[~2017-09-09] VITALS: Ht 157.5 cm; Wt 64.4 kg
[~2017-09-09] MED LIST changes: +ACETAMINOPHEN 1000 MG/100 ML 100 ML IV SCH; +CHLORHEXIDINE GLUCONATE 2 % 1 PACK (2 CLOTHS) TOPICAL PRN; +DEXAMETHASONE SOD PHOS 4 MG/ML VIAL IV ONE; +DO NOT ADM ANY ANTICOAGULANT DRUGS PRN; +HYDROmorphone HCL PF 2 MG/ML VIAL ONE; +KETOROLAC TROMETHAMINE 30 MG/ML (IVP) VIAL IV PUSH ONE; +KETOROLAC TROMETHAMINE 30 MG/ML (IVP) VIAL ONE; +LACTATED RINGER'S 1000 ML IV PRN; -LIDO1KIT30 TOPICAL; +LIDOCAINE HCL 1% PF 5 ML SYRINGE OTHER ONE; +METOPROLOL TARTRATE 25 MG TAB PO PRN; +MIDAZOLAM HCL 2 MG/2 ML VIAL ONE; +ONDANSETRON HCL 4 MG/2 ML VIAL IV ONE; +ONDANSETRON HCL 4 MG/2 ML VIAL IV PUSH PRN; +ONDANSETRON HCL 4 MG/2 ML VIAL ONE; +PHENYLEPH/NS 1000 MCG/10 ML SYR IV ONE; +POTA-163 PO; +POVIDONE IODINE 5% (ANTISEPSIS KIT) 4 APPLICATIONS EACH NARE PRN; -PROC10TA PO; +PROPOFOL 200 MG/20 ML AMP IV ONE; +PROPOFOL 500 MG/50 ML INJ 50 ML ONE; +SODIUM CHLORID 0.9% 500 ML IV PRN; +SODIUM CHLORIDE 0.9% FLUSH 10 ML FLUSH IV FLUSH PRN; +SODIUM CHLORIDE 0.9% FLUSH 10 ML FLUSH IV FLUSH SCH; +SUCCINYLCHOLINE CHLORIDE 100 MG/5 ML SYRINGE IV PUSH ONE; +TAMO20TA6 PO; -ZOFR4TAB PO; +[UNRECOGNIZED DRUG - CODE]
[2017-09-09 14:15] VITALS: BP 101/64; PULSE 63; RESP 16; TEMP 98; O2SAT 98
== END | disposition home or self-care (01) ==
LOC: HSDC 06:44
PROVIDERS: ATTEND Surgery
DX: C73 Malignant neoplasm of thyroid gland (principal); C50.511 Malignant neoplasm of lower-outer quadrant of right female breast; Z17.0 Estrogen receptor positive status [ER+]; I10 Essential (primary) hypertension; G47.00 Insomnia, unspecified; M54.5 Low back pain; J18.9 Pneumonia, unspecified organism; J06.9 Acute upper respiratory infection, unspecified; D64.81 Anemia due to antineoplastic chemotherapy; T45.1X5A Adverse effect of antineoplastic and immunosuppressive drugs, initial encounter; J30.9 Allergic rhinitis, unspecified; R13.10 Dysphagia, unspecified; R05 Cough; H91.93 Unspecified hearing loss, bilateral; E66.3 Overweight
CPT/HCPCS: 00320; 60210; 88307; J0330; J1100; J1170; J1885; J2250; J2370; J2405; J3010; J7120